=== PATIENT | female | born 1955 | race Caucasian/White ===

== ENCOUNTER 2019-11-14 13:07 | Outpatient (CLI) | payer MEDICARE, MEDICAID, SELFPAY ==
--- NOTE | ~2019-11-14 | CT_ITS ---
EXAMINATION: CT hip LT wo con, CT hip RT wo con, CT pelvis wo con DATE: 11/14/2019 14:24 INDICATION: Low back and bilateral hip pain TECHNIQUE: High resolution computed tomography (CT) of the pelvis and of the left and right hips was performed without intravenous contrast. Additional sagittal and coronal reconstructions were performe d. Automated exposure control and iterative reconstruction technique were employed. The dose-length p roduct for the combined studies was 1125.14 mGy-cm. COMPARISON: MR dated 08/29/[address] dated 05/01/2014 FINDINGS: Bone alignment is normal. No fracture. Osteoarthritis at the bilateral hips which has progressed sinc e the prior study. At the left hip there is extensive subarticular cystic change along the medial, cervantes perior and posterior aspects of the femoral head with additional subarticular cystic changes along th e posterior left acetabulum. There is moderate joint space are at the left hip which could be underes timated on nonweightbearing imaging. There is mild joint space narrowing at the right hip with mild s ubarticular cystic change along the posterior right acetabulum. No joint effusion at either hip. Ther e is spondylosis of the visualized mid to lower lumbar spine with moderate to severe bilateral facet osteoarthritis. Moderate disc height loss at L3-L4 and mild disc height loss at L5-S1. Rectus diastases with significant laxity of the lower anterior abdominal wall. Small fat-containing u mbilical hernia along a midline surgical scar. No significant interval change in a 5.5 x 3.8 cm parti ally calcified mass in the right lower quadrant visualized portions of the bowels are unremarkable wi th no wall thickening or obstruction. Cyst at the lower pole of the right kidney. The uterus and deco mpressed bladder are unremarkable. No pathologically enlarged pelvic or inguinal lymphadenopathy. IMPRESSION: 1. Moderate to severe left and mild to moderate right hip osteoarthritis. 2. Lumbar spondylosis with moderate to severe facet osteoarthritis in the mid to lower lumbar spine. 3. No significant interval change since 04/21/2014 in a chronic 5.5 x 3.6 cm partially calcified mixed solid and cystic mass in the right lower quadrant. Differential would include sclerosing mesenteriti s, carcinoid tumor and fat necrosis with heterotopic ossification. Reviewed, dictated and finalized at location A. IMPRESSION: 1. Moderate to severe left and mild to moderate right hip osteoarthritis. 2. Lumbar spondylosis with moderate to severe facet osteoarthritis in the mid t o lower lumbar spine. 3. No significant interval change since 04/21/2014 in a chronic 5.5 x 3.6 cm par tially calcified mixed solid and cystic mass in the right lower quadrant. Diffe rential would include sclerosing mesenteritis, carcinoid tumor and fat necrosis with heterotopic ossification. IMPRESSION: 1. Moderate to severe left and mild to moderate right hip osteoarthritis. 2. Lumbar spondylosis with moderate to severe facet osteoarthritis in the mid t o lower lumbar spine. 3. No significant interval change since 04/21/2014 in a chronic 5.5 x 3.6 cm par tially calcified mixed solid and cystic mass in the right lower quadrant. Diffe rential would include sclerosing mesenteritis, carcinoid tumor and fat necrosis with heterotopic ossification.
== END 2019-11-14 13:08 | disposition home or self-care (01) ==
LOC: ANHIMG 13:12
PROVIDERS: PCP Family Medicine; Visit Provider Nurse Practitioner Family
DX: M16.11 Unilateral primary osteoarthritis, right hip (principal); M25.552 Pain in left hip; M47.896 Other spondylosis, lumbar region
CPT/HCPCS: 72192; 73700

== ENCOUNTER 2020-01-30 12:29 | Outpatient (CLI) | payer MEDICARE, MEDICAID, SELFPAY ==
--- NOTE | ~2020-01-30 | MMUS_ITS ---
EXAMINATION: MM diagnostic amanda RT w anival, US breast RT limited HISTORY: Abnormal outside mammogram from imaging Center TECHNIQUE: Additional 3-D tomosynthesis images of the right breast were performed and synthetic 2-D i mages were generated. CAD analysis was submitted and interpreted. High resolution targeted right axil brett ultrasound breast ultrasound was performed. COMPARISON: 12/17/2019 outside right mammogram 09/26/2018 bilateral digital screening mammogram BREAST PARENCHYMAL COMPOSITION: The breast is almost entirely fatty. FINDINGS: MAMMOGRAPHIC FINDINGS: Postoperative change is again noted with surgical clips and prominent area of calcified fat necrosis as well as some retraction. There is an irregular approximately 1.4 cm mass in the right axillary tail area. ULTRASOUND: There is an irregular hypoechoic shadowing mass with internal vascularity at 10:00 11 cm from the nip ple, measuring up to approximately 1.5 cm. This has tentacle-like projections. This is highly suggest alex of malignancy. Appropriate action should be taken. IMPRESSION: 1. 1.5 cm irregular solid shadowing mass at 10:00 11 cm from nipple, highly suggestive of malignancy 2. Ultrasound-guided biopsy is recommended BI-RADS category 5, highly suggestive of malignancy. Dr. Montoya telephoned the report on 01/30/2020 at 1419 hours to [facility]'s office voicemail. Reviewed, dictated and finalized at location A. IMPRESSION: 1. 1.5 cm irregular solid shadowing mass at 10:00 11 cm from nipple, highly sug gestive of malignancy 2. Ultrasound-guided biopsy is recommended BI-RADS category 5, highly suggestive of malignancy. Dr. Montoya telephoned the report on 01/30/2020 at 1419 hours to [facility]'s off ice voicemail. IMPRESSION: 1. 1.5 cm irregular solid shadowing mass at 10:00 11 cm from nipple, highly sug gestive of malignancy 2. Ultrasound-guided biopsy is recommended BI-RADS category 5, highly suggestive of malignancy. Dr. Montoya telephoned the report on 01/30/2020 at 1419 hours to [facility] off ice voicemail.
== END 2020-01-30 12:30 | disposition home or self-care (01) ==
PROVIDERS: PCP Family Medicine; Visit Provider Nurse Practitioner Family
DX: R92.8 Other abnormal and inconclusive findings on diagnostic imaging of breast (principal)
CPT/HCPCS: 76642; 77061; 77065; G0279

== ENCOUNTER 2020-02-18 10:15 | Outpatient (CLI) | payer MEDICARE, MEDICAID, SELFPAY ==
--- NOTE | ~2020-02-18 | MMUS_ITS ---
EXAMINATION: US breast biopsy RT w image, MM post biopsy invasive RT DATE: 02/18/2020 12:20 (accession [id number]), 02/18/2020 12:33 (accession [id number]) INDICATION: Suspicious right breast mass. Ultrasound-guided core biopsy is requested to evaluate for malignancy. TECHNIQUE AND FINDINGS: The risks and potential benefits of the procedure were discussed with the patient including bleeding and infection. A time out was performed. The skin of the right breast was prepared and draped in usua l sterile fashion. 1% lidocaine was used for superficial anesthesia. 1% lidocaine with epinephrine wa s used for deep anesthesia. A vacuum-assisted biopsy gun needle was advanced through to the outer edge of the region of interest from an inferolateral approach utilizing sonographic guidance. A total of four tissue core samples we re obtained through the lesion. A tissue marker clip was then placed at the biopsy site. Hemostasis w as achieved. A sterile bandage was applied. The patient tolerated procedure well and there was no evidence of immediate complication. The patient was given verbal instructions to return to the Emergency Department in the event of severe breast pa in or rapid breast enlargement. A two view right breast mammogram was obtained to document tissue mar ker clip placement. IMPRESSION: 1. Successful ultrasound-guided vacuum-assisted biopsy of right breast mass with tissue marker placem ent. Reviewed, dictated and finalized at location A. X UNIX SYSTEM ADMINISTRATOR IMPRESSION: 1. Successful ultrasound-guided vacuum-assisted biopsy of right breast mass wit h tissue marker placement.
== END 2020-02-18 10:16 | disposition home or self-care (01) ==
PROVIDERS: PCP Family Medicine; Visit Provider Internal Medicine Medical Oncology
DX: C50.411 Malignant neoplasm of upper-outer quadrant of right female breast (principal); Z17.0 Estrogen receptor positive status [ER+]; N63.10 Unspecified lump in the right breast, unspecified quadrant
CPT/HCPCS: 19083; 88305; 88342; A4648

== ENCOUNTER 2020-06-10 14:40 | Outpatient (CLI) | payer MEDICARE, MEDICAID, SELFPAY ==
--- NOTE | ~2020-06-10 | US_ITS ---
US breast RT limited 06/10/2020 15:11 Indication: History of right breast cancer. Invasive ductal carcinoma. Biopsy performed on 02/18/2020 . 3 months of oral treatment. Procedure: High-resolution Limited ultrasound of the right breast Comparison: Ultrasound dated 02/18/2020 and 01/30/2020 Findings: At 10:00, 11 cm from the nipple, there is a hypoechoic mass with posterior shadowing measur ing 1.0 x 1.0 x 0.9 cm compared with 1.7 x 1.2 x 1.0 cm on prior ultrasound. No additional masses are identified. No internal vascularity. Impression: 1: Decreased size of hypoechoic solid mass right breast at 10:00, 11 cm from the nipple. BI-RADS category 6- Known biopsy proven malignancy: Appropriate action should be taken. Reviewed, dictated and finalized at location A. TER Impression: 1: Decreased size of hypoechoic solid mass right breast at 10:00, 11 cm from th e nipple. BI-RADS category 6- Known biopsy proven malignancy: Appropriate action should b e taken.
== END 2020-06-10 14:41 | disposition home or self-care (01) ==
LOC: ANHIMG 14:51
PROVIDERS: PCP Nurse Practitioner Family; Visit Provider Internal Medicine Medical Oncology
DX: C50.411 Malignant neoplasm of upper-outer quadrant of right female breast (principal); Z17.0 Estrogen receptor positive status [ER+]
CPT/HCPCS: 76642

== ENCOUNTER 2020-09-11 13:50 | Outpatient (CLI) | payer MEDICARE, MEDICAID, SELFPAY ==
--- NOTE | ~2020-09-11 | US_ITS ---
US breast RT limited 09/11/2020 14:37 Indication: History of right breast cancer. Evaluate change in size. Procedure: High-resolution Limited ultrasound of the right breast Comparison: Comparison to multiple prior studies sequentially, with oldest reviewed study dated 01/09. Findings: At 10:00, 11 cm from the nipple, there is an oval hypoechoic mass with posterior shadowing measuring 9.1 x 8.6 x 8.2 cm compared with 9.8 x 9.2 x 9.6 cm on prior examination. This mass measure d 14.6 x 15.3 x 9.7 cm on 01/30/2020. Impression: 1: Decreased size of solid hypoechoic right breast mass located at 10:00, 11 cm from the nipple. BI-RADS category 6- Known biopsy proven malignancy: Appropriate action should be taken. Reviewed, dictated and finalized at location A. Impression: 1: Decreased size of solid hypoechoic right breast mass located at 10:00, 11 cm from the nipple. BI-RADS category 6- Known biopsy proven malignancy: Appropriate action should b e taken.
== END 2020-09-11 13:51 | disposition home or self-care (01) ==
PROVIDERS: PCP Nurse Practitioner Family; Visit Provider Internal Medicine Medical Oncology
DX: N63.10 Unspecified lump in the right breast, unspecified quadrant (principal); R92.8 Other abnormal and inconclusive findings on diagnostic imaging of breast
CPT/HCPCS: 76642

== ENCOUNTER 2021-01-13 14:27 | Outpatient (CLI) | payer MEDICARE, MEDICAID, SELFPAY ==
--- NOTE | ~2021-01-13 | US_ITS ---
US breast RT limited DATE: 01/13/2021 14:58 INDICATION: Malignant neoplasm of upper outer quadrant of right breast TECHNIQUE: Real-time imaging targeted to right upper outer quadrant breast mass at 10:00 11 cm from t he nipple COMPARISON: 09/11/2020 right Limited breast ultrasound FINDINGS: There is mildly diminished size of the upper outer quadrant right breast mass at 10:00 11 c m from the nipple, currently measuring approximately 8.5 mm maximal dimension compared to 9.8 mm maxi mal dimension on 06/27/2020. Mild associated posterior shadowing is noted. IMPRESSION: BI-RADS Category 6: Known right breast malignancy Mildly diminished size of 10:00 right breast mass since 06/27/2020 Reviewed, dictated and finalized at Location A. Reviewed, dictated and finalized at location A.
== END 2021-01-13 14:28 | disposition home or self-care (01) ==
LOC: ANHIMG 14:32
PROVIDERS: PCP Nurse Practitioner Family; Visit Provider Internal Medicine Medical Oncology
DX: C50.411 Malignant neoplasm of upper-outer quadrant of right female breast (principal); Z17.0 Estrogen receptor positive status [ER+]
CPT/HCPCS: 76642

== ENCOUNTER 2021-01-28 15:00 | Outpatient (CLI) | payer MEDICARE, MEDICAID, SELFPAY ==
--- NOTE | ~2021-01-28 | MM_ITS ---
EXAMINATION: MM screening amanda BI w anival HISTORY: Screening; status post right partial mastectomy and radiotherapy for breast cancer. TECHNIQUE: Craniocaudal and mediolateral oblique 3-D tomosynthesis images were obtained and synthetic 2-D images were generated. CAD analysis was submitted and interpreted. COMPARISON: No prior mammogram is available for comparison at this institution. BREAST PARENCHYMAL COMPOSITION: The breasts are almost entirely fatty. FINDINGS: Right breast: There is prominent calcified fat necrosis and adjacent surgical clips and some overlyin g retraction in the anterior central right breast consistent with prior partial mastectomy There is a biopsy marker associated with an approximately 8 x 9 mm mildly irregular mass in the right axillary tail on MLO view. This corresponds to the hypoechoic mass with posterior shadowing in the r ight breast at 10:00 11 cm from the nipple noted on 01/13/2021 Limited right breast ultrasound examina tion Left breast: There is no evidence of suspicious mass, calcification, or architectural distortion to s uggest malignancy in the left breast. There has been no suspicious interval change. IMPRESSION: 1. Known right breast malignancy 2. Approximately 8 x 9 mm mildly irregular likely malignant lesion in the right axillary tail 3. Status post right partial mastectomy for breast cancer BI-RADS Category 6: Known right breast malignancy Reviewed, dictated and finalized at location A.
== END 2021-01-28 15:01 | disposition home or self-care (01) ==
LOC: ANHIMG 15:03
PROVIDERS: PCP Nurse Practitioner Family; Visit Provider Internal Medicine Medical Oncology
DX: Z12.31 Encounter for screening mammogram for malignant neoplasm of breast (principal)
CPT/HCPCS: 77063; 77067

== ENCOUNTER → 2021-02-17 15:13 | Outpatient (CLI) | payer OTHER, SELFPAY ==
--- NOTE | ~2021-02-17 | XR_ITS ---
XR knee LT 2V 02/17/2021 15:38 Indication: Left knee pain Procedure: 2 views left knee Comparison: No prior studies for comparison. Findings: There is severe osteoarthritis of the left knee. No acute fracture or traumatic malalignmen t. Large amount of suprapatellar soft tissue swelling. Osteopenia. Impression: 1: Severe osteoarthritis of the left knee. Reviewed, dictated and finalized at location A. PLATE GRAINER Impression: 1: Severe osteoarthritis of the left knee.
--- NOTE | ~2021-02-17 | XR_ITS ---
EXAMINATION: XR knee RT 2V DATE: 02/17/2021 15:38 INDICATION: Right knee pain. TECHNIQUE: 2 views of right knee standing were obtained. COMPARISON: None. FINDINGS: There is varus angulation at the knee. No fracture. There is severe osteoarthritis of media l and patellofemoral compartments and mild osteoarthritis of lateral compartment. No knee joint effus ion. IMPRESSION: 1. Severe right knee osteoarthritis. Reviewed, dictated and finalized at location A. K MASON
== END ==
PROVIDERS: Visit Provider Nurse Practitioner Family
DX: M25.561 Pain in right knee (principal); M25.562 Pain in left knee; M17.0 Bilateral primary osteoarthritis of knee
CPT/HCPCS: 73560

== ENCOUNTER 2021-05-19 15:06 | Outpatient (CLI) | payer MEDICARE, MEDICAID, SELFPAY ==
--- NOTE | ~2021-05-19 | CT_ITS ---
EXAMINATION:CT diagnostic chest w con DATE: 05/19/2021 16:39 INDICATION: Other nonspecific abnormal finding in lung field. Left lung mass. TECHNIQUE: Computed tomography (CT) of the chest was performed with 75 mL Omnipaque 350 intravenous c ontrast. Automated exposure control and iterative reconstruction technique were employed. The dose-le ngth product (DLP) was 786.05 mGy-cm. COMPARISON: CT abdomen and pelvis 04/21/2014 FINDINGS: There is a 5.0 x 5.0 cm mass in left lung upper lobe. There is a 12 mm nodule in left upper lobe. There is a 15 mm nodule left lower lobe. There is a 4.3 x 1.7 cm mass in left lower lobe. Ther e is mild peripheral scarring in anterior right lung. There is mild atelectasis bilaterally. No pleur al effusion. There is a multinodular goiter. Cardiomegaly is noted. There are coronary artery calcifi cations. No pericardial effusion. The central pulmonary arteries are enlarged, consistent with pulmon stephani arterial hypertension. There is moderate thoracic spondylosis. IMPRESSION: 1. Masses and nodules in left lung, consistent with metastatic disease. Reviewed, dictated and finalized at location A. NTED HOGSHEAD ASSEMBLER
--- NOTE | ~2021-05-19 | US_ITS ---
EXAMINATION: US breast RT limited HISTORY: Malignant neoplasm of the upper outer quadrant of the right breast TECHNIQUE: Limited right breast ultrasound is performed. COMPARISON: 01/13/2021, 09/11/2020, 06/10/2020 FINDINGS: There is a stable 8 mm x 5 mm oval, circumscribed, parallel, hypoechoic mass with posterior acoustic shadowing and no internal vascularity at the 10:00 location 11 cm from the nipple correspon ding to the known malignancy. There has been no suspicious interval change. IMPRESSION: Stable right breast mass, consistent with known malignancy. BI-RADS category 6, known, biopsy-proven malignancy. Reviewed, dictated and finalized at location A. T SPECIALIST
[2021-05-19 16:37] LABS: Estimated Glomerular Filt Rate > 60
== END 2021-05-19 15:07 | disposition home or self-care (01) ==
LOC: ANHIMG 15:17
PROVIDERS: PCP Nurse Practitioner Family; Visit Provider Internal Medicine Medical Oncology
DX: C50.411 Malignant neoplasm of upper-outer quadrant of right female breast (principal); Z17.0 Estrogen receptor positive status [ER+]; R91.8 Other nonspecific abnormal finding of lung field
CPT/HCPCS: 71260; 76642; Q9967

== ENCOUNTER 2021-06-01 08:41 | Outpatient (CLI) | payer MEDICARE, MEDICAID, SELFPAY ==
[2021-05-25 11:37] VITALS: BMI 59.9
--- NOTE | 2021-05-25 12:05 | PC.NURSE ---
Report to the Outpatient Waiting Room, entrance under the green pavilion located off [facility], at time 0900 on date 06/01/21. OR Time: 1100. - You will be asked a series of questions to screen for COVID 19 for your protection. - A mask is required within the hospital. - One visitor is allowed at this time. Preoperative COVID Testing Requirements: TO BRING COPY OF COVID CARD No COVID Test needed if: (proof is required; if not received patient will have Rapid Test prior to entry) - Patient has received COVID Vaccine at least 14 days prior to procedure date or - Patient has positive COVID test result within last 90 days of surgery date. COVID Test needed if above criteria is not met - No food/DRINK FOR 6 HOURS PRIOR TO PROCEDURE from midnight until time of surgery Take the following medications with a SIP of water the morning of surgery: Medications to discontinue per physician WARFARIN Date to take last dose: 7 DAYS PRIOR TO PROCEDURE Please no make-up, nail uzbek, hairspray, perfume, deodorant, or body powder the day of surgery. No jewelry (including any body piercings) or valuables the day of surgery, leave them at home. Please take a shower or bath the night before, or the morning of, surgery with an antibacterial soap. Wear comfortable, loose fitting clothing. - Jewelry must be removed prior to entering the operating room. Rings and piercings that are not removed may be cut off. - The hospital will not accept responsibility for valuables. - Please leave all valuables, including medications, at home the day of surgery. If you are going home after surgery, a licensed otr owner operator truck driver must drive you home. - NO public transportation without another adult. - We recommend that an adult stay with you for 24 hours following discharge. - We also recommend that you do not drive, make important decision, drink alcoholic beverages, or take any drugs that were not prescribed by your health care provider for at least 24 hours after your discharge time. Follow any additional instructions given to you from your surgeon. Telephone instructions given to RIGO HERNANDEZ and asked if any additional questions and then verbalized understanding. Patient advised to call surgeon office or pre surgery nurse liaison [phone] if any additional questions.
[2021-06-01] VITALS (11 sets, daily range): BP systolic 102–137; BP diastolic 59–79; PULSE 83–107; RESP 18–24; TEMP 35.8; O2SAT 92–99
--- NOTE | ~2021-06-01 | XR_ITS ---
EXAMINATION: XR chest 1V portable DATE: 06/01/2021 14:21 INDICATION: Status post percutaneous left lung biopsy TECHNIQUE: frontal view of the chest was obtained. COMPARISON: Chest radiograph dated 06/01/2021 at 12:11 PM FINDINGS: Left upper lobe and left infrahilar masses concerning for malignancy either primary or metastatic. Un changed opacity at the right lower lung zone and based on prior CT favor atelectasis/scarring over pn eumonia. No pleural effusion or pneumothorax. Cardiomegaly. IMPRESSION: 1. No pneumothorax, pleural effusion or other acute cardiopulmonary disease post biopsy of a left api frank mass which along with a left infrahilar mass are concerning for malignancy either primary or meta static. 2. Unchanged opacity right lower lung zone and favor atelectasis over pneumonia. 3. Cardiomegaly. Reviewed, dictated and finalized at location A. EDITED FARM MANAGER IMPRESSION: 1. No pneumothorax, pleural effusion or other acute cardiopulmonary disease pos t biopsy of a left apical mass which along with a left infrahilar mass are conc erning for malignancy either primary or metastatic. 2. Unchanged opacity right lower lung zone and favor atelectasis over pneumonia . 3. Cardiomegaly.
--- NOTE | ~2021-06-01 | XR_ITS ---
EXAMINATION: XR chest 1V DATE: 06/01/2021 11:19 INDICATION: Status post percutaneous left lung biopsy. TECHNIQUE: frontal view of the chest was obtained. COMPARISON: Chest CT dated 05/20/2021 FINDINGS: Masslike opacity at the left apex suspicious for primary bronchogenic carcinoma. Subtle opacity in th e left lower lobe corresponding to a second mass similarly suspicious for malignancy. Airspace opacit y in the right lower lung zone in the region of discoid atelectasis/scarring on the prior CT. No pleu ral effusion or pneumothorax. Cardiomegaly. IMPRESSION: 1. No pneumothorax post biopsy of a left upper lobe mass which along with a more subtle mass in the l eft lower lobe are concerning for malignancy/metastatic disease. 2. Opacities in the right lower lung zone most likely atelectasis. Reviewed, dictated and finalized at location A. OWAVE TECHNICIAN IMPRESSION: 1. No pneumothorax post biopsy of a left upper lobe mass which along with a mor e subtle mass in the left lower lobe are concerning for malignancy/metastatic d isease. 2. Opacities in the right lower lung zone most likely atelectasis.
--- NOTE | ~2021-06-01 | CT_ITS ---
EXAMINATION: CT biopsy lung w/imaging DATE: 06/01/2021 11:35 INDICATION: Lung biopsy TECHNIQUE: The procedure including the risks and benefits was discussed with the patient. Risks discu ssed included infection, approximately 1/20 risk of symptomatic hemorrhage beyond mild hemoptysis, ap proximately 1/3 risk of pneumothorax, and approximately 1/10 risk of pneumothorax severe enough to wa rrant chest tube placement. The patient understood the risks and agreed to proceed. The patient was p laced supine. The skin overlying the left infraclavicular anterior chest was prepped and draped in s terile fashion. Anesthetic was administered with 1% lidocaine subcutaneously. A 19 gauge outer need le was advanced under CT guidance to the lesion of interest. A 20 gauge core biopsy needle was then u sed to obtain 3 core biopsy specimens. The needle was removed and the entry site was cleaned and dres sed. There were no immediate complications. The dose-length product was 190.57 mGy-cm. FINDINGS: CT images demonstrate the outer needle tip just within a 5.2 x 4.5 cm left apical mass with lobular and spiculated margins. IMPRESSION: 1. Successful CT-guided biopsy of a 5.2 cm left apical mass concerning for malignancy which could be either primary or metastatic. Reviewed, dictated and finalized at location A. EY RESEARCH CENTER DIRECTOR IMPRESSION: 1. Successful CT-guided biopsy of a 5.2 cm left apical mass concerning for mal ignancy which could be either primary or metastatic.
--- NOTE | ~2021-06-01 | XR_ITS ---
EXAMINATION: XR chest 1V portable DATE: 06/01/2021 12:16 INDICATION: One hour post percutaneous lung biopsy TECHNIQUE: frontal view of the chest was obtained. COMPARISON: Chest radiograph dated 06/01/2021 at 11:18 AM FINDINGS: Mass at the left upper lung zone. Additional unchanged mild airspace opacities in the bilateral lower lung zones. No pleural effusion or pneumothorax. Cardiomegaly. IMPRESSION: 1. No pneumothorax or pleural effusion post exchange biopsy of a left apical mass concerning for paula gnancy. 2. Opacities in the bilateral lower lung zones likely related to additional malignancy on the left an d atelectasis/scarring on the right. 3. Cardiomegaly. Reviewed, dictated and finalized at location A. ATE DUTY AIDE IMPRESSION: 1. No pneumothorax or pleural effusion post exchange biopsy of a left apical ma ss concerning for malignancy. 2. Opacities in the bilateral lower lung zones likely related to additional mal ignancy on the left and atelectasis/scarring on the right. 3. Cardiomegaly.
[2021-06-01 09:52] LABS: Mean Platelet Volume 9.1 fl (7.4-10.4); Platelet Count Result 219 k/mm3 (150-375)
[2021-06-01 10:02] LABS: Prothrombin Time 13.1 Seconds (11.1-14.7)
== END 2021-06-01 15:08 | disposition home or self-care (01) ==
PROVIDERS: PCP Nurse Practitioner Family; Visit Provider Radiology Diagnostic Radiology
PROC: BB24ZZZ Computerized Tomography (CT Scan) of Bilateral Lungs (ICD-10-PCS; CPT 32408; principal; 2021-06-01 11:00)
DX: R91.8 Other nonspecific abnormal finding of lung field (principal); I51.7 Cardiomegaly
CPT/HCPCS: 32408; 36415; 71045; 85049; 85610; 88305

== ENCOUNTER 2021-09-15 15:01 | Outpatient (CLI) | payer MEDICARE, MEDICAID, SELFPAY ==
--- NOTE | ~2021-09-15 | US_ITS ---
EXAMINATION: US breast RT limited HISTORY: Patient presents for surveillance of a medically managed known right breast cancer TECHNIQUE: Limited right breast ultrasound is performed in the upper outer quadrant. FINDINGS: There is a stable 8 mm x 6 mm oval, circumscribed, parallel, hypoechoic mass with posterior acoustic shadowing and peripheral vascularity at the 10:00 location 11 cm from the nipple. There has been no suspicious interval change. IMPRESSION: Stable right breast mass, consistent with known malignancy. BI-RADS category 6, known, biopsy-proven malignancy. Reviewed, dictated and finalized at location A.
== END 2021-09-15 15:02 | disposition home or self-care (01) ==
PROVIDERS: PCP Nurse Practitioner Family; Visit Provider Internal Medicine Medical Oncology
DX: C50.411 Malignant neoplasm of upper-outer quadrant of right female breast (principal); Z17.0 Estrogen receptor positive status [ER+]
CPT/HCPCS: 76642

== ENCOUNTER 2023-02-03 21:59 | Inpatient (IN) | payer MEDICARE, MEDICAID, SELFPAY ==
--- NOTE | ~2023-02-03 | XR_ITS ---
EXAMINATION: XR chest 1V portable INDICATION: Altered mental status TECHNIQUE: Portable AP chest at 2322 hours COMPARISON: 06/01/2021 FINDINGS: Cardiomegaly is noted. There is a chronic left upper lobe mass with decrease in size. There are minimal airspace opacities of the left lung base. No pleural effusion or pneumothorax. IMPRESSION: 1. Minimal left basilar airspace opacity, consistent with atelectasis versus pneumonia. 2. Cardiomegaly. 3. Left upper lobe mass with slight decrease in size. Reviewed, dictated and finalized at location F. IMPRESSION: 1. Minimal left basilar airspace opacity, consistent with atelectasis versus pn eumonia. 2. Cardiomegaly. 3. Left upper lobe mass with slight decrease in size.
--- NOTE | ~2023-02-03 | CT_ITS ---
EXAMINATION: CTA chest PE abdomen pel DATE: 02/04/2023 00:59 INDICATION: Suprapubic and periumbilical abdominal tenderness. Rule out pulmonary embolus. TECHNIQUE: Computed tomography (CT) of the chest, abdomen and pelvis was performed with 100 CC Omnipa que 350 intravenous contrast. Automated exposure control and iterative reconstruction technique were employed. Exam dose: 2348.27 mGy-cm total exam DLP. COMPARISON: 02/04/2020 portable AP chest 05/29/2021 CT chest FINDINGS: There is chronic soft tissue mass density extending from the left hilum into the left apica l area, measuring up to approximately 4.5-5 cm dimension. A similar chronic soft tissue density is no hannah in the posteromedial left mid lung. There is an irregular up to 2.2 cm irregular soft tissue mass density in the posterior left lung base, left lower lobe, increased in size since . New approximately 10 x 12 mm opacity is noted peripherally in the anterolateral right upper lobe. Differential diagnosis for the bilateral pulmonary opacities includes primary lung cancer and metasta tic disease; invasive ductal carcinoma was diagnosed in upper outer quadrant of right breast on 2019 ultrasound-guided biopsy procedure. Recommend correlation with results of June 01 CT lung biopsy. Chronic discoid scarring of the middle lobe. There is discoid atelectasis or scarring and posteromedi al right lower lobe basilar atelectasis or consolidation or mass lesion. Small right pleural effusion. Cardiomegaly. No pericardial effusion. There is diagnostic contrast enhancement of the pulmonary arteries and no central pulmonary emboli. E valuation of peripheral pulmonary arteries is limited due to motion. No hilar or mediastinal mass lesion or lymphadenopathy. No thoracic aortic aneurysm or dissection is evident. Coronary artery calcifications. The abdominal CT examination is limited due to exclusion of a portion the anterior left abdomen due t o morbid obesity. There is cholelithiasis. There is suggestion of increased gallbladder wall thickness. Image detail is limited due to body habitus. Consider gallbladder ultrasound for further evaluation. No hepatic, splenic, pancreatic space-occupying mass lesion is evident. No bile duct or pancreatic du ct dilatation. Normal morphology of the adrenal glands. Approximately 5.8 cm upper pole right renal cyst. Probable 9 mm right renal cyst. No ureteral calculus or hydroureteronephrosis is evident. The urinary bladder is unremarkable. Approximately 4 x 5 cm partially calcified right adnexal mass is noted. No bowel obstruction or intraperitoneal free air is evident. No suspicious osteolytic or osteoblastic lesions are noted. IMPRESSION: Limited examination due to body habitus; portions of the abdomen are excluded as result. Cholelithiasis, cannot exclude acute cholecystitis Bilateral medullary mass densities suggesting primary and/or metastatic disease Cardiomegaly No central pulmonary embolism is evident Right renal cysts 4 x 5 cm extensively calcified right adnexal mass Reviewed, dictated and finalized at [facility]. Reviewed, dictated and finalized at location A. IMPRESSION: Limited examination due to body habitus; portions of the abdomen a re excluded as result. Cholelithiasis, cannot exclude acute cholecystitis Bilateral medullary mass densities suggesting primary and/or metastatic disease Cardiomegaly No central pulmonary embolism is evident Right renal cysts 4 x 5 cm extensively calcified right adnexal mass
--- NOTE | ~2023-02-03 | CT_ITS ---
EXAMINATION: CT brain wo con DATE: 02/04/2023 20:58 INDICATION: microhemorrhages mentioned on previous exam . TECHNIQUE: Computed tomography (CT) of the head was performed without intravenous contrast. The mA wa s adjusted according to patient size. Iterative reconstruction technique was employed. The dose-lengt h product was 605.33 mGy-cm. COMPARISON: 02/04/2023 12:32 AM. FINDINGS: No definite acute intracranial hemorrhage or extra-axial fluid collection. No hydrocephalus, mass, or herniation. No acute ischemic infarct. Unremarkable dural venous sinus attenuation. No acute osseous abnormality. The aerated spaces are clear. Unchanged focal hyperdensities in the left basal ganglia. IMPRESSION: Unchanged focal hypodensities in the left basal ganglia, likely representing basal ganglia calcificat ion. Reviewed, dictated and finalized at location K. IMPRESSION: Unchanged focal hypodensities in the left basal ganglia, likely representing ba shaneka ganglia calcification.
--- NOTE | ~2023-02-03 | CT_ITS ---
EXAMINATION: CT brain wo con DATE: 02/04/2023 00:58 INDICATION: Altered mental state TECHNIQUE: Computed tomography (CT) of the head was performed without intravenous contrast. The mA wa s adjusted according to patient size. Iterative reconstruction technique was employed. Exam dose: 60 5.33 mGy-cm total exam DLP. COMPARISON: None FINDINGS: Small focal hyperdensities in the left basal ganglia may be left basal ganglia calcificatio n, less likely small hematomas. No prior CT had examinations available for comparison. Consider short -term follow-up CT brain examination. No intracranial hemorrhage is noted otherwise. Prominent bilateral carotid siphon internal carotid artery calcifications and mild vertebrobasilar ar concha calcification. No intracranial mass lesion or cerebrovascular accident is detected. No midline shift or mass effect. Normal ventricular size. No subdural or epidural hematoma is detected. The paranasal sinuses and mastoid air cells are normally developed and aerated. No fracture or bone destruction of the cranial vault. IMPRESSION: Probable mild left basal ganglia calcification versus less likely small hemorrhages. Con securities settlement processor short-term CT brain follow-up Otherwise no significant intracranial abnormality Cerebral atherosclerosis Reviewed, dictated and finalized at [facility]. Reviewed, dictated and finalized at location A. IMPRESSION: Probable mild left basal ganglia calcification versus less likely small hemorrhages. Consider short-term CT brain follow-up Otherwise no significant intracranial abnormality Cerebral atherosclerosis
[2023-02-03 22:06] VITALS: BP 115/47; PULSE 100; RESP 17; TEMP 36.3
--- NOTE | 2023-02-03 22:16 | ECG_ITS ---
Measurements Intervals [place] Rate: 141 P: [place]: 0 QRS: 89 QRSD: 89 T: -5 QT: 290 QTc: 444 Interpretive Statements ATRIAL FIBRILLATION WITH RAPID VENTRICULAR RESPONSE WITH ABERRANT CONDUCTION OR VENTRICULAR PREMATURE COMPLEXES BASELINE ARTIFACT POSSIBLE RIGHT VENTRICULAR CONDUCTION DELAY [RSR (QR) IN V1/V2] NONSPECIFIC ST & T-WAVE ABNORMALITY ABNORMAL ECG NO PREVIOUS ECG AVAILABLE FOR COMPARISON Electronically Signed On 02-04-2023 14:37:07 CDT by Jarret Verduzco M.D.
[2023-02-03 22:30] VITALS: BP 125/82; PULSE 144; RESP 23; O2SAT 97
[2023-02-03 22:45] VITALS: BP 117/82; PULSE 132; RESP 16; O2SAT 91
--- NOTE | 2023-02-03 22:46 | ED.GENADULT ---
HPI - General Adult General Chief complaint: Altered Mental Status <Lance Guillen PA-C - Last Filed: 02/04/23 17:00> Stated complaint: confusion, new chemo, uti? <Lance Guillen PA-C - Last Filed: 02/04/23 17:00> Time Seen by Provider: 02/03/23 22:26 <Lance Guillen PA-C - Last Filed: 02/04/23 17:00> Source: patient <Lance Guillen PA-C - Last Filed: 02/04/23 17:00> Mode of arrival: ambulatory <Lance Guillen PA-C - Last Filed: 02/04/23 17:00> Limitations: no limitations <Lance Guillen PA-C - Last Filed: 02/04/23 17:00> History of Present Illness HPI narrative: This is a 67-year-old female with PMH of stage III lung cancer, T2DM, breast cancer, CHF, HTN, HLD, who presents to the ED with daughter and friend and chief complaint of altered mental status beginning earlier today. Patient's daughter reports that she tried calling her several times today and the patient was not making sense over the phone. She reports patient is normally alert and oriented x4 but is A&O x2 today. Daughter reports that she feels patient has not been taking her normal medications today and potentially yesterday as well. She reports 2 days ago she had a chemo for the lung cancer and is unsure if this is related. She also has concern for possible UTI. Patient states that she feels confused at times. Denies shortness of breath. She is on 2 L of oxygen which is new for her. Denies chest pain, headache, abdominal pain, urinary problems or vomiting. <Lance Guileln PA-C - Last Filed: 02/04/23 17:00> This is a 67-year-old female with PMH of stage III lung cancer, T2DM, breast cancer, CHF, HTN, HLD, who presents to the ED with daughter and friend and chief complaint of altered mental status beginning earlier today. Patient's daughter reports that she tried calling her several times today and the patient was not making sense over the phone. She reports patient is normally alert and oriented x4 but is A&O x2 today. Daughter reports that she feels patient has not been taking her normal medications today and potentially yesterday as well. She reports 2 days ago she had a chemo for the lung cancer and is unsure if this is related. She also has concern for possible UTI. Patient states that she feels confused at times. Denies shortness of breath. She is on 2 L of oxygen which is new for her. Denies chest pain, headache, abdominal pain, urinary problems or vomiting. States that she talked to the patient night and she appeared well and then the next time she spoke to her was Monday around 5 PM when she noticed that she sounded confused and was not answering the phone after multiple phone calls and then finally answered. Patient denies any current complaints. Daughter notes that the patient has been getting treated with immunotherapy for adenocarcinoma of the lung and was recently switched to a new chemotherapy. Daughter does note that the patient can sometimes be slightly altered but typically knows who the president is and what year it is but sometimes is little bit slow to provide an answer. Patient admits to a history of needing CPAP but has not worn it in years. Daughter notes that the patient has a tray of medicines that she supposed to be taking however she noticed that the Monday and medications did not appear to be taken as prescribed and she was not taking the medications as she supposed to. Patient denies fever, vaginal bleeding, vaginal discharge, dysuria, hematuria, urinary frequency, urinary urgency. <Marc Ramos, - Last Filed: 02/04/23 04:53> Related Data Home medications: Home Medications Medication Instructions Recorded Confirmed pregabalin 100 mg capsule (Lyrica) 100 mg PO BID 11/12/19 02/04/23 anastrozole 1 mg tablet 1 mg PO DAILY 07/02/20 02/04/23 diphenhydramine 25 2 tablet PO QHS PRN Insomnia 12/24/20 02/04/23 mg-acetaminophen 500 mg tablet (Tylenol PM Extra Strength)
[2023-02-03 23:00] VITALS: BP 114/70; PULSE 137; RESP 16; O2SAT 98
[2023-02-03 23:00] LABS: Appearance Urine Cloudy (Clear); Bacteria Urine None Seen /hpf; Bilirubin Urine Negative (Negative); Blood Urine Negative (Negative); Color Urine Yellow (Yellow); Glucose Urine UA Negative (Negative); Ketones Urine Negative (Negative); Leukocyte Esterase Ur Negative LEU/UL (Negative); Need Manual Microscopic Reviewed; Nitrate Urine Negative (Negative); Protein Urine 1+ mg/dL (Negative); RBC Urine 0-2 /hpf (0-2); Specific Grav Ur 1.019 (1.001-1.035); Squamous Epithelial Cell Urine Occasional /hpf (Few); WBC Urine 0-5 /hpf
[2023-02-03 23:07] LABS: Add Urine Microscopic? YES
[2023-02-03] MEDS: dilTIAZem HCl INJ 25 MG/5 ML VIAL 10 MG IV PUSH (23:07)
[2023-02-03 23:26] VITALS: O2SAT 99
[2023-02-03 23:30] VITALS: BP 124/75; PULSE 123; RESP 18; O2SAT 95
[2023-02-03 23:50] LABS: Basophils Percent Auto 0.1 % (0.2-1.2); Hematocrit 41.8 % (37.0-47.0); Hemoglobin 13.1 g/dL (12.0-15.0); Immature Granulocyte Absolute 0.03 K/mm3 (0.00-0.031); Immature Granulocyte Percent A 0.4 % (0-0.5); Lymphocytes Percent Auto 5.7 % (18.3-44.2); Mean Corpuscular HGB Conc 31.3 g/dl (32-36); Mean Corpuscular Hemoglobin 34.2 pg (26-34); Mean Corpuscular Volume 109.1 fl (80-100); Mean Platelet Volume 9.7 fl (7.4-10.4); Monocytes Absolute Auto 0.8 K/mm3 (0.1-0.6); Monocytes Percent Auto 11.3 % (2.6-8.5); Neutrophils Absolute Auto 5.8 K/mm3 (1.3-6.7); Neutrophils Percent Auto 82.5 % (45.5-73.1); Platelet Count Result 342 k/mm3 (150-375); Red Blood Count 3.83 M/mm3 (4.2-5.4); Red Cell Distribution Width 16.3 % (11.5-14.5)
[2023-02-04] VITALS (53 sets, daily range): BP systolic 100–150; BP diastolic 60–88; PULSE 87–150; RESP 10–27; TEMP 36.2–36.7; O2SAT 82–99; BMI 56.6
[2023-02-04 00:21] LABS: Alanine Aminotransferase 36 U/L (6-35); Albumin Level 3.8 g/dL (3.5-5.1); Alkaline Phosphatase 51 U/L (38-126); Anion Gap 3 mmol/L (8-16); Aspartate Amino Transferase 30 U/L (14-36); Bilirubin,Total 1.2 mg/dL (0.2-1.3); Blood Urea Nitrogen 28 mg/dL (7-17); Calcium 9.4 mg/dL (8.4-10.2); Carbon Dioxide 36 mmol/L (22-30); Chloride 98 mmol/L (98-107); Estimated CRCL calculation 120 ml/min; Estimated Glomerular Filt Rate > 60; Glucose 138 mg/dL (65-110); Potassium 4.5 mmol/L (3.4-5.0); Sodium 137 mmol/L (137-145)
[2023-02-04] MEDS: dilTIAZem HCl INJ 25 MG/5 ML VIAL 10 MG IV PUSH (00:23)
[2023-02-04 00:35] LABS: INR 1.1; Prothrombin Time 14.9 Seconds (11.1-14.7)
[2023-02-04 00:38] LABS: NT Pro B Type Natriuretic Pept 3820 pg/mL (19.9-100); Partial Thromboplastin Time 28.1 SECONDS (22.3-36.8)
[2023-02-04] MEDS: dilTIAZem 100 MG/100 ML 100 MG/100 ML BAG IV CONT (02:09)
[2023-02-04] MEDS: KETOROLAC 30 MG/ML VIAL (*BKC) IV PUSH (02:09)
[2023-02-04] MEDS: MAGNESIUM SULF 1 GM/D5W 100 ML 1 GM/100 ML BAG IVPB (03:21)
[2023-02-04 03:33] LABS: Lipase 95 U/L (23-300)
[2023-02-04] MEDS: SODIUM CHLORIDE 0.9% IV 500 ML 999 ML IV CONT (03:34)
[2023-02-04 03:44] LABS: Amphetamine Screen Urine Negative (Negative); Barbiturate Screen Urine Negative (Negative); Benzodiazepines Screen Urine Negative (Negative); Cannabinoid Screen Urine Negative (Negative); Cocaine Screen Urine Negative (Negative); Methadone Screen Urine Negative (Negative); Opiate Screen Urine Positive (Negative); Phencyclidine Screen Urine Negative (Negative)
[2023-02-04 03:45] LABS: Fractional Inspired Oxygen 28 %; HCO3 VBG 34.4 mEq/l (24.0-30.0); PCO2 VBG 55.9 mmHg (42.0-48.0)
[2023-02-04 03:47] LABS: Device NASAL CANNULA; PO2 VBG < 27.0 mmHg (35.0-45.0); pH VBG 7.407 (7.300-7.400)
[2023-02-04 04:00] LABS: Acetaminophen < 10 ug/mL (10-30); Ammonia < 9 umol/L (9-30); Ethanol < 10 mg/dL (<10); Lactic Acid Reflex 1.2 mmol/L (0.7-2.0); Salicylate < 1.0 mg/dL (2-20)
[2023-02-04 04:10] LABS: Influenza A QL RT-PCR Negative (Negative); Influenza B QL RT-PCR Negative (Negative); SARS-CoV-2 RNA PCR Negative (Negative)
[2023-02-04 04:10] LABS: Troponin I 0.021 ng/mL (0.000-0.034)
[2023-02-04 04:12] LABS: Troponin I 0.025 ng/mL (0.000-0.034)
[2023-02-04] MEDS: SODIUM CHLORIDE 0.9% IV 1,000 ML 500 ML IV CONT (05:14)
[2023-02-04] MEDS: METOPROLOL TARTRATE 50 MG TAB 100 MG PO ×3 (05:15→19:52)
--- NOTE | 2023-02-04 06:50 | PC.NURSE ---
This patient, Amanda Schultz, was admitted to IMU Room 200-01. Patient/family oriented to hospital policies and general routines including ID bracelet, bed and alarms, visiting hours, pain management, procedures, bathroom and other care routines, personal items, smoking policy, room service/diet, and visiting hours. Information on how to activate the Rapid Response Team has been discussed. Patient/Family are encouraged to report perceived risks to care and to ask questions if they do not understand what they are told or what they should do.
--- NOTE | 2023-02-04 09:51 | PM.IMHP ---
H&P: HPI History of Present Illness Date/Time: 02/04/23 09:51 Chief Complaint: altered mental status Narrative: 67F w/ PMH a fib on xarelto, CHF unspecified, HTN, HLD, NIDDM, CKD?, diabetic neuropathy, hypothyroidism, sleep apnea noncompliant, chronic pain/back pain, morbid obesity, hx of breast ca, L lung adenocarcinoma on chemo presents with AMS. This happened over 1-2 days, she lives alone. Daughter finally concerned and had her brought into the ER. The patient was found to be hypoxic on admission and admitted on 02/04. The patient shortly after admission is back to baseline mentation. She reports no symptoms, she did have vomiting for a day or two on 02/01, and has had wheezing since she had her cancer. She reports some time ago she was placed on oxygen for a short amount of time. She is noncompliant with CPAP, apparently saw a academic hospitalist and wasn't dx with any other lung conditions. The pt has a multitude of issues going on, mainly now she needs her pulmonary function optimized. 1) acute hypoxic hypercapnic respiratory failure - borderline, she did need o2 in the past, she may or may not need it going home. need pulmonology consult outpatient. she is asymptomatic - hypoxia: CAP vs OHS/VENKATA/COPD overlap vs lung cancer vs CHF - hypercapnia: OHS/VENKATA/COPD overlap vs AMS vs compensation secondary to metabolic alkalosis - counseled on compliance, start CPAP tonight, give duoneb x1, wean o2 as tolerated 2) CAP - non toxic, treat with ceftriaxone and azithromycin - f/u blood cultures 3) CHF unspecified - euvolemic. stop fluids, restart home dose lasix - daily weights, fluid restriction, I/O's. low salt diet 4) acute hypoxic encephalopathy - o2 plan as above. resolved. - CT head without acute issues, except for the questionable microhemorrhage. repeat CT today 5) NIDDM - accuchecks and ISS 6) HTN - monitor 7) CKD - reported in charting. no evidence of that currently. CTM 8) chronic pain - cont home dose of opioids. cont tele and pulse ox 9) primary metabolic alkalosis w/ secondary respiratory acidosis - diuretics, vomiting, VENKATA/OHS COPD. ctm FEN: saline lock IV, cardiac diabetic diet GI prophylaxis: not indicated DVT prophylaxis: hold until Ct brin done Lines: pIV Code Status: Full Code Dispo: stable. over 100+ minutes spent on charting, review, pt education and discussion. pt is strong willed, she has mentioned many times she will leave. I spent over 50 minutes alone counseling, educating and listening to patient. ultimately, if she wants to sign out AMA she can, she is now competent. [facility] Past Medical History Medical History (Updated 02/04/23 @ 04:53 by Marc Ramos DO) Atrial fibrillation CHF (congestive heart failure) follows with cardiology CKD (chronic kidney disease) stage 3, GFR 30-59 ml/min Follows with nephrology Diabetic peripheral neuropathy Enlarged thyroid left lobe Essential (primary) hypertension Hx of breast cancer Right breast, [place] [facility] Hyperlipidemia Hypothyroid Insomnia Lung cancer, upper lobe VENKATA (obstructive sleep apnea) Type 2 diabetes mellitus with diabetic neuropathy Vitamin D deficiency Surgical History Surgical History History of section History of tonsillectomy Family History Family History Father Family history of lung cancer, Onset Age: 72 Grandparent Family history of malignant neoplasm of breast Other Diabetes mellitus Family history of cardiovascular disease Family history of coronary artery disease Family history of malignant neoplasm of male breast Hypertension Social History Social History (Updated 08/09/22 @ 15:10 by Lolis Lazaro MA) Smoking packs per day: 1 Smoking cigarettes per day: 20.0 Years smoked: 35 Smoking pack-years: 35.00 Smoking status: Former smoker Smoking end date: 04/10/06 Alcohol int
[2023-02-04 10:28] LABS: Glucose Point of Care 132 mg/dl (65-105)
[2023-02-04] MEDS: oxyCODONE HCL (*CRX) 5 MG TAB IR PO ×3 (10:45→21:22)
[2023-02-04] MEDS: ANASTROZOLE (*CHEMO) 1 MG TABLET PO (10:59)
[2023-02-04] MEDS: PANTOPRAZOLE 40 MG TABLET PO (11:00)
[2023-02-04] MEDS: PREGABALIN (*CRX) 50 MG CAPSULE 100 MG PO ×2 (11:00→17:22)
[2023-02-04] MEDS: CHOLECALCIFEROL 1,000 UNITS TABLET 2000 UNITS PO (11:00)
[2023-02-04] MEDS: PRAVASTATIN SODIUM 10 MG TABLET PO (11:01)
[2023-02-04] MEDS: FUROSEMIDE 20 MG TABLET BY MOUTH (11:01)
[2023-02-04] MEDS: IPRATROPIUM BR 0.02% INH SOLN 0.5 MG/2.5 ML VIAL INHALATION (11:11)
[2023-02-04] MEDS: AZITHROMYCIN 500 MG/NS 250 ML 500 MG/250 ML BAG 250 MG IVPB (11:19)
[2023-02-04 12:23] LABS: Glucose Point of Care 119 mg/dl (65-105)
[2023-02-04 18:38] LABS: Glucose Point of Care 145 mg/dl (65-105)
[2023-02-04] MEDS: LOPERAMIDE HCL 2 MG CAPSULE PO (19:52)
[2023-02-04 23:59] LABS: Glucose Point of Care 124 mg/dl (65-105)
[2023-02-05] VITALS (20 sets, daily range): BP systolic 101–122; BP diastolic 53–82; PULSE 102–136; RESP 12–20; TEMP 36.3–36.8; O2SAT 90–100
[2023-02-05] MEDS: oxyCODONE HCL (*CRX) 5 MG TAB IR PO ×6 (01:32→22:28)
[2023-02-05 05:34] LABS: Basophils Absolute Auto 0.1 K/mm3 (0.0-0.1); Basophils Percent Auto 1.1 % (0.2-1.2); Eosinophils Percent Auto 0.9 % (0-4.4); Hematocrit 42.6 % (37.0-47.0); Hemoglobin 13.2 g/dL (12.0-15.0); Immature Granulocyte Absolute 0.03 K/mm3 (0.00-0.031); Immature Granulocyte Percent A 0.7 % (0-0.5); Lymphocytes Absolute Auto 0.98 K/mm3 (0.9-3.2); Lymphocytes Percent Auto 21.9 % (18.3-44.2); Mean Corpuscular Hemoglobin 34.5 pg (26-34); Mean Corpuscular Volume 111.2 fl (80-100); Mean Platelet Volume 9.9 fl (7.4-10.4); Monocytes Absolute Auto 0.2 K/mm3 (0.1-0.6); Monocytes Percent Auto 4.3 % (2.6-8.5); Neutrophils Absolute Auto 3.2 K/mm3 (1.3-6.7); Neutrophils Percent Auto 71.1 % (45.5-73.1); Platelet Count Result 348 k/mm3 (150-375); Red Blood Count 3.83 M/mm3 (4.2-5.4); Red Cell Distribution Width 16.3 % (11.5-14.5); White Blood Count 4.5 K/mm3 (4.5-10.0)
[2023-02-05] MEDS: LEVOTHYROXINE SODIUM 88 MCG TABLET PO (05:39)
[2023-02-05 05:50] LABS: Anion Gap 4 mmol/L (8-16); Blood Urea Nitrogen 26 mg/dL (7-17); Carbon Dioxide 35 mmol/L (22-30); Chloride 100 mmol/L (98-107); Estimated CRCL calculation 92 ml/min; Estimated Glomerular Filt Rate > 60; Glucose 116 mg/dL (65-110); Magnesium 2.2 mg/dL (1.6-2.3); Potassium 4.2 mmol/L (3.4-5.0); Sodium 139 mmol/L (137-145)
[2023-02-05 06:08] LABS: Procalcitonin 0.1 ng/mL
[2023-02-05 06:37] LABS: Basophilic Stippling 1+ (NORMAL); Platelet Estimate Adequate (Adequate)
[2023-02-05 06:38] LABS: Anisocytosis 1+ (NORMAL); Atypical Lymphocytes Present; Schistocytes None Seen (NORMAL)
[2023-02-05 08:03] LABS: Glucose Point of Care 111 mg/dl (65-105)
[2023-02-05] MEDS: CHOLECALCIFEROL 1,000 UNITS TABLET 2000 UNITS PO (08:38)
[2023-02-05] MEDS: PRAVASTATIN SODIUM 10 MG TABLET PO (08:38)
[2023-02-05] MEDS: PANTOPRAZOLE 40 MG TABLET PO (08:39)
[2023-02-05] MEDS: PREGABALIN (*CRX) 50 MG CAPSULE 100 MG PO ×2 (08:39→16:01)
[2023-02-05] MEDS: METOPROLOL TARTRATE 50 MG TAB 100 MG PO ×2 (08:39→20:54)
[2023-02-05] MEDS: ANASTROZOLE (*CHEMO) 1 MG TABLET PO (08:40)
[2023-02-05] MEDS: AZITHROMYCIN 500 MG/NS 250 ML 500 MG/250 ML BAG 250 MG IVPB (08:42)
[2023-02-05 12:37] LABS: Glucose Point of Care 113 mg/dl (65-105)
[2023-02-05] MEDS: SODIUM CHLORIDE 0.9% IV 500 ML IV CONT (13:26)
--- NOTE | 2023-02-05 15:06 | PM.IMPN ---
Progress Note: A&P Assessment and Plan (1) Essential (primary) hypertension: Code(s): I10 - Essential (primary) hypertension Status: Acute (2) Atrial fibrillation: Qualifiers: Atrial fibrillation type: unspecified Qualified Code(s): I48.91 - Unspecified atrial fibrillation Code(s): I48.91 - Unspecified atrial fibrillation Status: Acute (3) VENKATA (obstructive sleep apnea): Code(s): G47.33 - Obstructive sleep apnea (adult) (pediatric) Status: Acute (4) Atrial fibrillation with RVR: Code(s): I48.91 - Unspecified atrial fibrillation Status: Acute (5) Hypoxia: Code(s): R09.02 - Hypoxemia Status: Acute (6) Encephalopathy: Code(s): G93.40 - Encephalopathy, unspecified Status: Acute Plan 67F w/ PMH a fib on xarelto, CHF unspecified, HTN, HLD, NIDDM, CKD?, diabetic neuropathy, hypothyroidism, sleep apnea noncompliant, chronic pain/back pain, morbid obesity, hx of breast ca, L lung adenocarcinoma on chemo presents with AMS. This happened over 1-2 days, she lives alone. Daughter finally concerned and had her brought into the ER. The patient was found to be hypoxic on admission and admitted on 02/04. The patient shortly after admission is back to baseline mentation. She reports no symptoms, she did have vomiting for a day or two on 02/01, and has had wheezing since she had her cancer. She reports some time ago she was placed on oxygen for a short amount of time. She is noncompliant with CPAP, apparently saw a buttonhole maker hand and wasn't dx with any other lung conditions. 1) acute hypoxic hypercapnic respiratory failure - resolved. she did need o2 in the past, this seems to be an intermittent issue. need pulmonology consult outpatient. she is asymptomatic - hypoxia: CAP vs OHS/VENKATA/COPD overlap vs lung cancer vs CHF - hypercapnia: OHS/VENKATA/COPD overlap vs AMS vs compensation secondary to metabolic alkalosis - counseled on compliance of CPAP, she agrees to use it. 2) CAP - non toxic appearing otherwise, treat with ceftriaxone and azithromycin - f/u blood cultures 3) CHF unspecified - euvolemic. cont lasix home dosing - daily weights, fluid restriction, I/O's. low salt diet 4) acute hypoxic encephalopathy - o2 plan as above. resolved. - CT head without acute issues, except for the questionable microhemorrhage. repeat CT neg for hemorrhage 5) NIDDM - accuchecks and ISS 6) HTN - monitor 7) CKD - reported in charting. no evidence of that currently. CTM 8) chronic pain - cont home dose of opioids. cont tele and pulse ox 9) primary metabolic alkalosis w/ secondary respiratory acidosis - diuretics, vomiting, VENKATA/OHS COPD. ctm afib - slightly high HR. cont tele monitor . give extra dose 5mg iv metoprolol. increase BID dosing to 125mg BID FEN: saline lock IV, cardiac diabetic diet GI prophylaxis: not indicated DVT prophylaxis: cont home dose xarelto Lines: pIV Code Status: Full Code Dispo: stable. More than 35 minutes spent on chart review, patient interaction and assessment and plan. Subjective Date/time seen: 02/05/23 15:06 Interval history: NAOE. pt denies symptoms in spite of her heart rate being high. she still wants to go home, but understands it would be best for her to stay. denies chest pain or SOB. Review of Systems Review of Systems: All systems reviewed & are unremarkable except as noted in HPI and below Exam Const: General: comfortable Eyes: Pupils: Equal, round and reactive pupils present Resp: Effort & Inspection: normal respiratory effort Auscultation: clear to auscultation bilaterally Cardio: Rhythm: abnormal rhythm GI: Inspection: non-distended GI Palp: Yes Soft to palpation and No Tenderness to palpation present (GI) Auscultation: normal bowel sounds Extrem: General: no edema Objective Data Vital Signs Vital Signs: Vital Signs - 24 hr 02/04/23 16:00 02/04/23 16:00 02/04/23 19:45 Temperature
[2023-02-05] MEDS: METOPROLOL TARTRATE INJ 5 MG/5 ML VIAL IV PUSH (15:59)
[2023-02-05] MEDS: RIVAROXABAN 20 MG TABLET PO (16:01)
[2023-02-05 16:57] LABS: Glucose Point of Care 120 mg/dl (65-105)
[2023-02-05] MEDS: METOPROLOL TARTRATE 25 MG TABLET PO (20:54)
[2023-02-05 21:19] LABS: Glucose Point of Care 137 mg/dl (65-105)
[2023-02-06] VITALS (12 sets, daily range): BP systolic 107–115; BP diastolic 62–73; PULSE 102–127; RESP 16–22; TEMP 36.1–36.7; O2SAT 92–93
--- NOTE | 2023-02-06 | ECHO_ITS ---
Patient Info Name: Amanda Schultz Age: 67 years : 1955 Gender: Female Ht: 65 in Wt: 340 lbs BSA: 2.76 m2 HR: 105 bpm BP: 107 / 69 mmHg Heart Rhythm: Atrial Fibrillation Technical Quality: Fair Exam Date: 02/06/2023 9:07 AM Exam Location: [facility] Patient Status: Inpatient Admit Date: 02/05/2023 Staff Ordering Physician: Shahrzad Gil MD Insurance Agency Sales Manager: Oma Christopher RDCS Attending Provider: Linda Jonas DO Exam Type: CA echo dop color flow w con Study Info Indications - afib, rvr Complete two-dimensional, color flow and Doppler transthoracic echocardiogram is performed with contrast to opacify the left ventricle and to improve the deliniation of the left ventricle endocardial borders. Contrast/Agitated Saline Contrast/Ag. Saline: Definity Amount: 2.00 ml Administered By: Oma Christopher RDCS Existing IV Access: Yes IV Access Condition: patent with no signs of infiltration Summary 1. Left ventricular chamber dimension is normal. 2. Left ventricular systolic function is normal, estimated at 65-70%. 3. There is mildly increased left ventricular wall thickness. 4. The left ventricular diastolic function is indeterminate. 5. Right ventricular chamber dimension is mildly enlarged. 6. Left atrial chamber dimension is severely enlarged. 7. Right atrial chamber dimension is severely enlarged. 8. There is mild to moderate aortic valve regurgitation. 9. There is mild aortic valve calcification. 10. There is mild to moderate mitral valve regurgitation. 11. There is moderate to severe tricuspid valve regurgitation. 12. Severe pulmonary hypertension, estimated pulmonary arterial systolic pressure is 79 mmHg. 13. There is mild to moderate pulmonic regurgitation. Left Ventricle Left ventricular chamber dimension is normal. Left ventricular systolic function is normal, estimated at 65-70%. There is mildly increased left ventricular wall thickness. The left ventricular diastolic function is indeterminate. Right Ventricle Right ventricular chamber dimension is mildly enlarged. Right ventricular systolic function is normal. Left Atria Left atrial chamber dimension is severely enlarged. Right Atria Right atrial chamber dimension is severely enlarged. Atrial Septum Intact interatrial septum visualized by color flow imaging. Aortic Valve The aortic valve is trileaflet. There is no aortic valve stenosis. There is mild to moderate aortic valve regurgitation. There is mild aortic valve calcification. Pulmonic Valve The pulmonic valve is normal. There is no pulmonic valve stenosis. There is mild to moderate pulmonic regurgitation. Mitral Valve The mitral valve has thickened leaflets. There is no mitral valve stenosis. There is mild to moderate mitral valve regurgitation. Tricuspid Valve The tricuspid valve leaflets are normal. There is no significant tricuspid valve stenosis. There is moderate to severe tricuspid valve regurgitation. Severe pulmonary hypertension, estimated pulmonary arterial systolic pressure is 79 mmHg. Pericardium/Pleural The pericardium appears normal. There is no pericardial effusion. Inferior Vena Cava Dilated inferior vena cava with <50% collapse upon inspiration consistent with elevated right atrial pressure, 15 mmHg. Aorta The aortic root size at the sinus of Valsalva is normal. Left Ventricular Outflow Tract Name Value Normal
[2023-02-06] MEDS: oxyCODONE HCL (*CRX) 5 MG TAB IR PO ×4 (02:50→15:25)
[2023-02-06 04:18] LABS: Basophils Absolute Auto 0.1 K/mm3 (0.0-0.1); Basophils Percent Auto 2.3 % (0.2-1.2); Eosinophils Absolute Auto 0.1 K/mm3 (0-0.3); Eosinophils Percent Auto 1.8 % (0-4.4); Hematocrit 37.5 % (37.0-47.0); Hemoglobin 11.9 g/dL (12.0-15.0); Immature Granulocyte Absolute 0.03 K/mm3 (0.00-0.031); Immature Granulocyte Percent A 0.8 % (0-0.5); Lymphocytes Absolute Auto 0.95 K/mm3 (0.9-3.2); Lymphocytes Percent Auto 24.2 % (18.3-44.2); Mean Corpuscular HGB Conc 31.7 g/dl (32-36); Mean Corpuscular Hemoglobin 34.7 pg (26-34); Mean Corpuscular Volume 109.3 fl (80-100); Mean Platelet Volume 9.4 fl (7.4-10.4); Monocytes Absolute Auto 0.2 K/mm3 (0.1-0.6); Monocytes Percent Auto 4.8 % (2.6-8.5); Neutrophils Absolute Auto 2.6 K/mm3 (1.3-6.7); Neutrophils Percent Auto 66.1 % (45.5-73.1); Platelet Count Result 262 k/mm3 (150-375); Red Blood Count 3.43 M/mm3 (4.2-5.4); Red Cell Distribution Width 15.8 % (11.5-14.5); White Blood Count 3.9 K/mm3 (4.5-10.0)
[2023-02-06 04:33] LABS: Anion Gap -2 mmol/L (8-16); Blood Urea Nitrogen 19 mg/dL (7-17); Calcium 8.6 mg/dL (8.4-10.2); Carbon Dioxide 39 mmol/L (22-30); Chloride 100 mmol/L (98-107); Estimated CRCL calculation 105 ml/min; Estimated Glomerular Filt Rate > 60; Glucose 113 mg/dL (65-110); Magnesium 1.9 mg/dL (1.6-2.3); Potassium 4.2 mmol/L (3.4-5.0); Sodium 137 mmol/L (137-145)
[2023-02-06 05:02] LABS: Anisocytosis 1+ (NORMAL); Macrocytosis 1+ (NORMAL); Platelet Estimate Adequate (Adequate); Schistocytes None Seen (NORMAL)
[2023-02-06] MEDS: LEVOTHYROXINE SODIUM 88 MCG TABLET PO (07:02)
[2023-02-06] MEDS: PERFLUTREN LIPID MICROSPHERES 1.5 ML VIAL DILUTED TO 10 ML TOTAL VOLUME IV PUSH (09:20)
[2023-02-06] MEDS: ANASTROZOLE (*CHEMO) 1 MG TABLET PO (09:40)
[2023-02-06] MEDS: METOPROLOL TARTRATE 50 MG TAB 100 MG PO (09:40)
[2023-02-06] MEDS: PRAVASTATIN SODIUM 10 MG TABLET PO (09:40)
[2023-02-06] MEDS: METOPROLOL TARTRATE 25 MG TABLET PO ×2 (09:41→12:33)
[2023-02-06] MEDS: PREGABALIN (*CRX) 50 MG CAPSULE 100 MG PO (09:41)
[2023-02-06] MEDS: PANTOPRAZOLE 40 MG TABLET PO (09:41)
[2023-02-06] MEDS: CHOLECALCIFEROL 1,000 UNITS TABLET 2000 UNITS PO (09:41)
[2023-02-06] MEDS: AZITHROMYCIN 500 MG/NS 250 ML 500 MG/250 ML BAG 250 MG IVPB (09:42)
[2023-02-06 10:26] LABS: Glucose Point of Care 114 mg/dl (65-105)
--- NOTE | 2023-02-06 10:32 | IVDEFINITY ---
Prior to administration of IV Definity the patient was educated on the risks and benefits of the imaging enhancing agent including potential adverse side effects. The patient verbalized understanding. Allergies were verified. No exclusion criteria were identified and at least one of the following inclusion criteria were met: 1) physician request, 2) patient technically difficult to image (per the [place] [employer] guidelines of two or more segments not discernable within the apical view), or 3) questionable left ventricular function. ?
--- NOTE | 2023-02-06 13:24 | PM.DS ---
DS: Admitting Diagnosis Discharge Date 02/06/23 Admitting Diagnosis confusion DS: Discharge Diagnosis Discharge Diagnosis (1) Hyperlipidemia: Qualifiers: Hyperlipidemia type: unspecified Qualified Code(s): E78.5 - Hyperlipidemia, unspecified Code(s): E78.5 - Hyperlipidemia, unspecified Status: Acute (2) Type 2 diabetes mellitus with diabetic neuropathy: Qualifiers: Diabetes mellitus termite technician insulin use: without half-way use Qualified Code(s): E11.40 - Type 2 diabetes mellitus with diabetic neuropathy, unspecified Code(s): E11.40 - Type 2 diabetes mellitus with diabetic neuropathy, unspecified Status: Acute (3) CHF (congestive heart failure): Code(s): I50.9 - Heart failure, unspecified Status: Acute (4) Essential (primary) hypertension: Code(s): I10 - Essential (primary) hypertension Status: Acute (5) Atrial fibrillation: Qualifiers: Atrial fibrillation type: unspecified Qualified Code(s): I48.91 - Unspecified atrial fibrillation Code(s): I48.91 - Unspecified atrial fibrillation Status: Acute (6) CKD (chronic kidney disease) stage 3, GFR 30-59 ml/min: Code(s): N18.3 - Chronic kidney disease, stage 3 (moderate) Status: Resolved (7) VENKATA (obstructive sleep apnea): Code(s): G47.33 - Obstructive sleep apnea (adult) (pediatric) Status: Acute (8) Hypoxia: Code(s): R09.02 - Hypoxemia Status: Acute (9) Encephalopathy: Code(s): G93.40 - Encephalopathy, unspecified Status: Acute DS: Summary Hospital Course Hospital Course: 67F w/ PMH a fib on xarelto, HFpEF, HTN, HLD, NIDDM, diabetic neuropathy, hypothyroidism, sleep apnea noncompliant, chronic pain/back pain, morbid obesity, hx of breast ca, L lung adenocarcinoma on chemo presents with AMS. This happened over 1-2 days, she lives alone. Daughter finally concerned and had her brought into the ER. The patient was found to be hypoxic on admission and admitted on 02/04. The patient shortly after admission is back to baseline mentation. She reports no symptoms, she did have vomiting for a day or two on 02/01, and has had wheezing since she had her cancer. She reports some time ago she was placed on oxygen for a short amount of time. She is noncompliant with CPAP, apparently saw a staff occupational therapist and wasn't dx with any other lung conditions. Shortly after admission, a transient course of o2 via NC, and duoneb, the patient was back to breathing on RA and normal mental status. It is unclear, but likely multimodal contribution to her symptoms, including lung cancer, undiagnosed COPD/OHS/VENKATA syndromes vs CAP. she was treat with abx and a few duonebs. she was counseled on the benefits of using her CPAP as she has been non compliant. She also has HFpEf and was given one time dose of lasix. For her a fib, her metoprolol was increased from 100mg po bid to 125mg po bid for better rate control. she tolerated that. she is discharged home in stable condition, and with her multiple comorbidities she knows it is [id number] to follow up with her PCP, oncologist, pulmonology, and dynamic balancer and to be compliant with meds and treatment. she remained full code during her stay. More than 30 minutes spent on discharge planning and documentation. Time Spent with Patient Time attestation: Total time spent providing and/or coordinating discharge services: Exam Const: General: comfortable and no acute distress Other: morbidly obese, pleasant Eyes: Pupils: Equal, round and reactive pupils present Resp: Effort & Inspection: normal respiratory effort Auscultation: clear to auscultation bilaterally and diminished lung sounds Cardio: Rate: regular rate Rhythm: regular rhythm GI: GI Palp: Yes Soft to palpation and No Tenderness to palpation present (GI) Auscultation: normal bowel sounds Extrem: General: no edema DS: Data Data Co
[2023-02-06 18:49] LABS: Glucose Point of Care 158 mg/dl (65-105)
== END 2023-02-06 15:41 | disposition home or self-care (01) | DRG 193 ==
LOC: ANHED 02-04 04:53 → ANHIMU 02-04 05:46
PROVIDERS: Emergency Medicine; Student in an Organized Health Care Education/Training Program; Admitting Provider Internal Medicine; Emergency Provider Physician Assistant; PCP Family Medicine; Visit Provider General Practice
DX: J18.9 Pneumonia, unspecified organism (principal); J96.01 Acute respiratory failure with hypoxia; J96.02 Acute respiratory failure with hypercapnia; I13.0 Hypertensive heart and chronic kidney disease with heart failure and stage 1 through stage 4 chronic kidney disease, or unspecified chronic kidney disease; Z68.43 Body mass index [BMI] 50.0-59.9, adult; C78.02 Secondary malignant neoplasm of left lung; G93.49 Other encephalopathy; E87.4 Mixed disorder of acid-base balance; I50.32 Chronic diastolic (congestive) heart failure; Z20.822 Contact with and (suspected) exposure to COVID-19; I48.91 Unspecified atrial fibrillation; E11.42 Type 2 diabetes mellitus with diabetic polyneuropathy; G47.33 Obstructive sleep apnea (adult) (pediatric); E66.01 Morbid (severe) obesity due to excess calories; E78.5 Hyperlipidemia, unspecified; N18.30 Chronic kidney disease, stage 3 unspecified; E03.9 Hypothyroidism, unspecified; Z85.3 Personal history of malignant neoplasm of breast; Z79.01 Long term (current) use of anticoagulants; Z91.199 Patient's noncompliance with other medical treatment and regimen due to unspecified reason; Z87.891 Personal history of nicotine dependence
CPT/HCPCS: 36415; 70450; 71045; 71275; 74177; 80048; 80053; 80307; 81001; 82140; 82803; 82948; 83605; 83690; 83735; 83880; 84145; 84443; 84484; 85025; 85610; 85730; 87040; 87636; 93005; 94640; 96365; 96366; 96367; 96375; 97161; 99285; A9270; C8929; G0378; J0456; J0696; J1885; J3475; J7030; J7040; Q9957; Q9967

== ENCOUNTER 2023-04-02 13:23 | Inpatient (IN) | payer MEDICARE, MEDICAID, SELFPAY ==
[2023-04-02] VITALS (13 sets, daily range): BP systolic 101–131; BP diastolic 44–83; PULSE 128–152; RESP 18–20; TEMP 35.9–36.8; O2SAT 94–97; BMI 57.8
--- NOTE | ~2023-04-02 | XR_ITS ---
XR hip BI 2V w AP pelvis 04/02/2023 14:17 Indication: Hip pain Procedure: AP pelvis and 2 views each hip Comparison: CT dated 02/04/2023 Findings: No acute fracture. Mild osteoarthritis of the hips. There is a calcified mass inferior to t he right pubis, likely corresponding to calcified right adnexal mass which descends inferiorly in smith nus. Visualized bowel gas pattern nonobstructive. Pelvic rings are intact. Sacral foramen are symmetr ic. Impression: 1: No acute fracture. Reviewed, dictated and finalized at location A. TECHNICIAN Impression: 1: No acute fracture.
--- NOTE | ~2023-04-02 | XR_ITS ---
XR chest 1V 04/02/2023 14:17 Indication: Weakness. Procedure: AP view of the chest Comparison: CT dated 02/04/2023 Findings: There is a left apical mass, suspicious for bronchogenic carcinoma. Cardiomegaly. Mild pulm onary edema. No significant effusion. Impression: 1: Left apical mass, suspicious for bronchogenic carcinoma. 2: Cardiomegaly with mild pulmonary edema. Reviewed, dictated and finalized at location A. ER RAILCAR MECHANIC Impression: 1: Left apical mass, suspicious for bronchogenic carcinoma. 2: Cardiomegaly with mild pulmonary edema.
--- NOTE | 2023-04-02 13:51 | ECG_ITS ---
Measurements Intervals [place] Rate: 140 P: KS: 0 QRS: 80 QRSD: 89 T: 25 QT: 298 QTc: 456 Interpretive Statements ATRIAL FIBRILLATION WITH RAPID VENTRICULAR RESPONSE POSSIBLE RIGHT VENTRICULAR CONDUCTION DELAY [RSR (QR) IN V1/V2] MINIMAL ST DEPRESSION [0.025+ mV ST DEPRESSION] ABNORMAL RHYTHM ECG COMPARED TO ECG 02/03/2023 22:21:40 No significant change Electronically Signed On 04-03-2023 13:36:55 [employer]ECUTIVE [employer] by Elisa Dunlap M.D.
[2023-04-02 14:27] LABS: Basophils Percent Auto 0.3 % (0.2-1.2); Hematocrit 41.7 % (37.0-47.0); Hemoglobin 13.3 g/dL (12.0-15.0); Immature Granulocyte Absolute 0.08 K/mm3 (0.00-0.031); Immature Granulocyte Percent A 0.7 % (0-0.5); Lymphocytes Absolute Auto 0.29 K/mm3 (0.9-3.2); Lymphocytes Percent Auto 2.6 % (18.3-44.2); Mean Corpuscular HGB Conc 31.9 g/dl (32-36); Mean Corpuscular Hemoglobin 35.4 pg (26-34); Mean Corpuscular Volume 110.9 fl (80-100); Monocytes Absolute Auto 0.1 K/mm3 (0.1-0.6); Monocytes Percent Auto 1.3 % (2.6-8.5); Neutrophils Absolute Auto 10.6 K/mm3 (1.3-6.7); Neutrophils Percent Auto 95.1 % (45.5-73.1); Platelet Count Result 204 k/mm3 (150-375); Red Blood Count 3.76 M/mm3 (4.2-5.4); Red Cell Distribution Width 16.8 % (11.5-14.5); White Blood Count 11.2 K/mm3 (4.5-10.0)
--- NOTE | 2023-04-02 14:32 | ED.FALL ---
HPI - Fall General Chief Complaint: Fall Stated Complaint: FALL Time Seen by Provider: 04/02/23 13:30 History of Present Illness HPI Narrative: Patient is a 67-year-old female who presents ER after having a fall at home. Patient reports she was too weak to stand up off of her toilet and slid off. She reports pain to both hips. Unable stand up due to weakness. She did not strike her head or lose consciousness. Patient reports she has missed at least 3 doses of home medication including Lasix and metoprolol. She is not having chest pain nor does she feel as if her heart is racing. She is however in AFib with RVR. Patient's daughter is present and reports patient has difficult to control AFib and feels usually responds better to metoprolol. Patient additionally is also being treated for 2 separate cancers, breast cancer and lung cancer. Related Data Home Medications Medication Instructions Recorded Confirmed pregabalin 100 mg capsule (Lyrica) 100 mg PO BID 11/12/19 02/15/23 anastrozole 1 mg tablet 1 mg PO DAILY 07/02/20 02/15/23 diphenhydramine 25 2 tablet PO QHS PRN Insomnia 12/24/20 02/15/23 mg-acetaminophen 500 mg tablet (Tylenol PM Extra Strength) oxycodone 5 mg capsule 5 mg PO BID PRN Pain 12/24/20 02/15/23 cholecalciferol (vitamin D3) 25 50 mcg PO DAILY 08/09/22 02/15/23 mcg (1,000 unit) capsule albuterol sulfate 90 mcg/actuation 1 inh inhalation DAILY 02/04/23 02/15/23 aerosol inhaler (Ventolin HFA) oxycodone myristate 18 mg capsule 18 mg PO Q12H 02/04/23 02/15/23 sprinkle extended release 12hr(DON'T CRUSH) (Xtampza ER) pantoprazole 40 mg tablet,delayed 40 mg PO DAILY 02/04/23 02/15/23 release prednisone 10 mg tablet 10 mg PO DAILY 02/04/23 02/15/23 rivaroxaban 20 mg tablet (Xarelto) 20 mg PO DAILY 02/04/23 02/15/23 furosemide 20 mg tablet 20 mg PO DAILY 02/15/23 02/15/23 Allergies Allergy/AdvReac Type Severity Reaction Status Date / Time tetracycline Allergy Unknown Vomiting Verified 02/15/23 14:11 Review of Systems Review of Systems: All systems reviewed & are unremarkable except as noted in HPI and below Constitutional: Constitutional: Denies chills, Reports fatigue, Denies fever(s) and Reports weakness ENT: Reports system reviewed and no additional complaints, except as documented Cardiovascular: Cardiovascular: Reports no additional cardiovascular complaints Respiratory: Respiratory: Reports no additional respiratory complaints Gastrointestinal: Gastrointestinal: Reports no additional gastrointestinal complaints Integumentary/Breasts: Skin/Breast: Reports system reviewed and no additional complaints, except as docu [facility] Past Medical History Medical History (Updated 04/02/23 @ 20:17 by Silvestre Rolon MD) Atrial fibrillation CHF (congestive heart failure) follows with cardiology CKD (chronic kidney disease) stage 3, GFR 30-59 ml/min Follows with nephrology Diabetic peripheral neuropathy Enlarged thyroid left lobe Essential (primary) hypertension Hx of breast cancer Right breast, [facility] Infante Hyperlipidemia Hypothyroid Insomnia Lung cancer, upper lobe VENKATA (obstructive sleep apnea) Stress incontinence Type 2 diabetes mellitus with diabetic neuropathy Vitamin D deficiency Surgical History Surgical History History of section History of tonsillectomy Family History Family History Father Family history of lung cancer, Onset Age: 72 Grandparent Family history of malignant neoplasm of breast Other Diabetes mellitus Family history of cardiovascular disease Family history of coronary artery disease Family history of malignant neoplasm of male breast Hypertension Social History Social History Smoking packs per day: 1 Smoking cigarettes per day: 20.0 Years smoked: 35 Smoking
[2023-04-02 14:36] LABS: Lipase 56 U/L (23-300)
[2023-04-02 14:38] LABS: INR 1.9; Partial Thromboplastin Time 37.1 SECONDS (22.3-36.8); Prothrombin Time 23.1 Seconds (11.1-14.7)
[2023-04-02] MEDS: METOPROLOL TARTRATE INJ 5 MG/5 ML VIAL IV PUSH (14:52)
[2023-04-02 15:59] LABS: Glucose Point of Care 176 mg/dl (65-105)
[2023-04-02 16:02] LABS: Alanine Aminotransferase 34 U/L (6-35); Alkaline Phosphatase 53 U/L (38-126); Anion Gap 10 mmol/L (8-16); Aspartate Amino Transferase 86 U/L (14-36); Bilirubin,Total 1.9 mg/dL (0.2-1.3); Blood Urea Nitrogen 47 mg/dL (7-17); Calcium 9.5 mg/dL (8.4-10.2); Carbon Dioxide 29 mmol/L (22-30); Chloride 98 mmol/L (98-107); Estimated CRCL calculation 85 ml/min; Estimated Glomerular Filt Rate > 60; Glucose 165 mg/dL (65-110); Potassium 4.9 mmol/L (3.4-5.0); Sodium 137 mmol/L (137-145)
[2023-04-02] MEDS: FUROSEMIDE INJ 40 MG/4 ML VIAL IV PUSH (16:23)
[2023-04-02] MEDS: dilTIAZem HCl INJ 25 MG/5 ML VIAL 15 MG IV PUSH (16:23)
[2023-04-02 16:38] LABS: Creatine Kinase 1443 U/L (30-135)
[2023-04-02 16:48] LABS: NT Pro B Type Natriuretic Pept 3690 pg/mL (19.9-100)
[2023-04-02] MEDS: dilTIAZem 100 MG/100 ML 100 MG/100 ML BAG IV CONT (17:04)
[2023-04-02 17:12] LABS: Appearance Urine Clear (Clear); Bacteria Urine None Seen /hpf; Bilirubin Urine Negative (Negative); Blood Urine 2+ (Negative); Color Urine Dark Yellow (Yellow); Glucose Urine UA Negative (Negative); Ketones Urine Trace mg/dL (Negative); Leukocyte Esterase Ur Negative LEU/UL (Negative); Need Manual Microscopic Reviewed; Nitrate Urine Negative (Negative); Protein Urine 1+ mg/dL (Negative); RBC Urine 0-2 /hpf (0-2); Specific Grav Ur 1.018 (1.001-1.035); Squamous Epithelial Cell Urine None seen /hpf (Few); WBC Urine 0-5 /hpf
[2023-04-02] MEDS: MORPHINE SULFATE (*CRX) 4 MG/ML INJ IV PUSH (17:16)
[2023-04-02 17:17] LABS: Add Urine Microscopic? YES
--- NOTE | 2023-04-02 19:04 | PM.IMHP ---
H&P: HPI History of Present Illness Date/Time: 04/02/23 19:00 Chief Complaint: Weakness. Narrative: This is a pleasant 67-year-old female with multiple medical problems including paroxysmal atrial fibrillation, diastolic congestive heart failure, chronic kidney disease, hypertension, sleep apnea, type 2 diabetes mellitus, breast cancer, and lung cancer presented to the emergency department via EMS from home for evaluation of weakness. The patient provides the following history. She is currently undergoing chemotherapy per Dr. Infante for lung cancer in what sounds like recurrent breast cancer. Her most recent treatment was last Monday and she seems to be tolerating that pretty well aside from generalized weakness. Yesterday evening she went to the bathroom but was so weak that she cannot get herself up from the toilet and is my understanding that she sat there overnight through this morning until her daughter called 911 after the patient did not answer her phone. Eventually the patient was able to roll herself off of the toilet but she was not able to get herself up. Aside from pain in her buttocks from being on the toilet and mild skin tears, she sustained no significant injuries. On arrival to the emergency department she was found to be in atrial fibrillation with rapid ventricular response though she is not necessarily symptomatic with that. She received an IV bolus of diltiazem and has since been started on a diltiazem drip with minor improvement in her rate. She does not have any significant complaints at this time aside from the fact that she is hungry and thirsty if she has not had anything to eat or drink since yesterday afternoon. She denies fever, chills, sweats, headache, neck ache, sinus congestion, sore throat, cough, chest pain, pleuritic pain, shortness a breath, sensations of racing heart, orthopnea, nausea, vomiting, diarrhea, dysuria, and significant lower extremity edema. Review of Systems Review of Systems: Twelve systems were reviewed and are negative except for as per HPI. [facility] Past Medical History Medical History (Updated 04/02/23 @ 20:25 by Lily Epps PA-C) Atrial fibrillation Cancer of left lung Cancer of right breast Chronic kidney disease Diabetic peripheral neuropathy Enlarged thyroid left lobe Essential (primary) hypertension Heart failure with preserved ejection fraction Hyperlipidemia Hypothyroidism Insomnia Lung cancer, upper lobe Obstructive sleep apnea Pulmonary hypertension Stress incontinence Type 2 diabetes mellitus with diabetic neuropathy Vitamin D deficiency Surgical History Surgical History History of section History of tonsillectomy Family History Family History Father Family history of lung cancer, Onset Age: 72 Grandparent Family history of malignant neoplasm of breast Other Diabetes mellitus Family history of cardiovascular disease Family history of coronary artery disease Family history of malignant neoplasm of male breast Hypertension Social History Social History (Updated 04/02/23 @ 20:20 by Lily Epps PA-C) Social History: Surrogate medical decision maker: Erika Phillips, daughter. Code status: Full code. Smoking packs per day: 1 Smoking cigarettes per day: 20.0 Years smoked: 35 Smoking pack-years: 35.00 Smoking status: Former smoker Alcohol intake: never Substance use: never Substance use type: crack/cocaine Other substance usage details: None since the . Do You Feel Safe in your Home?: Yes Lack of Transportation: YES Lack of Food: Never True Current Housing: I Have Housing Concerned About Future Housing: No Difficulty Paying Gas/Electric Bills: No Difficulty Paying for Meds: No Currently Unemployed: No Education: Decline to Answer Difficulty w/ Childcare or Family
--- NOTE | 2023-04-02 19:37 | PC.NURSE ---
This patient, Amanda Schultz, was admitted to IMU Room 205-01 04/02/23 at 1937. Patient/family oriented to hospital policies and general routines including ID bracelet, bed and alarms, visiting hours, pain management, procedures, bathroom and other care routines, personal items, smoking policy, room service/diet, and visiting hours. Information on how to activate the Rapid Response Team has been discussed. Patient/Family are encouraged to report perceived risks to care and to ask questions if they do not understand what they are told or what they should do.
[2023-04-02] MEDS: SODIUM CHLORIDE 0.9% IV 1,000 ML 100 ML IV CONT (20:34)
[2023-04-02] MEDS: METOPROLOL TARTRATE 50 MG TAB PO (23:00)
[2023-04-03] VITALS (23 sets, daily range): BP systolic 114–133; BP diastolic 51–77; PULSE 107–161; RESP 12–20; TEMP 36–36.6; O2SAT 92–99
[2023-04-03] MEDS: METOPROLOL TARTRATE TAB 25 MG, METOPROLOL TARTRATE TAB 50 MG 75 MG PO (00:12)
[2023-04-03] MEDS: oxyCODONE HCL (*CRX) 5 MG TAB IR PO ×6 (00:13→23:18)
[2023-04-03] MEDS: RIVAROXABAN 20 MG TABLET PO ×2 (00:28→17:04)
--- NOTE | 2023-04-03 02:23 | PC.NURSE ---
Pt wishes for her daughter Erika to be her surrogate decision maker if she is unable to make her own decisions.
[2023-04-03] MEDS: LEVOTHYROXINE SODIUM 88 MCG TABLET PO (04:45)
[2023-04-03 04:56] LABS: Hematocrit 34.9 % (37.0-47.0); Hemoglobin 11.2 g/dL (12.0-15.0); Mean Corpuscular HGB Conc 32.1 g/dl (32-36); Mean Corpuscular Hemoglobin 35.8 pg (26-34); Mean Corpuscular Volume 111.5 fl (80-100); Mean Platelet Volume 9.7 fl (7.4-10.4); Platelet Count Result 182 k/mm3 (150-375); Red Blood Count 3.13 M/mm3 (4.2-5.4); Red Cell Distribution Width 17.1 % (11.5-14.5); White Blood Count 7.1 K/mm3 (4.5-10.0)
[2023-04-03 05:17] LABS: Alanine Aminotransferase 28 U/L (6-35); Albumin Level 3.1 g/dL (3.5-5.1); Alkaline Phosphatase 51 U/L (38-126); Anion Gap 2 mmol/L (8-16); Aspartate Amino Transferase 59 U/L (14-36); Bilirubin,Total 1.3 mg/dL (0.2-1.3); Blood Urea Nitrogen 38 mg/dL (7-17); Calcium 8.9 mg/dL (8.4-10.2); Carbon Dioxide 36 mmol/L (22-30); Chloride 99 mmol/L (98-107); Creatine Kinase 497 U/L (30-135); Estimated CRCL calculation 106 ml/min; Estimated Glomerular Filt Rate > 60; Glucose 144 mg/dL (65-110); Magnesium 1.9 mg/dL (1.6-2.3); Potassium 4.7 mmol/L (3.4-5.0); Sodium 137 mmol/L (137-145)
[2023-04-03] MEDS: SODIUM CHLORIDE 0.9% IV 1,000 ML 100 ML IV CONT ×3 (06:10→23:23)
[2023-04-03] MEDS: PREGABALIN (*CRX) 50 MG CAPSULE 100 MG PO ×2 (08:54→17:04)
[2023-04-03] MEDS: PANTOPRAZOLE 40 MG TABLET PO (08:55)
[2023-04-03] MEDS: PRAVASTATIN SODIUM 10 MG TABLET PO (08:55)
[2023-04-03] MEDS: CHOLECALCIFEROL 1,000 UNITS TABLET 2000 UNITS PO (08:55)
[2023-04-03] MEDS: ANASTROZOLE (*CHEMO) 1 MG TABLET PO (08:57)
[2023-04-03 09:10] LABS: Glucose Point of Care 134 mg/dl (65-105)
[2023-04-03] MEDS: ALBUTEROL SULFATE (*SP) AEROSOL 1 PUFF INHALATION (09:24)
[2023-04-03] MEDS: dilTIAZem 100 MG/100 ML 100 MG/100 ML BAG 10 MG IV CONT ×2 (09:52→19:52)
--- NOTE | 2023-04-03 11:59 | PM.CNCAR ---
Assessment and Plan Assessment and plan (1) Atrial fibrillation with RVR: Code(s): I48.91 - Unspecified atrial fibrillation Status: Acute Assessment and Plan: Patient has persistent atrial fibrillation with a heart rate that has been somewhat difficult to control even with metoprolol tartrate 125 mg b.i.d. at home. Missed a few doses of medications, and admitted with AFib RVR, started on Cardizem drip at 10 milligrams/hour. Her metoprolol has been on hold. Heart rate is still not well controlled. Blood pressure somewhat soft with a systolic BP of around 115 mmHg, but hopefully will improve after hydration. --resume p.o. metoprolol starting at 50 mg q.6 hours so we can follow BP response better. --continue IV Cardizem for now --continue Xarelto 20 mg q.day --may need multidrug therapy (diltiazem? Digoxin? Amiodarone? ) to achieve good HR control. (2) Weakness: Code(s): R53.1 - Weakness Status: Acute Assessment and Plan: Patient with bone pain and weakness a few days after her infusion of her chemo agent, gemcitabine. Has mild rhabdomyolysis. She also appears mildly dehydrated despite her elevated proBNP and I agree with hydration. May need some physical therapy. --continue IV fluids (3) Cancer of left lung: Code(s): C34.92 - Malignant neoplasm of unspecified part of left bronchus or lung Status: Acute Assessment and Plan: On treatment with Gemcitabine for lung cancer. I can not find there is much direct cardiac toxicity with this medication. History of Present Illness History of Present Illness Consult date/time: 04/03/23 11:59 Reason For Visit: Afib RVR,Rhabdomyolysis,CHF Exacerbation Narrative: Amanda Schultz is a 67-year-old female whom I was asked to see at the request of Dr. Orlando for my advice and opinion regarding her AFib RVR, in consultation. She has persistent atrial fibrillation, and was diagnosed with lung cancer earlier this year. She was hospitalized 02/05/2023 at [facility] with altered mental status and hypoxia, AFib RVR, at which time her metoprolol was increased to 125 mg b.i.d.. Echo showed EF 65-70%, [id number] aortic insufficiency and mitral regurgitation, moderate to severe tricuspid regurgitation with a estimated RV systolic pressure of 79 mmHg. The patient follows with Dr. Alvarez for her persistent atrial fibrillation. When last seen on February 27, 2023, her heart rate tended to be mildly elevated and she was continued on metoprolol tartrate 125 mg b.i.d.. Her blood pressure was 110/72 with a pulse of 109 that day. She is getting treatments with gemcitabine for lung cancer, last infusion was 03/29/23. She started feeling bone pain and on Monday night she was unable to get off the toilet. She was admitted Monday04/02/2023 after being too weak to stand. She was found to be in AFib RVR. She had missed a day or 2 of medications. Her BUN was up to 47 (baseline in the 20s). She has been treated for mild rhabdomyolysis with IV fluids at 100 cc an hour and has been started on Cardizem drip 10 milligrams/hour. Heart rate is still running in the 120s. ProBNP 3700, CPK 1400 04/02/2023 EKG at 2:30 p.m.: AFib RVR rate 140, minimal ST-segment changes, personally reviewed Chest x-ray yesterday: 1: Left apical mass, suspicious for bronchogenic carcinoma. 2: Cardiomegaly with mild pulmonary edema. Personally reviewed Review of Systems Constitutional: Constitutional: Denies fever(s) Eyes: Eyes: Reports no additional eye complaints ENT: Denies epistaxis Cardiovascular: Cardiovascular: Denies chest pain, Denies pedal edema, Denies lightheadedness and Denies dyspnea Respiratory: Respiratory: Denies chest congestion, Denies cough and Denies dyspnea Comments: States she was diagnosed with sleep apnea, tried CPAP for a while but could not tolerate it. Gastrointestinal: Gastrointestinal: Denies abdominal pain and
[2023-04-03 12:04] LABS: Glucose Point of Care 126 mg/dl (65-105)
[2023-04-03 12:23] LABS: Glucose Point of Care 146 mg/dl (65-105)
[2023-04-03] MEDS: METOPROLOL TARTRATE 50 MG TAB PO ×2 (13:22→18:26)
[2023-04-03 16:19] LABS: Glucose Point of Care 159 mg/dl (65-105)
--- NOTE | 2023-04-03 18:12 | PM.IMPN ---
Progress Note: A&P Assessment and Plan (1) Weakness: Code(s): R53.1 - Weakness Status: Acute (2) Cancer of left lung: Code(s): C34.92 - Malignant neoplasm of unspecified part of left bronchus or lung Status: Acute (3) Cancer of right breast: Code(s): C50.911 - Malignant neoplasm of unspecified site of right female breast Status: Acute (4) Chronic kidney disease: Code(s): N18.9 - Chronic kidney disease, unspecified Status: Acute (5) Hypothyroidism: Code(s): E03.9 - Hypothyroidism, unspecified Status: Acute (6) Obstructive sleep apnea: Code(s): G47.33 - Obstructive sleep apnea (adult) (pediatric) Status: Acute (7) Pulmonary hypertension: Code(s): I27.20 - Pulmonary hypertension, unspecified Status: Acute (8) Heart failure with preserved ejection fraction: Code(s): I50.30 - Unspecified diastolic (congestive) heart failure Status: Acute (9) Atrial fibrillation with rapid ventricular response: Code(s): I48.91 - Unspecified atrial fibrillation Status: Acute (10) CHF exacerbation: Code(s): I50.9 - Heart failure, unspecified Status: Acute (11) Rhabdomyolysis: Code(s): M62.82 - Rhabdomyolysis Status: Acute (12) Stress incontinence: Code(s): N39.3 - Stress incontinence (female) (male) Status: Acute (13) Hypothyroid: Qualifiers: Hypothyroidism type: acquired Qualified Code(s): E03.9 - Hypothyroidism, unspecified Code(s): E03.9 - Hypothyroidism, unspecified Status: Acute (14) Hyperlipidemia: Qualifiers: Hyperlipidemia type: unspecified Qualified Code(s): E78.5 - Hyperlipidemia, unspecified Code(s): E78.5 - Hyperlipidemia, unspecified Status: Acute (15) Type 2 diabetes mellitus with diabetic neuropathy: Qualifiers: Diabetes mellitus snf insulin use: without supervisor intermediates use Qualified Code(s): E11.40 - Type 2 diabetes mellitus with diabetic neuropathy, unspecified Code(s): E11.40 - Type 2 diabetes mellitus with diabetic neuropathy, unspecified Status: Acute (16) Diabetic peripheral neuropathy: Code(s): E11.42 - Type 2 diabetes mellitus with diabetic polyneuropathy Status: Acute (17) Essential (primary) hypertension: Code(s): I10 - Essential (primary) hypertension Status: Acute (18) CKD (chronic kidney disease) stage 3, GFR 30-59 ml/min: Code(s): N18.3 - Chronic kidney disease, stage 3 (moderate) Status: Resolved (19) Vitamin D deficiency: Code(s): E55.9 - Vitamin D deficiency, unspecified Status: Acute (20) Insomnia: Code(s): G47.00 - Insomnia, unspecified Status: Acute (21) Urge incontinence of urine: Code(s): N39.41 - Urge incontinence Status: Acute Assessment and Plan: Continue with current medications Continue with cardiopulmonary monitoring Oxygen via nasal cannula to keep O2 sats around 94% Wean off oxygen as tolerated Continue with IV Cardizem for AFib with RVR to keep heart rate of 100 Continue with oral metoprolol, dose adjusted by Cardiology Follow-up closely as per Cardiology Continue with the gentle hydration Monitor CPK level closely as patient developed rhabdomyolysis by sitting on the toilet overnight Continue with the pain meds p.r.n. as needed PT/OT evaluation ordered ? Patient seen and examined at bedside during my morning rounds ? Collaborated with patient's nurse at the bedside in detail and addressed all concerns ? Labs, electrolytes, radiology, investigations and test results reviewed ? Consult/Nursing/Ancilliary notes on the chart reviewed and appreciated ? Spoke with patient/family at the bedside and answered all the questions that they had Repeat labs in a.m. Electrolyte replacement as per protocol. Patient will be monitored very closely on the floor. Further recommendation
[2023-04-03 20:04] LABS: Glucose Point of Care 175 mg/dl (65-105)
[2023-04-03] MEDS: traZODone HCL 25 MG TABLET PO (23:19)
[2023-04-04] VITALS (22 sets, daily range): BP systolic 102–117; BP diastolic 57–66; PULSE 89–110; RESP 12–20; TEMP 36.6–36.9; O2SAT 90–99
[2023-04-04] MEDS: METOPROLOL TARTRATE 50 MG TAB PO ×4 (01:20→19:03)
[2023-04-04] MEDS: oxyCODONE HCL (*CRX) 5 MG TAB IR PO ×4 (03:20→22:05)
[2023-04-04] MEDS: LEVOTHYROXINE SODIUM 88 MCG TABLET PO (05:37)
[2023-04-04] MEDS: dilTIAZem 100 MG/100 ML 100 MG/100 ML BAG 10 MG IV CONT (05:41)
[2023-04-04 06:20] LABS: Basophils Absolute Auto 0.1 K/mm3 (0.0-0.1); Eosinophils Percent Auto 0.7 % (0-4.4); Hematocrit 33.5 % (37.0-47.0); Hemoglobin 10.3 g/dL (12.0-15.0); Immature Granulocyte Absolute 0.03 K/mm3 (0.00-0.031); Lymphocytes Absolute Auto 0.67 K/mm3 (0.9-3.2); Lymphocytes Percent Auto 22.3 % (18.3-44.2); Mean Corpuscular HGB Conc 30.7 g/dl (32-36); Mean Corpuscular Hemoglobin 35.5 pg (26-34); Mean Corpuscular Volume 115.5 fl (80-100); Mean Platelet Volume 9.7 fl (7.4-10.4); Monocytes Absolute Auto 0.2 K/mm3 (0.1-0.6); Monocytes Percent Auto 7.6 % (2.6-8.5); Neutrophils Percent Auto 66.4 % (45.5-73.1); Nucleated Red Blood Cells Perc 1.3 % (0.0-0.2); Platelet Count Result 148 k/mm3 (150-375)
[2023-04-04 06:30] LABS: Anion Gap 4 mmol/L (8-16); Blood Urea Nitrogen 28 mg/dL (7-17); Calcium 8.9 mg/dL (8.4-10.2); Carbon Dioxide 34 mmol/L (22-30); Chloride 100 mmol/L (98-107); Creatine Kinase 260 U/L (30-135); Estimated CRCL calculation 106 ml/min; Estimated Glomerular Filt Rate > 60; Glucose 139 mg/dL (65-110); Phosphorus 2.6 mg/dL (2.5-4.5); Potassium 4.2 mmol/L (3.4-5.0); Sodium 138 mmol/L (137-145)
[2023-04-04] MEDS: SODIUM CHLORIDE 0.9% IV 1,000 ML 100 ML IV CONT ×2 (06:43→09:18)
[2023-04-04 07:03] LABS: Anisocytosis 2+ (NORMAL); Hypochromasia 2+ (NORMAL); Ovalocytes 2+ (NORMAL); Platelet Estimate Adequate (Adequate); Schistocytes None Seen (NORMAL)
[2023-04-04 07:55] LABS: Glucose Point of Care 125 mg/dl (65-105)
[2023-04-04] MEDS: ALBUTEROL SULFATE (*SP) AEROSOL 1 PUFF INHALATION (08:29)
[2023-04-04] MEDS: PRAVASTATIN SODIUM 10 MG TABLET PO (09:12)
[2023-04-04] MEDS: PREGABALIN (*CRX) 50 MG CAPSULE 100 MG PO ×2 (09:12→16:48)
[2023-04-04] MEDS: ANASTROZOLE (*CHEMO) 1 MG TABLET PO (09:13)
[2023-04-04] MEDS: CHOLECALCIFEROL 1,000 UNITS TABLET 2000 UNITS PO (09:13)
[2023-04-04] MEDS: PANTOPRAZOLE 40 MG TABLET PO (09:13)
[2023-04-04] MEDS: FUROSEMIDE 20 MG TABLET BY MOUTH (10:30)
[2023-04-04] MEDS: LORazepam INJ (*CRX) 2 MG/ML VIAL 1 MG IV PUSH (11:26)
[2023-04-04 11:44] LABS: Glucose Point of Care 152 mg/dl (65-105)
--- NOTE | 2023-04-04 13:49 | PM.PNCARD ---
Progress Note: A&P Assessment and Plan (1) Atrial fibrillation with rapid ventricular response: Code(s): I48.91 - Unspecified atrial fibrillation Status: Acute Assessment and Plan: Patient has persistent atrial fibrillation with a heart rate that has been somewhat difficult to control even with metoprolol tartrate 125 mg BID at home.? Missed a few doses of medications, and admitted with AFib RVR, started on Cardizem drip at 10 milligrams/hour.? Her metoprolol has been on hold. Started on Metoprolol 50mg Q6H this admission. Currently rate controlled on Diltiazem drip + PO Metoprolol. --Continue Metoprolol 50 mg q.6 hours --Wean down Cardizem drip to 5mg. Will start PO Cardizem 180mg QD. --continue Xarelto 20 mg q.day (2) Weakness: Code(s): R53.1 - Weakness Status: Acute Assessment and Plan: Patient with bone pain and weakness a few days after her infusion of her chemo agent, gemcitabine.? Has mild rhabdomyolysis.? She also appears mildly dehydrated despite her elevated proBNP and I agree with hydration.? May need some physical therapy. (3) Cancer of left lung: Code(s): C34.92 - Malignant neoplasm of unspecified part of left bronchus or lung Status: Acute Assessment and Plan: On treatment with Gemcitabine for lung cancer.? I can not find there is much direct cardiac toxicity with this medication. Subjective Date/time seen: 04/04/23 13:49 Interval history: Reason for visit: Atrial fibrillation with RVR HPI: Amanda Schultz is a 67-year-old female whom I was asked to see at the request of Dr. Orlando for my advice and opinion regarding her AFib RVR, in consultation.? She has persistent atrial fibrillation, and was diagnosed with lung cancer earlier this year.? ? She was hospitalized 02/05/2023 at [facility] with altered mental status and hypoxia, AFib RVR, at which time her metoprolol was increased to 125 mg b.i.d..? Echo showed EF 65-70%, [id number] aortic insufficiency and mitral regurgitation, moderate to severe tricuspid regurgitation with a estimated RV systolic pressure of 79 mmHg. The patient follows with Dr. Alvarez for her persistent atrial fibrillation.? When last seen on February 27, 2023, her heart rate tended to be mildly elevated and she was continued on metoprolol tartrate 125 mg b.i.d..? Her blood pressure was 110/72 with a pulse of 109 that day.?She is getting treatments with gemcitabine for lung cancer,?last infusion was 03/29/23.? She started feeling bone pain and on Monday night she was unable to get off the toilet.? She was admitted Monday04/02/2023 after being too weak to stand.? She was found to be in AFib RVR.? She had missed a day or 2 of medications.? Her BUN was up to 47 (baseline in the 20s).? She has been treated for mild rhabdomyolysis with IV fluids at 100 cc an hour and has been started on Cardizem drip 10 milligrams/hour.? Heart rate is still running in the 120s. Date of service 04/04: Rate controlled on Diltiazem drip at 10mg. Patient sleepy this afternoon upon my examination, but she had just gotten Ativan right before. Review of Systems Review of Systems: No chest pain, palpitations. Limited ROS due to mental status. Exam Const: General: no acute distress Other: Morbidly obese female Eyes: General: appearance normal, both eyes and all related structures Sclera: sclerae normal Resp: Effort & Inspection: normal respiratory effort Cardio: Rhythm: abnormal rhythm irregularly irregular Skin: General skin exam: normal color Psych: Mental Status: mental status grossly normal Affect: normal affect Objective Data Vital Signs Vital Signs: Vital Signs - 24 hr 04/03/23 14:00 04/03/23 16:00 04/03/23 16:00 Temperature 36.6 C Pulse Rate 120 H 107 H Respiratory Rate 18 Blood Pressure 115/68 Pulse Oximetry 99 99 Oxygen Delivery Nasal Cannula Oxygen Flow Rate 2 04/03/23 18:26 04/03/23 16:00 04/03/23 18
[2023-04-04] MEDS: dilTIAZem 100 MG/100 ML 100 MG/100 ML BAG IV CONT (13:50)
--- NOTE | 2023-04-04 13:51 | PCPTNOTE ---
attempted PT eval, pt eating lunch at the time and said to come back later
[2023-04-04] MEDS: dilTIAZem HCL CD 180 MG CAP.24HR PO (15:20)
[2023-04-04 17:01] LABS: Glucose Point of Care 146 mg/dl (65-105)
[2023-04-04] MEDS: RIVAROXABAN 20 MG TABLET PO (17:04)
--- NOTE | 2023-04-04 18:37 | PM.IMPN ---
Progress Note: A&P Assessment and Plan (1) Weakness: Code(s): R53.1 - Weakness Status: Acute (2) Cancer of left lung: Code(s): C34.92 - Malignant neoplasm of unspecified part of left bronchus or lung Status: Acute (3) Cancer of right breast: Code(s): C50.911 - Malignant neoplasm of unspecified site of right female breast Status: Acute (4) Chronic kidney disease: Code(s): N18.9 - Chronic kidney disease, unspecified Status: Acute (5) Hypothyroidism: Code(s): E03.9 - Hypothyroidism, unspecified Status: Acute (6) Obstructive sleep apnea: Code(s): G47.33 - Obstructive sleep apnea (adult) (pediatric) Status: Acute (7) Pulmonary hypertension: Code(s): I27.20 - Pulmonary hypertension, unspecified Status: Acute (8) Heart failure with preserved ejection fraction: Code(s): I50.30 - Unspecified diastolic (congestive) heart failure Status: Acute (9) Atrial fibrillation with rapid ventricular response: Code(s): I48.91 - Unspecified atrial fibrillation Status: Acute (10) CHF exacerbation: Code(s): I50.9 - Heart failure, unspecified Status: Acute (11) Rhabdomyolysis: Code(s): M62.82 - Rhabdomyolysis Status: Acute (12) Stress incontinence: Code(s): N39.3 - Stress incontinence (female) (male) Status: Acute (13) Hyperlipidemia: Qualifiers: Hyperlipidemia type: unspecified Qualified Code(s): E78.5 - Hyperlipidemia, unspecified Code(s): E78.5 - Hyperlipidemia, unspecified Status: Acute (14) Type 2 diabetes mellitus with diabetic neuropathy: Qualifiers: Diabetes mellitus ocean transportation intermediary insulin use: without correction use Qualified Code(s): E11.40 - Type 2 diabetes mellitus with diabetic neuropathy, unspecified Code(s): E11.40 - Type 2 diabetes mellitus with diabetic neuropathy, unspecified Status: Acute (15) Diabetic peripheral neuropathy: Code(s): E11.42 - Type 2 diabetes mellitus with diabetic polyneuropathy Status: Acute (16) Essential (primary) hypertension: Code(s): I10 - Essential (primary) hypertension Status: Acute (17) CKD (chronic kidney disease) stage 3, GFR 30-59 ml/min: Code(s): N18.3 - Chronic kidney disease, stage 3 (moderate) Status: Resolved (18) Vitamin D deficiency: Code(s): E55.9 - Vitamin D deficiency, unspecified Status: Acute (19) Insomnia: Code(s): G47.00 - Insomnia, unspecified Status: Acute (20) Urge incontinence of urine: Code(s): N39.41 - Urge incontinence Status: Acute Assessment and Plan: Continue with current medications Continue with cardiopulmonary monitoring Oxygen via nasal cannula to keep O2 sats around 94% Wean off oxygen as tolerated Continue with IV Cardizem for AFib with RVR to keep heart rate of 100; DC when heart rate is stable Continue with oral metoprolol, dose adjusted by Cardiology Follow-up closely as per Cardiology DC IV hydration, patient is now eating and drinking Monitor CPK level closely as patient developed rhabdomyolysis by sitting on the toilet overnight, trending down from [id number] today Continue with the pain meds p.r.n. as needed PT/OT evaluation ordered She would need shelter facility placement to get stronger before she can go back home Care coordination consult for DCplanning ? Patient seen and examined at bedside during my morning rounds ? Collaborated with patient's nurse at the bedside in detail and addressed all concerns ? Labs, electrolytes, radiology, investigations and test results reviewed ? Consult/Nursing/Ancilliary notes on the chart reviewed and appreciated ? Spoke with patient/family at the bedside and answered all the questions that they had Repeat labs in a.m. Electrolyte replacement as per protocol. Patient will be monitored very closely on the floor. Further recom
[2023-04-04 20:53] LABS: Glucose Point of Care 139 mg/dl (65-105)
[2023-04-04] MEDS: traZODone HCL 25 MG TABLET PO (22:15)
[2023-04-05] VITALS (14 sets, daily range): BP systolic 99–120; BP diastolic 53–61; PULSE 86–109; RESP 16–24; TEMP 36.6–36.8; O2SAT 91–95; BMI 10.0
[2023-04-05] MEDS: METOPROLOL TARTRATE 50 MG TAB PO ×3 (01:59→12:33)
[2023-04-05] MEDS: oxyCODONE HCL (*CRX) 5 MG TAB IR PO ×4 (02:04→14:59)
[2023-04-05 05:09] LABS: Basophils Absolute Auto 0.1 K/mm3 (0.0-0.1); Basophils Percent Auto 2.2 % (0.2-1.2); Eosinophils Percent Auto 0.6 % (0-4.4); Hematocrit 34.8 % (37.0-47.0); Hemoglobin 10.7 g/dL (12.0-15.0); Immature Granulocyte Absolute 0.06 K/mm3 (0.00-0.031); Immature Granulocyte Percent A 1.9 % (0-0.5); Lymphocytes Absolute Auto 0.71 K/mm3 (0.9-3.2); Lymphocytes Percent Auto 22.8 % (18.3-44.2); Mean Corpuscular HGB Conc 30.7 g/dl (32-36); Mean Corpuscular Hemoglobin 35.4 pg (26-34); Mean Corpuscular Volume 115.2 fl (80-100); Mean Platelet Volume 9.6 fl (7.4-10.4); Monocytes Absolute Auto 0.5 K/mm3 (0.1-0.6); Monocytes Percent Auto 17.3 % (2.6-8.5); Neutrophils Absolute Auto 1.7 K/mm3 (1.3-6.7); Neutrophils Percent Auto 55.2 % (45.5-73.1); Nucleated Red Blood Cells Absolute Auto 0.1 K/mm3 (0.0-0.012); Nucleated Red Blood Cells Perc 2.6 % (0.0-0.2); Platelet Count Result 136 k/mm3 (150-375); Red Blood Count 3.02 M/mm3 (4.2-5.4); Red Cell Distribution Width 16.7 % (11.5-14.5); White Blood Count 3.1 K/mm3 (4.5-10.0)
[2023-04-05 05:20] LABS: Anion Gap 4 mmol/L (8-16); Blood Urea Nitrogen 21 mg/dL (7-17); Calcium 8.9 mg/dL (8.4-10.2); Carbon Dioxide 34 mmol/L (22-30); Chloride 101 mmol/L (98-107); Creatine Kinase 179 U/L (30-135); Estimated CRCL calculation 106 ml/min; Estimated Glomerular Filt Rate > 60; Glucose 139 mg/dL (65-110); Potassium 3.8 mmol/L (3.4-5.0); Sodium 139 mmol/L (137-145)
[2023-04-05] MEDS: LEVOTHYROXINE SODIUM 88 MCG TABLET PO (06:08)
[2023-04-05 07:30] LABS: Glucose Point of Care 141 mg/dl (65-105)
[2023-04-05] MEDS: ALBUTEROL SULFATE (*SP) AEROSOL 1 PUFF INHALATION (08:33)
[2023-04-05] MEDS: ANASTROZOLE (*CHEMO) 1 MG TABLET PO (09:06)
[2023-04-05] MEDS: PRAVASTATIN SODIUM 10 MG TABLET PO (09:06)
[2023-04-05] MEDS: PREGABALIN (*CRX) 50 MG CAPSULE 100 MG PO (09:06)
[2023-04-05] MEDS: CHOLECALCIFEROL 1,000 UNITS TABLET 2000 UNITS PO (09:06)
[2023-04-05] MEDS: dilTIAZem HCL CD 180 MG CAP.24HR PO (09:06)
[2023-04-05] MEDS: PANTOPRAZOLE 40 MG TABLET PO (09:06)
--- NOTE | 2023-04-05 11:10 | PM.PNCARD ---
Progress Note: A&P Assessment and Plan (1) Atrial fibrillation with rapid ventricular response: Code(s): I48.91 - Unspecified atrial fibrillation Status: Acute Assessment and Plan: Patient has persistent atrial fibrillation with a heart rate that has been somewhat difficult to control even with metoprolol tartrate 125 mg BID at home.? Missed a few doses of medications, and admitted with AFib RVR, started on Cardizem drip at 10 milligrams/hour.? Her metoprolol has been on hold. Started on Metoprolol 50mg Q6H this admission. Currently rate controlled on Diltiazem drip + PO Metoprolol. --Continue Metoprolol 50 mg q.6 hours --Wean down Cardizem drip to 5mg. Will start PO Cardizem 180mg QD. --continue Xarelto 20 mg q.day (2) Weakness: Code(s): R53.1 - Weakness Status: Acute Assessment and Plan: Patient with bone pain and weakness a few days after her infusion of her chemo agent, gemcitabine.? Has mild rhabdomyolysis.? Rec'd IV fluid hydration. May need some physical therapy. (3) Cancer of left lung: Code(s): C34.92 - Malignant neoplasm of unspecified part of left bronchus or lung Status: Acute Assessment and Plan: On treatment with Gemcitabine for lung cancer.? I can not find there is much direct cardiac toxicity with this medication. Subjective Date/time seen: 04/05/23 11:10 Interval history: Reason for visit: Atrial fibrillation with RVR HPI: Amanda Schultz is a 67-year-old female whom I was asked to see at the request of Dr. Orlando for my advice and opinion regarding her AFib RVR, in consultation.? She has persistent atrial fibrillation, and was diagnosed with lung cancer earlier this year.? ? She was hospitalized 02/05/2023 at [facility] with altered mental status and hypoxia, AFib RVR, at which time her metoprolol was increased to 125 mg b.i.d..? Echo showed EF 65-70%, [id number] aortic insufficiency and mitral regurgitation, moderate to severe tricuspid regurgitation with a estimated RV systolic pressure of 79 mmHg. The patient follows with Dr. Alvarez for her persistent atrial fibrillation.? When last seen on February 27, 2023, her heart rate tended to be mildly elevated and she was continued on metoprolol tartrate 125 mg b.i.d..? Her blood pressure was 110/72 with a pulse of 109 that day.?She is getting treatments with gemcitabine for lung cancer,?last infusion was 03/29/23.? She started feeling bone pain and on Monday night she was unable to get off the toilet.? She was admitted Monday04/02/2023 after being too weak to stand.? She was found to be in AFib RVR.? She had missed a day or 2 of medications.? Her BUN was up to 47 (baseline in the 20s).? She has been treated for mild rhabdomyolysis with IV fluids at 100 cc an hour and has been started on Cardizem drip 10 milligrams/hour.? Heart rate is still running in the 120s. Date of service 04/04: Rate controlled on Diltiazem drip at 10mg. Patient sleepy this afternoon upon my examination, but she had just gotten Ativan right before. Date of service 04/05/23: She has been transitioned to p.o. diltiazem and remains rate controlled. She doesn't have any complaints. Review of Systems Review of Systems: No chest pain, palpitations. Limited ROS due to mental status. Constitutional: Constitutional: Denies fever(s) Eyes: Eyes: Reports no additional eye complaints ENT: Denies epistaxis Cardiovascular: Cardiovascular: Denies chest pain, Denies pedal edema, Denies lightheadedness and Denies dyspnea Respiratory: Respiratory: Denies chest congestion, Denies cough and Denies dyspnea Gastrointestinal: Gastrointestinal: Denies abdominal pain and Denies hematochezia Genitourinary: Genitourinary: Denies hematuria Integumentary/Breasts: Skin/Breast: Reports system reviewed and no additional complaints, except as docu Neurologic: Reports system reviewed and no additional complaints, except as documented, Denies behavioral
[2023-04-05 11:19] LABS: Glucose Point of Care 184 mg/dl (65-105)
--- NOTE | 2023-04-05 14:20 | PM.DS ---
DS: Admitting Diagnosis Discharge Date 04/05/2023: Admitting Diagnosis Atrial fibrillation with RVR Rhabdomyolysis DS: Discharge Diagnosis Discharge Diagnosis (1) Weakness: Code(s): R53.1 - Weakness Status: Acute (2) Cancer of left lung: Code(s): C34.92 - Malignant neoplasm of unspecified part of left bronchus or lung Status: Acute (3) Cancer of right breast: Code(s): C50.911 - Malignant neoplasm of unspecified site of right female breast Status: Acute (4) Chronic kidney disease: Code(s): N18.9 - Chronic kidney disease, unspecified Status: Acute (5) Hypothyroidism: Code(s): E03.9 - Hypothyroidism, unspecified Status: Acute (6) Obstructive sleep apnea: Code(s): G47.33 - Obstructive sleep apnea (adult) (pediatric) Status: Acute (7) Pulmonary hypertension: Code(s): I27.20 - Pulmonary hypertension, unspecified Status: Acute (8) Heart failure with preserved ejection fraction: Code(s): I50.30 - Unspecified diastolic (congestive) heart failure Status: Acute (9) Atrial fibrillation with rapid ventricular response: Code(s): I48.91 - Unspecified atrial fibrillation Status: Acute (10) Rhabdomyolysis: Code(s): M62.82 - Rhabdomyolysis Status: Acute (11) Stress incontinence: Code(s): N39.3 - Stress incontinence (female) (male) Status: Acute (12) Hypothyroid: Qualifiers: Hypothyroidism type: acquired Qualified Code(s): E03.9 - Hypothyroidism, unspecified Code(s): E03.9 - Hypothyroidism, unspecified Status: Acute (13) Hyperlipidemia: Qualifiers: Hyperlipidemia type: unspecified Qualified Code(s): E78.5 - Hyperlipidemia, unspecified Code(s): E78.5 - Hyperlipidemia, unspecified Status: Acute (14) Diabetic peripheral neuropathy: Code(s): E11.42 - Type 2 diabetes mellitus with diabetic polyneuropathy Status: Acute (15) Essential (primary) hypertension: Code(s): I10 - Essential (primary) hypertension Status: Acute (16) Atrial fibrillation: Qualifiers: Atrial fibrillation type: unspecified Qualified Code(s): I48.91 - Unspecified atrial fibrillation Code(s): I48.91 - Unspecified atrial fibrillation Status: Acute (17) CKD (chronic kidney disease) stage 3, GFR 30-59 ml/min: Code(s): N18.3 - Chronic kidney disease, stage 3 (moderate) Status: Resolved (18) VENKATA (obstructive sleep apnea): Code(s): G47.33 - Obstructive sleep apnea (adult) (pediatric) Status: Acute (19) Vitamin D deficiency: Code(s): E55.9 - Vitamin D deficiency, unspecified Status: Acute (20) Urge incontinence of urine: Code(s): N39.41 - Urge incontinence Status: Acute DS: Summary Hospital Course Reason for hospitalization: Patient admitted with generalized weakness and difficulty ambulating. Workup was done which showed AFib RVR and rhabdomyolysis Hospital Course: H&P: HPI History of Present Illness Date/Time: 04/02/23? 19:00 Chief Complaint: Weakness. Narrative: This is a pleasant 67-year-old female with multiple medical problems including paroxysmal atrial fibrillation, diastolic congestive heart failure, chronic kidney disease, hypertension, sleep apnea, type 2 diabetes mellitus, breast cancer, and lung cancer presented to the emergency department via EMS from home for evaluation of weakness. The patient provides the following history. She is currently undergoing chemotherapy per Dr. Infante for lung cancer in what sounds like recurrent breast cancer. Her most recent treatment was last Monday and she seems to be tolerating that pretty well aside from generalized weakness. Yesterday evening she went to the bathroom but was so weak that she cannot get herself up from the toilet and is my understanding that she sat there overnight through this morning until her
== END 2023-04-05 14:34 | DRG 309 ==
LOC: ANHED 14:38 → ANHIMU 20:17 → ANH2MED 04-06 09:27
PROVIDERS: Physician Assistant; Admitting Provider Family Medicine; Emergency Provider Emergency Medicine; PCP Family Medicine; Visit Provider Family Medicine
DX: I48.19 Other persistent atrial fibrillation (principal); C34.92 Malignant neoplasm of unspecified part of left bronchus or lung; I13.0 Hypertensive heart and chronic kidney disease with heart failure and stage 1 through stage 4 chronic kidney disease, or unspecified chronic kidney disease; I50.32 Chronic diastolic (congestive) heart failure; M62.82 Rhabdomyolysis; Z68.43 Body mass index [BMI] 50.0-59.9, adult; C50.911 Malignant neoplasm of unspecified site of right female breast; E86.0 Dehydration; Z23 Encounter for immunization; W18.11XA Fall from or off toilet without subsequent striking against object, initial encounter; Z91.148 Patient's other noncompliance with medication regimen for other reason; E11.22 Type 2 diabetes mellitus with diabetic chronic kidney disease; E11.42 Type 2 diabetes mellitus with diabetic polyneuropathy; N18.30 Chronic kidney disease, stage 3 unspecified; E78.5 Hyperlipidemia, unspecified; E03.9 Hypothyroidism, unspecified; G47.33 Obstructive sleep apnea (adult) (pediatric); N39.3 Stress incontinence (female) (male); S30.0XXA Contusion of lower back and pelvis, initial encounter; E66.01 Morbid (severe) obesity due to excess calories; E55.9 Vitamin D deficiency, unspecified; G47.00 Insomnia, unspecified; Z87.891 Personal history of nicotine dependence
CPT/HCPCS: 36415; 71045; 73521; 80048; 80053; 81001; 82550; 82607; 82746; 82948; 83690; 83735; 83880; 84100; 84443; 85025; 85027; 85610; 85730; 90471; 90694; 93005; 94640; 96365; 96366; 96375; 97161; 97166; 97535; 99285; A9270; G0008; G0378; J1940; J2060; J2270; J7030

== ENCOUNTER 2023-04-09 11:38 | Inpatient (IN) | payer MEDICARE, MEDICAID, SELFPAY ==
[2023-04-09] VITALS (28 sets, daily range): BP systolic 115–144; BP diastolic 66–91; PULSE 93–109; RESP 14–25; TEMP 36.9–37.9; O2SAT 93–100; BMI 62.4
--- NOTE | ~2023-04-09 | XR_ITS ---
EXAMINATION: XR chest 1V portable DATE: 04/10/2023 05:29 INDICATION: Intubated. TECHNIQUE: A single frontal view of the chest was obtained. COMPARISON: Chest single view 04/09/2023, chest CT 04/09/2023 FINDINGS: The patient is rotated to her left. There is a mass in left upper lobe. There is a nodule i n right upper lobe. There are airspace opacities in right perihilar region and at the lung bases. The re are moderate-sized pleural effusions. No pneumothorax. Cardiomegaly is noted. The endotracheal tub e tip is 3.0 cm above the andreea. The nasogastric tube tip is beyond the inferior margin of the radio graph, but at least to the stomach. A left upper extremity peripherally inserted central venous kris ter (PICC) is seen with tip in the superior vena cava. IMPRESSION: 1. Mass in left upper lobe and nodule in right upper lobe, consistent with metastatic disease. 2. Airspace opacities in right perihilar region and at the lung bases with worsening on the right, co nsistent with atelectasis versus pneumonia. 3. Stable moderate-sized pleural effusions. 4. Cardiomegaly. Reviewed, dictated and finalized at location A. CAL SAFETY DIRECTOR IMPRESSION: 1. Mass in left upper lobe and nodule in right upper lobe, consistent with meta static disease. 2. Airspace opacities in right perihilar region and at the lung bases with wors ening on the right, consistent with atelectasis versus pneumonia. 3. Stable moderate-sized pleural effusions. 4. Cardiomegaly.
--- NOTE | ~2023-04-09 | XR_ITS ---
Portable chest x-ray Comparison: 04/10/2023 Clinical History: Respiratory failure Findings: Endotracheal tube, NG tube, and left-sided PICC line are in satisfactory positions. There are minimal bilateral pleural effusions with probable minimal bibasilar pulmonary edema/atelectasis. Hazy airspace opacity left upper lobe again present. Cardiomediastinal silhouette is stable. Bones a nd soft tissues are unremarkable. Impression: Support tubes, as above. Small pleural effusions with bibasilar pulmonary edema/atelectasis. Hazy left upper lobe airspace opacity, consistent with known underlying pulmonary mass. Reviewed, dictated and finalized at location . MOBILE TESTER Impression: Support tubes, as above. Small pleural effusions with bibasilar pulmonary edema/atelectasis. Hazy left upper lobe airspace opacity, consistent with known underlying pulmona ry mass.
--- NOTE | ~2023-04-09 | XR_ITS ---
EXAM: XR abdomen gastric tube insert DATE: 04/09/2023 14:00 HISTORY: OG tube placed . COMPARISON: None available. FINDINGS: Bilateral airspace disease and interstitial opacities. Small bilateral effusions. Suture l ine over the left upper quadrant. Normal bowel gas pattern. NG tube, tip over the stomach, side port at the GE junction. IMPRESSION: NG tube side port at the GE junction, consider advancing 5 cm. Reviewed, dictated and finalized at location K. O RECORDER MECHANIC
--- NOTE | ~2023-04-09 | CT_ITS ---
EXAMINATION: CT chest abdomen pelvis w con DATE: 04/09/2023 14:28 INDICATION: Respiratory distress, ICU PATIENT, AMS . TECHNIQUE: Computed tomography (CT) of the chest, abdomen, and pelvis was performed with 100 mL Omnip aque-350 intravenous contrast. Automated exposure control and iterative reconstruction technique were employed. The dose-length product was 2118.19 mGy-cm. COMPARISON: 01/27/2023 FINDINGS: CHEST: Examination limited by body habitus and arm down positioning. Thoracic aorta: No significant dilation or calcification. Lung parenchyma and airways: Low lung volumes. Diffuse bilateral groundglass opacities with septal th ickening. Enlarging left apical mass. Enlarging right upper lung nodule. Bilateral dependent consolid ation. Tracheomalacia with patent airways. Thoracic inlet, axillae and chest wall: No thyroid or soft tissue mass. No axillary lymphadenopathy. Mediastinum: No mass or lymphadenopathy. Heart and pericardium: Cardiomegaly. Mitral calcification. Coronary artery calcifications: Moderate. Pleura: Moderate bilateral simple and nonloculated pleural effusions. Thoracic bones: No acute osseous finding in the chest. ABDOMEN/PELVIS: Liver: Normal. Biliary/Gallbladder: Cholelithiasis. No bile duct dilation. Pancreas: No mass or duct dilation. Spleen: Normal. Adrenals:No mass. Kidneys: No suspicious mass, obstructing stone, or hydronephrosis. Bilateral cortical thinning. Multi ple renal cysts measuring up to 6.3 cm on the right. GI tract: No small or large bowel dilation. Appendix not visualized Mesentery/Peritoneum: No ascites, mass, or free air. Retroperitoneum: No mass Pelvis: Pelvic organs are within normal limits. 4 x 5 cm calcified right adnexal mass, stable. Soft Tissues: Mild body wall edema. Abdominopelvic bones: No acute osseous finding in the abdomen/pelvis. IMPRESSION: Enlarging left apical pulmonary mass and right upper lobe nodule, concerning for malignancy. Moderate bilateral pleural effusions, the loculation suspected in the prior radiograph were secondary to artifact from the left apical mass and adjacent pleural effusion and lung consolidation. Bilateral dependent consolidation may represent infection. Aspiration could be considered based on it s distribution. Reviewed, dictated and finalized at location K. CLASSIFIER IMPRESSION: Enlarging left apical pulmonary mass and right upper lobe nodule, concerning fo r malignancy. Moderate bilateral pleural effusions, the loculation suspected in the prior rad iograph were secondary to artifact from the left apical mass and adjacent pleur al effusion and lung consolidation. Bilateral dependent consolidation may represent infection. Aspiration could be considered based on its distribution.
--- NOTE | ~2023-04-09 | XR_ITS ---
EXAMINATION: XR chest PICC line Exam Date/Time: 04/09/2023 17:55 DIRECTOR OF OPERATIONS SUPPORT HISTORY: picc line placement Comparison: Same date at 1:52 PM. RESULT: Lines, tubes, and devices: New left upper extremity PICC terminating at the cavoatrial junction. Sta ble endotracheal and nasogastric tubes. Lungs and pleura: Unchanged pulmonary opacities. Cardiomediastinal silhouette: Stable. Other: No acute osseous or upper abdominal finding. IMPRESSION: Left upper extremity PICC, in good position. Reviewed, dictated and finalized at location K. CTOR OF OPERATIONS SUPPORT
--- NOTE | ~2023-04-09 | XR_ITS ---
EXAMINATION: XR chest ET placement Exam Date/Time: 04/09/2023 13:49 CLIENT SERVER DEVELOPER HISTORY: intubated Comparison: 04/09/2023 at 12:00 PM. RESULT: Lines, tubes, and devices: Endotracheal tube, terminating 3.2 cm above the andreea. Subdiaphragmatic NG tube, tip not visualized. Lungs and pleura: Fluid density in the left apex. Patchy airspace opacities in the right upper and l ower lung and left upper lung. Moderate diffuse reticular opacities. Bilateral costophrenic angle charissa nting. Cardiomediastinal silhouette: Stable. Other: No acute osseous or upper abdominal finding. IMPRESSION: Endotracheal 3.2 cm above the andreea. Patchy bilateral airspace disease may represent edema or pneumo tato. Interstitial edema. Bilateral pleural effusions, larger on the left, with apparent apical locula tion on the left. Reviewed, dictated and finalized at location K. NT SERVER DEVELOPER IMPRESSION: Endotracheal 3.2 cm above the andreea. Patchy bilateral airspace disease may rep resent edema or pneumonia. Interstitial edema. Bilateral pleural effusions, lar fannie on the left, with apparent apical loculation on the left.
--- NOTE | ~2023-04-09 | XR_ITS ---
EXAMINATION: XR chest 1V portable DATE: 04/09/2023 12:01 INDICATION: Shortness of breath. TECHNIQUE: A single frontal view of the chest was obtained. COMPARISON: Chest single view 04/02/2023, chest CT 02/04/2023 FINDINGS: There is a diffuse interstitial pattern in the lungs. There are airspace opacities in all l cassidy zones bilaterally. There is a small left pleural effusion. No pneumothorax. Cardiomegaly is noted . IMPRESSION: 1. Worsened diffuse lung disease, likely metastatic disease and superimposed pulmonary edema versus p neumonia. 2. Small left pleural effusion. 3. Cardiomegaly. Reviewed, dictated and finalized at location A. HASING ANALYST IMPRESSION: 1. Worsened diffuse lung disease, likely metastatic disease and superimposed pu lmonary edema versus pneumonia. 2. Small left pleural effusion. 3. Cardiomegaly.
--- NOTE | ~2023-04-09 | XR_ITS ---
Portable chest x-ray Comparison: 04/12/2023 Clinical History: Respiratory failure Findings: Endotracheal tube, NG tube, and left-sided PICC line are in place. Stable left upper lobe mass. Small bilateral pleural effusions are present with bibasilar pulmonary edema/atelectasis. Card iomediastinal silhouette is stable. Bones and soft tissues are unremarkable. Impression: Stable left upper lobe mass. Small bilateral pleural effusions with bibasilar pulmonary edema/atelectasis. Stable support tubes. Reviewed, dictated and finalized at location . WATER MECHANIC Impression: Stable left upper lobe mass. Small bilateral pleural effusions with bibasilar pulmonary edema/atelectasis. Stable support tubes.
--- NOTE | ~2023-04-09 | XR_ITS ---
XR chest 1V portable DATE: 04/15/2023 05:51 INDICATION: Acute respiratory failure TECHNIQUE: Portable upright AP chest on 04/15/2023 at 0512 hours COMPARISON: 04/14/2023 portable AP chest at 0517 hours 04/09/2023 CT chest FINDINGS: This is a limited single portable AP view of the chest, with mild motion, and partial exclu allan of the lower thoracic cavities. Again noted is left upper lobe atelectasis, consolidation and/or mass density. Approximately 2 cm lateral right mid to upper lung mass is suggested. There is cardiomegaly. Pulmonary vasculature appears prominent. Mild prominence of the minor fissure. There are infiltrates and/atelectasis in both mid and lower lung zones and bilateral pleural effusions. Left upper extremity PIC catheter is noted in the superior vena cava. Diffuse osteopenia. IMPRESSION: Left upper lung atelectasis, consolidation and/or mass lesion Possible right upper lobe lung mass Cardiomegaly, congestive changes including probable pulmonary edema mild to moderate pleural effusion s. Superimposed pneumonia is not excluded. Reviewed, dictated and finalized at location A. STANT RESTAURANT GENERAL MANAGER IMPRESSION: Left upper lung atelectasis, consolidation and/or mass lesion Possible right upper lobe lung mass Cardiomegaly, congestive changes including probable pulmonary edema mild to mod erate pleural effusions. Superimposed pneumonia is not excluded.
--- NOTE | ~2023-04-09 | XR_ITS ---
Portable chest x-ray Comparison: 04/13/2023 Clinical History: Respiratory failure Findings: Small right pleural effusion is present. Probable mild bibasilar pulmonary edema/atelectas is. Stable known left upper lobe mass. Left-sided PICC line in place. Cardiomediastinal silhouette i s stable. Bones and soft tissues are unremarkable. Impression: Stable known left upper lobe mass. Small right pleural effusion with mild bibasilar pulmonary edema/atelectasis. Stable cardiomegaly. Left-sided PICC line. Reviewed, dictated and finalized at location . ER BAILER OPERATOR Impression: Stable known left upper lobe mass. Small right pleural effusion with mild bibasilar pulmonary edema/atelectasis. Stable cardiomegaly. Left-sided PICC line.
--- NOTE | ~2023-04-09 | XR_ITS ---
Portable chest x-ray Comparison: 04/11/2023 Clinical History: Respiratory failure Findings: Endotracheal tube, NG tube, and left-sided PICC line are in place. [id number] bilat eral pleural effusions are present, with moderate bibasilar pulmonary edema and bibasilar atelectasis . Stable probable left upper lobe mass. Cardiomediastinal silhouette is stable. Bones and soft tissue s are unremarkable. Impression: Support tubes, as above. [id number]-li-[id number] pleural effusions with bibasilar pulmonary edema/atelectasis. Stable left upper lobe mass. Reviewed, dictated and finalized at location . K FARMER Impression: Support tubes, as above. [id number]-ie-[id number] pleural effusions with bibasilar pulmonary edema/atelectasis. Stable left upper lobe mass.
--- NOTE | 2023-04-09 11:43 | ECG_ITS ---
Measurements Intervals [place] Rate: 112 P: NH: 0 QRS: 72 QRSD: 101 T: 35 QT: 323 QTc: 443 Interpretive Statements ATRIAL FIBRILLATION WITH RAPID VENTRICULAR RESPONSE WITH ABERRANT CONDUCTION OR VENTRICULAR PREMATURE COMPLEXES INCOMPLETE RIGHT BUNDLE BRANCH BLOCK [90+ ms QRS DURATION, TERMINAL R IN V1/V2, 40+ ms S IN I/aVL/V4/V5/V6] MINIMAL ST DEPRESSION [0.025+ mV ST DEPRESSION] ABNORMAL RHYTHM ECG COMPARED TO ECG 04/02/2023 14:30:21 VENTRICULAR RATE IS SLOWER Electronically Signed On 04-09-2023 15:14:33 [employer] by Scotty Palmer M.D.
--- NOTE | 2023-04-09 11:44 | ED.GENADULT ---
HPI - General Adult General Chief complaint: Shortness of Breath/Dyspnea Stated complaint: dyspnea, afib RVR, lethargic History of Present Illness HPI narrative: 67-year-old female with history of atrial fibrillation, lung cancer, breast cancer, chronic kidney disease, diabetic peripheral neuropathy, hypertension, CHF, hyperlipidemia, hypothyroidism, insomnia present to the emergency department from [facility] for evaluation of increased shortness of breath. Patient had a fall on [place] [address], patient was unable to stand due to weakness. At that time patient was found to be in our fib with RVR. Upon arrival to the emergency department patient is fluctuate between AFib with RVR and rate control AFib. Related Data Home Medications Medication Instructions Recorded Confirmed pregabalin 100 mg capsule (Lyrica) 100 mg PO BID 11/12/19 04/09/23 anastrozole 1 mg tablet 1 mg PO DAILY 07/02/20 04/09/23 diphenhydramine 25 2 tablet PO QHS PRN Insomnia 12/24/20 04/09/23 mg-acetaminophen 500 mg tablet (Tylenol PM Extra Strength) cholecalciferol (vitamin D3) 25 50 mcg PO DAILY 08/09/22 04/09/23 mcg (1,000 unit) capsule albuterol sulfate 90 mcg/actuation 1 inh inhalation DAILY 02/04/23 04/09/23 aerosol inhaler (Ventolin HFA) oxycodone myristate 18 mg capsule 18 mg PO Q12H 02/04/23 04/09/23 sprinkle extended release 12hr(DON'T CRUSH) (Xtampza ER) pantoprazole 40 mg tablet,delayed 40 mg PO DAILY 02/04/23 04/09/23 release rivaroxaban 20 mg tablet (Xarelto) 20 mg PO QPM 02/04/23 04/09/23 furosemide 20 mg tablet See Rx Instructions .Route .COMPLEX 02/15/23 04/09/23 oxycodone 5 mg tablet 5 mg PO BID PRN Breakthrough Pain 04/02/23 04/09/23 Allergies Allergy/AdvReac Type Severity Reaction Status Date / Time tetracycline AdvReac Unknown Vomiting Verified 04/09/23 14:34 Review of Systems Review of Systems: All systems reviewed & are unremarkable except as noted in HPI and below PMFSH Past Medical History Medical History (Updated 04/09/23 @ 16:19 by Lily Epps PA-C) Atrial fibrillation Cancer of left lung Cancer of right breast Chronic kidney disease Diabetic peripheral neuropathy Enlarged thyroid Enlarged left lobe. Essential (primary) hypertension Heart failure with preserved ejection fraction Hyperlipidemia Hypothyroidism Insomnia Lung cancer, upper lobe Obstructive sleep apnea Pulmonary hypertension Stress incontinence Type 2 diabetes mellitus with diabetic neuropathy Vitamin D deficiency Surgical History Surgical History History of section History of tonsillectomy Family History Family History Father Family history of lung cancer, Onset Age: 72 Grandparent Family history of malignant neoplasm of breast Other Diabetes mellitus Family history of cardiovascular disease Family history of coronary artery disease Family history of malignant neoplasm of male breast Hypertension Social History Social History Social History: Surrogate medical decision maker: Erika HollinsMagdalenapaula, daughter. Code status: Full code. Smoking packs per day: 1 Smoking cigarettes per day: 20.0 Years smoked: 35 Smoking pack-years: 35.00 Smoking status: Never smoker Alcohol intake: never Substance use: never Substance use type: does not use Other substance usage details: None since the . Do You Feel Safe in your Home?: Yes Lack of Transportation: YES Lack of Food: Never True Current Housing: I Have Housing Concerned About Future Housing: No Difficulty Paying Gas/Electric Bills: No Difficulty Paying for Meds: No Currently Unemployed: No Education: Decline to Answer Difficulty w/ Childcare or Family Care: No Living arrangements: alone Additional living arrangements comments: Patient live
[2023-04-09 11:45] LABS: Alveolar/Arterial O2 Gradient 160.2 mmHg; Base Excess ABG 10.9 mEq/l (+/-2.0); Carboxyhemoglobin 1.9 % THb (0-2.0); Fractional Inspired Oxygen 44 %; HCO3 ABG 39.3 mEq/l (22.0-26.0); Methemoglobin ABG 0.1 %THb (0-1.5); Oxygen Content ABG 15.4 %vol (16.0-22.0); Oxygen Saturation ABG 92.2 % (95.0-100.0); Oxyhemoglobin 91.2 % THb (90.0-100.0); PO2 ABG 69.3 mmHg (80.0-100.0); PO2 FiO2 Ratio Arterial Blood 1.58 %; Reduced Hemoglobin 6.8 %THb (0-5.0); pH ABG 7.344 (7.350-7.450)
[2023-04-09 11:46] LABS: Device NASAL CANNULA; Modified Allen's Test Pass; PCO2 ABG 73.9 mmHg (35.0-45.0); Site Drawn LEFT RADIAL
[2023-04-09 12:40] LABS: Basophils Absolute Auto 0.1 K/mm3 (0.0-0.1); Basophils Percent Auto 0.5 % (0.2-1.2); Hematocrit 34.9 % (37.0-47.0); Hemoglobin 10.8 g/dL (12.0-15.0); Immature Granulocyte Absolute 0.14 K/mm3 (0.00-0.031); Immature Granulocyte Percent A 1.5 % (0-0.5); Immature Platelet Fraction Pct 4.6 % (0.9-11.2); Lymphocytes Percent Auto 3.2 % (18.3-44.2); Mean Corpuscular HGB Conc 30.9 g/dl (32-36); Mean Corpuscular Hemoglobin 35.8 pg (26-34); Mean Corpuscular Volume 115.6 fl (80-100); Mean Platelet Volume 10.4 fl (7.4-10.4); Monocytes Absolute Auto 1.2 K/mm3 (0.1-0.6); Monocytes Percent Auto 12.6 % (2.6-8.5); Neutrophils Absolute Auto 7.7 K/mm3 (1.3-6.7); Neutrophils Percent Auto 82.2 % (45.5-73.1); Nucleated Red Blood Cells Absolute Auto 0.1 K/mm3 (0.0-0.012); Nucleated Red Blood Cells Perc 1.1 % (0.0-0.2); Platelet Count Result 98 k/mm3 (150-375); Red Blood Count 3.02 M/mm3 (4.2-5.4); Red Cell Distribution Width 16.6 % (11.5-14.5); White Blood Count 9.4 K/mm3 (4.5-10.0)
[2023-04-09 12:46] LABS: Appearance Urine Cloudy (Clear); Bacteria Urine None Seen /hpf; Bilirubin Urine 2+ (Negative); Color Urine Dark Yellow (Yellow); Glucose Urine UA Negative (Negative); Ketones Urine Negative (Negative); Leukocyte Esterase Ur Trace LEU/UL (Negative); Nitrate Urine Negative (Negative); Non Pathogenic Casts 0-2; Protein Urine 2+ mg/dL (Negative); Squamous Epithelial Cell Urine Occasional /hpf (Few); Urobilinogen Urine >=8.0 mg/dL (<2.0); WBC Urine 0-5 /hpf
[2023-04-09 12:48] LABS: Alanine Aminotransferase 25 U/L (6-35); Albumin Level 3.1 g/dL (3.5-5.1); Alkaline Phosphatase 94 U/L (38-126); Anion Gap 0 mmol/L (8-16); Aspartate Amino Transferase 24 U/L (14-36); Bilirubin,Total 1.6 mg/dL (0.2-1.3); Blood Urea Nitrogen 20 mg/dL (7-17); Calcium 9.2 mg/dL (8.4-10.2); Carbon Dioxide 38 mmol/L (22-30); Chloride 96 mmol/L (98-107); Estimated CRCL calculation 117 ml/min; Estimated Glomerular Filt Rate > 60; Glucose 182 mg/dL (65-110); Potassium 4.3 mmol/L (3.4-5.0); Sodium 134 mmol/L (137-145)
[2023-04-09 12:58] LABS: Add Urine Microscopic? YES
[2023-04-09 13:01] LABS: Platelet Estimate Decreased (Adequate); Schistocytes None Seen (NORMAL)
[2023-04-09 13:14] LABS: Influenza A QL RT-PCR Negative (Negative); Influenza B QL RT-PCR Negative (Negative); RSV RNA, RT-PCR Negative (Negative); SARS-CoV-2 RNA PCR Negative (Negative)
[2023-04-09 13:19] LABS: Alveolar/Arterial O2 Gradient 81.5 mmHg; Base Excess ABG 12.3 mEq/l (+/-2.0); Carboxyhemoglobin 2.2 % THb (0-2.0); Device NON-INVASIVE VENT; Fractional Inspired Oxygen 35 %; HCO3 ABG 41.3 mEq/l (22.0-26.0); Methemoglobin ABG 0.2 %THb (0-1.5); Modified Allen's Test Pass; Oxygen Content ABG 16.7 %vol (16.0-22.0); Oxygen Saturation ABG 94.2 % (95.0-100.0); PCO2 ABG 77.7 mmHg (35.0-45.0); PO2 ABG 77.7 mmHg (80.0-100.0); PO2 FiO2 Ratio Arterial Blood 2.22 %; Reduced Hemoglobin 5.6 %THb (0-5.0); Site Drawn LEFT RADIAL; Total Hemoglobin 12.9 g/dL (12.0-18.0); pH ABG 7.343 (7.350-7.450)
[2023-04-09 13:20] LABS: Non-Invasive Expiratory Pressure 7 CMH2O; Non-Invasive Inspiratory Pressure 14 CMH2O; Non-Invasive Vent Rate 20 /MIN
--- NOTE | 2023-04-09 13:33 | PC.NURSE ---
EDP Dr Salcedo at bedside for intubation, resp in assist. [address] IVP by [address] Salcedo at 1334
[2023-04-09 13:34] LABS: INR 1.8; Prothrombin Time 22.2 Seconds (11.1-14.7)
--- NOTE | 2023-04-09 13:34 | PC.NURSE ---
[address] Salcedo at bedside, IVP
[2023-04-09 13:35] LABS: Partial Thromboplastin Time 43.2 SECONDS (22.3-36.8)
--- NOTE | 2023-04-09 13:35 | PC.NURSE ---
Pt has 7.5 tube, 21 at the lip, positive color change, equal chest rise and fall
[2023-04-09] MEDS: RAPID SEQUENCE INTUBATION KIT 1 EACH (13:36)
[2023-04-09] MEDS: PROPOFOL IV EMULSION 100 ML 4.65 MG IV CONT (13:42)
[2023-04-09 14:07] LABS: Triglycerides 80 mg/dL (<150)
[2023-04-09 14:49] LABS: Base Excess ABG 13.7 mEq/l (+/-2.0); Carboxyhemoglobin 1.5 % THb (0-2.0); Fractional Inspired Oxygen 80 %; HCO3 ABG 37.1 mEq/l (22.0-26.0); Methemoglobin ABG 0.1 %THb (0-1.5); Oxygen Content ABG 15.2 %vol (16.0-22.0); Oxygen Saturation ABG 99.1 % (95.0-100.0); Oxyhemoglobin 96.7 % THb (90.0-100.0); PCO2 ABG 41.9 mmHg (35.0-45.0); PO2 ABG 142.4 mmHg (80.0-100.0); PO2 FiO2 Ratio Arterial Blood 1.78 %; Reduced Hemoglobin 1.7 %THb (0-5.0)
[2023-04-09] MEDS: CEFEPIME 2 GM/NS 50 ML 2 GM/50 ML BAG IVPB ×2 (14:52→21:11)
[2023-04-09 15:15] LABS: Arterial Blood Gas Ventilator rate 20 /MIN; Device VENTILATOR; Modified Allen's Test Pass; Site Drawn LEFT RADIAL; pH ABG 7.565 (7.350-7.450)
[2023-04-09 15:16] LABS: Arterial Blood Gas PEEP 8 cmH2O; Arterial Blood Gas Tidal Volume 400 ml; Arterial Blood Gas Vent Mode CMV
[2023-04-09] MEDS: VANCOMYCIN 1,250 MG/NS 250 ML 1,250 MG/250 ML BAG 166.67 MG IVPB ×2 (15:43→18:11)
--- NOTE | 2023-04-09 15:44 | PM.IMHP ---
H&P: HPI History of Present Illness Date/Time: 04/09/23 16:00 Chief Complaint: Shortness of breath. Narrative: This is a 67-year-old female with multiple medical problems including paroxysmal atrial fibrillation, diastolic congestive heart failure, chronic kidney disease, hypertension, sleep apnea, type 2 diabetes mellitus, breast cancer, and lung cancer presented to the emergency department via EMS from [facility] for evaluation of shortness of breath. She is currently sedated and intubated on mechanical ventilation and all of the following is obtained via a review of her electronic medical records as well as information provided by her family members. The patient is known to myself and the hospitalist service from a recent admission on 04/02/2023 for atrial fibrillation with rapid ventricular response and rhabdomyolysis after presenting with weakness, having been on the toilet overnight within abilities to get herself up. She was initially started on a Cardizem drip and transitioned to p.o. metoprolol. Total CK improved with IV fluid rehydration. She worked with PT/OT and was discharged to [facility] 3 days later. She seemed to be doing okay on day of admission however yesterday staff noted that she seemed to be short of breath when talking after having been transition from the commode to the bed. No wheezing or crackles were noted on pulmonary auscultation though a chest x-ray was ordered and albuterol was available as needed. Today she was increasingly short of breath and she was placed on 2 L nasal cannula. EMS was summoned as her SpO2 dropped into the upper 80s while on oxygen and she arrived to the ED lethargic with an SpO2 of 93% on 6 L. In the ED: Her blood pressures have been stable thus far and she has been afebrile. Initial ABG showed a pH of 7.344 and a pCO2 of 73.9. She was placed on BiPAP and at the time of repeat ABG she was more lethargic and there were concerns that she was not able to protect her airway and she was intubated. Labs were significant for WBC count of 9.4, hemoglobin 10.8, MCV 115.6, platelet 98, INR 1.8, sodium 134, chloride 96, carbon dioxide 38, BUN 20, creatinine 0.60, glucose 182. She tested negative for influenza, RSV, and COVID. CT of the chest, abdomen, and pelvis demonstrated an enlarging left apical pulmonary mass and right upper lobe nodule concerning for malignancy, moderate bilateral pleural effusions, and by a lateral dependent consolidation which may represent infection or even possibly aspiration. She was given 2 g cefepime and 1250 mg vancomycin and she has been admitted to the ICU for further treatment. Review of Systems Review of Systems: Unable to obtain given clinical condition. [facility] Past Medical History Medical History (Updated 04/09/23 @ 16:19 by Lily Epps PA-C) Atrial fibrillation Cancer of left lung Cancer of right breast Chronic kidney disease Diabetic peripheral neuropathy Enlarged thyroid Enlarged left lobe. Essential (primary) hypertension Heart failure with preserved ejection fraction Hyperlipidemia Hypothyroidism Insomnia Lung cancer, upper lobe Obstructive sleep apnea Pulmonary hypertension Stress incontinence Type 2 diabetes mellitus with diabetic neuropathy Vitamin D deficiency Surgical History Surgical History History of section History of tonsillectomy Family History Family History Father Family history of lung cancer, Onset Age: 72 Grandparent Family history of malignant neoplasm of breast Other Diabetes mellitus Family history of cardiovascular disease Family history of coronary artery disease Family history of malignant neoplasm of male breast Hypertension Social History Social History Social History: Surrogate medical decision maker: Erika Rose
[2023-04-09] MEDS: SODIUM CHLORIDE 0.9% IV 1,000 ML 125 ML IV CONT (15:46)
[2023-04-09 15:53] LABS: MRSA (PCR) NOT DETECTED (NOT DETECTE)
--- NOTE | 2023-04-09 16:00 | PC.NURSE ---
This patient, Amanda Schultz, was admitted to Intensive Care Unit-3. Patient/family oriented to hospital policies and general routines including ID bracelet, bed and alarms, visiting hours, pain management, procedures, bathroom and other care routines, personal items, smoking policy, room service/diet, and visiting hours. Information on how to activate the Rapid Response Team has been discussed. Patient/Family are encouraged to report perceived risks to care and to ask questions if they do not understand what they are told or what they should do.
[2023-04-09 17:08] LABS: Magnesium 1.9 mg/dL (1.6-2.3)
[2023-04-09 17:14] LABS: NT Pro B Type Natriuretic Pept 3210 pg/mL (19.9-100)
[2023-04-09 17:22] LABS: Fibrinogen 774 mg/dl (215-510)
[2023-04-09 17:23] LABS: CRP 15.6 mg/dL (<1.0)
[2023-04-09 18:19] LABS: Glucose Point of Care 164 mg/dl (65-105)
[2023-04-09] MEDS: PROPOFOL IV EMULSION 100 ML 19.2 MG IV CONT (18:31)
[2023-04-09 18:45] LABS: Immature Reticulocyte Fraction 46.1 % (3.0-15.9); Reticulocyte Hemoglobin Conten 30.4 pg (28.2-35.7); Reticulocyte Percent 4.08 % (0.7-4.3); Reticulocytes Absolute 0.12 M/mm3 (0.02-0.1)
[2023-04-09 18:59] LABS: Triglycerides 88 mg/dL (<150)
[2023-04-09 19:21] LABS: Procalcitonin 0.1 ng/mL
[2023-04-09] MEDS: CENTRAL LINE FLUSH 10 ML IV PUSH (21:11)
[2023-04-09] MEDS: MINERAL OIL/WHITE PETROLATUM OINTMENT 1 APPLIC EACH EYE (21:11)
[2023-04-09] MEDS: PROPOFOL IV EMULSION 100 ML 28.8 MG IV CONT (22:20)
[2023-04-09 23:49] LABS: Glucose Point of Care 163 mg/dl (65-105)
[2023-04-10] VITALS (51 sets, daily range): BP systolic 100–132; BP diastolic 59–84; PULSE 89–142; RESP 16–24; TEMP 37.3–37.8; O2SAT 93–98
[2023-04-10] MEDS: PROPOFOL IV EMULSION 100 ML 28.8 MG IV CONT ×3 (00:47→20:22)
[2023-04-10] MEDS: VANCOMYCIN 1,500 MG/NS 500 ML 1,500 MG/500 ML BAG 250 MG IVPB ×2 (04:17→17:21)
[2023-04-10 04:37] LABS: Basophils Percent Auto 0.1 % (0.2-1.2); Hematocrit 30.1 % (37.0-47.0); Hemoglobin 9.6 g/dL (12.0-15.0); Immature Granulocyte Absolute 0.08 K/mm3 (0.00-0.031); Immature Granulocyte Percent A 1.1 % (0-0.5); Lymphocytes Absolute Auto 0.43 K/mm3 (0.9-3.2); Lymphocytes Percent Auto 5.7 % (18.3-44.2); Mean Corpuscular HGB Conc 31.9 g/dl (32-36); Mean Corpuscular Hemoglobin 35.3 pg (26-34); Mean Corpuscular Volume 110.7 fl (80-100); Mean Platelet Volume 10.5 fl (7.4-10.4); Monocytes Absolute Auto 1.2 K/mm3 (0.1-0.6); Monocytes Percent Auto 15.6 % (2.6-8.5); Neutrophils Absolute Auto 5.8 K/mm3 (1.3-6.7); Neutrophils Percent Auto 77.5 % (45.5-73.1); Nucleated Red Blood Cells Absolute Auto 0.1 K/mm3 (0.0-0.012); Nucleated Red Blood Cells Perc 0.7 % (0.0-0.2); Platelet Count Result 117 k/mm3 (150-375); Red Blood Count 2.72 M/mm3 (4.2-5.4); Red Cell Distribution Width 16.6 % (11.5-14.5); White Blood Count 7.5 K/mm3 (4.5-10.0)
[2023-04-10 04:52] LABS: Alanine Aminotransferase 24 U/L (6-35); Albumin Level 2.5 g/dL (3.5-5.1); Alkaline Phosphatase 82 U/L (38-126); Anion Gap 4 mmol/L (8-16); Aspartate Amino Transferase 26 U/L (14-36); Bilirubin,Total 1.8 mg/dL (0.2-1.3); Blood Urea Nitrogen 21 mg/dL (7-17); Calcium 8.8 mg/dL (8.4-10.2); Carbon Dioxide 36 mmol/L (22-30); Chloride 97 mmol/L (98-107); Estimated CRCL calculation 143 ml/min; Estimated Glomerular Filt Rate > 60; Glucose 149 mg/dL (65-110); Magnesium 1.8 mg/dL (1.6-2.3); Potassium 3.1 mmol/L (3.4-5.0); Sodium 137 mmol/L (137-145)
[2023-04-10 05:05] LABS: Anisocytosis 1+ (NORMAL); Platelet Estimate Decreased (Adequate); Schistocytes None Seen (NORMAL)
[2023-04-10 05:07] LABS: Alveolar/Arterial O2 Gradient 354.6 mmHg; Base Excess ABG 10.2 mEq/l (+/-2.0); Fractional Inspired Oxygen 65 %; HCO3 ABG 32.2 mEq/l (22.0-26.0); Oxygen Content ABG 14.7 %vol (16.0-22.0); Oxygen Saturation ABG 96.6 % (95.0-100.0); Oxyhemoglobin 94.4 % THb (90.0-100.0); PCO2 ABG 33.9 mmHg (35.0-45.0); PO2 FiO2 Ratio Arterial Blood 1.11 %
[2023-04-10 05:08] LABS: Arterial Blood Gas PEEP 8 cmH2O; Arterial Blood Gas Tidal Volume 400 ml; Arterial Blood Gas Vent Mode CMV; Arterial Blood Gas Ventilator rate 20 /MIN; Device VENTILATOR; Modified Allen's Test Pass; Site Drawn LEFT RADIAL; pH ABG 7.596 (7.350-7.450)
[2023-04-10] MEDS: CEFEPIME 2 GM/NS 50 ML 2 GM/50 ML BAG IVPB ×3 (05:59→20:23)
[2023-04-10] MEDS: LEVOTHYROXINE SODIUM 88 MCG TABLET PO (05:59)
[2023-04-10] MEDS: METOPROLOL TARTRATE 50 MG TAB PO ×4 (05:59→23:51)
[2023-04-10] MEDS: CENTRAL LINE FLUSH 10 ML IV PUSH ×3 (06:00→23:43)
[2023-04-10] MEDS: PROPOFOL IV EMULSION 100 ML 19.2 MG IV CONT (08:00)
--- NOTE | 2023-04-10 08:13 | WPDCNINT ---
Assessment and Plan Assessment and plan (1) Acute hypercapnic respiratory failure: Code(s): J96.02 - Acute respiratory failure with hypercapnia Status: Acute Assessment and Plan: 04/09/2023: Patient presented the ED from [facility] with complains of worsening shortness of breath, hypoxia. Upon arrival to the ED she was on 6 L nasal cannula with 93% O2 sats. Patient was placed on BiPAP, but continue get somnolent and lethargic so was intubated for airway protection -04/09: Intubated -Currently on CMV mode of ventilation, peep of 8, 55% FiO2 -chest x-ray and ABGs reviewed, ventilator adjusted, decreased tidal volume -add bronchodilators -continue propofol for sedation, maintain RASS of 0 to -2, daily sedation vacation -04/09: Chest x-ray, showed worsening diffuse lung disease, likely metastatic disease and superimposed pulmonary edema versus pneumonia. Small left pleural effusion, cardiomegaly -04/09: CT chest/abdomen/pelvis: Showed enlarging left apical pulmonary mass and right upper lobe nodule, concerning for malignancy, moderate bilateral pleural effusions, bilateral dependent consolidation may represent infection, aspiration could be considered. (2) Pneumonia: Code(s): J18.9 - Pneumonia, unspecified organism Status: Acute Assessment and Plan: Pneumonia as seen on CT scan as above -patient started on vancomycin and cefepime (04/09) -04/09: Blood cultures have been ordered and pending -04/10/2023: Sputum cultures have been ordered (3) Pleural effusion: Code(s): J90 - Pleural effusion, not elsewhere classified Status: Acute Assessment and Plan: Patient has bilateral pleural effusions, continue peep of 8 -if pleural effusions do not resolve, may need thoracentesis (4) Atrial fibrillation: Qualifiers: Atrial fibrillation type: unspecified Qualified Code(s): I48.91 - Unspecified atrial fibrillation Code(s): I48.91 - Unspecified atrial fibrillation Status: Acute Assessment and Plan: History of atrial fibrillation, hemodynamically stable, heart rates in the 100s -continue diltiazem, metoprolol, rivaroxaban -will continue to monitor the heart rate and blood pressures (5) Cancer of left lung: Code(s): C34.92 - Malignant neoplasm of unspecified part of left bronchus or lung Status: Acute Assessment and Plan: History of left lung malignancy -follows Dr. Infante -last chemotherapy was on 03/29/2023 -continue anastrozole (6) Cancer of right breast: Code(s): C50.911 - Malignant neoplasm of unspecified site of right female breast Status: Acute Assessment and Plan: As above (7) CHF (congestive heart failure): Qualifiers: Heart failure type: unspecified Heart failure chronicity: unspecified Qualified Code(s): I50.9 - Heart failure, unspecified Code(s): I50.9 - Heart failure, unspecified Status: Acute Assessment and Plan: 02/06/2023 echocardiogram:? 1. Left ventricular chamber dimension is normal. ? 2. Left ventricular systolic function is normal, estimated at 65-70%. ? 3. There is mildly increased left ventricular wall thickness. ? 4. The left ventricular diastolic function is indeterminate. ? 5. Right ventricular chamber dimension is mildly enlarged. ? 6. Left atrial chamber dimension is severely enlarged. ? 7. Right atrial chamber dimension is severely enlarged. ? 8. There is mild to moderate aortic valve regurgitation. ? 9. There is mild aortic valve calcification. ? 10. There is mild to moderate mitral valve regurgitation. ? 11. There is moderate to severe tricuspid valve regurgitation. ? 12. Severe pulmonary hypertension, estimated pulmonary arterial systolic pressure is 79 mmHg. ? 13. There is mild to moderate pulmonic regurgitation. (8) Thrombocytopenia: Code(s): D69.6 - Thrombocytopenia, unspecified Status: Acute Assessment and Plan: Dianna
[2023-04-10] MEDS: PANTOPRAZOLE SODIUM IV 40 MG VIAL IV PUSH ×2 (08:15→20:23)
[2023-04-10] MEDS: LACTATED RINGERS 500 ML IV CONT (08:15)
[2023-04-10] MEDS: POTASSIUM CHLORIDE 20 MEQ PACKET (FOR LIQUID) 80 MEQ FEED TUBE (08:57)
[2023-04-10] MEDS: CHOLECALCIFEROL 1,000 UNITS TABLET 2000 UNITS PO (08:58)
[2023-04-10] MEDS: MINERAL OIL/WHITE PETROLATUM OINTMENT 1 APPLIC EACH EYE ×2 (09:00→20:25)
[2023-04-10] MEDS: ANASTROZOLE (*CHEMO) 1 MG TABLET PO (09:01)
[2023-04-10] MEDS: dilTIAZem HCL CD 180 MG CAP.24HR PO (09:02)
[2023-04-10 12:37] LABS: Alveolar/Arterial O2 Gradient 186.8 mmHg; Base Excess ABG 10.3 mEq/l (+/-2.0); Fractional Inspired Oxygen 45 %; HCO3 ABG 34.3 mEq/l (22.0-26.0); Oxygen Content ABG 15.4 %vol (16.0-22.0); Oxygen Saturation ABG 97.1 % (95.0-100.0); Oxyhemoglobin 95.4 % THb (90.0-100.0); PCO2 ABG 43.6 mmHg (35.0-45.0); PO2 ABG 84.5 mmHg (80.0-100.0); PO2 FiO2 Ratio Arterial Blood 1.88 %; Total Hemoglobin 11.4 g/dL (12.0-18.0)
[2023-04-10 12:38] LABS: Arterial Blood Gas Ventilator rate 18 /MIN; Device VENTILATOR; Modified Allen's Test Pass; Site Drawn LEFT RADIAL; pH ABG 7.514 (7.350-7.450)
[2023-04-10 12:39] LABS: Arterial Blood Gas PEEP 8 cmH2O; Arterial Blood Gas Tidal Volume 350 ml; Arterial Blood Gas Vent Mode CMV
[2023-04-10] MEDS: TOLNAFTATE 1% POWDER 45 GM BTL 1 APPLIC TOPICAL ×2 (12:42→20:25)
[2023-04-10 12:44] LABS: Glucose Point of Care 151 mg/dl (65-105)
[2023-04-10] MEDS: PROPOFOL IV EMULSION 100 ML 24 MG IV CONT ×2 (13:14→17:23)
[2023-04-10] MEDS: oxyCODONE HCL (*CRX) 5 MG TAB IR PO (13:20)
[2023-04-10] MEDS: IPRATROPIUM BR 0.02% INH SOLN 0.5 MG/2.5 ML VIAL INHALATION ×2 (14:54→20:27)
[2023-04-10] MEDS: LEVALBUTEROL NEB 1.25 MG/3 ML 0.63 MG INHALATION ×2 (14:54→20:27)
--- NOTE | 2023-04-10 17:07 | PC.NURSE ---
Family concerned about pain management, disagree with oxycodone schedule. Dr. Swenson updated, Fentanyl gtt ordered.
[2023-04-10] MEDS: FENTANYL 2,500MCG/NS250ML(*CRX 2,500 MCG/250 ML BAG IV CONT (17:18)
[2023-04-10] MEDS: RIVAROXABAN 20 MG TABLET PO (17:44)
[2023-04-10 18:09] LABS: Glucose Point of Care 152 mg/dl (65-105)
[2023-04-10] MEDS: AMIODARONE 150 MG/D5W 100 ML 150 MG/100 ML BAG 600 MG IV CONT (22:28)
[2023-04-10] MEDS: AMIODARONE 360 MG/D5W 200 ML 360 MG/200 ML BAG 33.33 MG IV CONT (22:30)
--- NOTE | 2023-04-10 23:37 | PC.NURSE ---
Patient's heart rate continued to be Afib in the 130's-140's. Dr. Swenson notified and orders received to begin Amiodarone bolus and drip. Cardizem placed on hold. Will continue to monitor.
[2023-04-10] MEDS: PROPOFOL IV EMULSION 100 ML 33.6 MG IV CONT (23:43)
[2023-04-10 23:56] LABS: Glucose Point of Care 177 mg/dl (65-105)
[2023-04-11] VITALS (64 sets, daily range): BP systolic 92–121; BP diastolic 52–83; PULSE 96–115; RESP 15–23; TEMP 37.1–37.7; O2SAT 92–98; BMI 63.8
[2023-04-11] MEDS: PROPOFOL IV EMULSION 100 ML 28.8 MG IV CONT ×6 (02:12→18:56)
[2023-04-11] MEDS: LEVALBUTEROL NEB 1.25 MG/3 ML 0.63 MG INHALATION ×4 (02:24→20:45)
[2023-04-11] MEDS: IPRATROPIUM BR 0.02% INH SOLN 0.5 MG/2.5 ML VIAL INHALATION ×4 (02:24→20:45)
[2023-04-11 03:47] LABS: Vancomycin Trough 15.2 ug/mL (10.0-20.0)
[2023-04-11] MEDS: AMIODARONE 360 MG/D5W 200 ML 360 MG/200 ML BAG 16.67 MG IV CONT ×2 (04:13→15:50)
[2023-04-11] MEDS: VANCOMYCIN 1,500 MG/NS 500 ML 1,500 MG/500 ML BAG 250 MG IVPB ×2 (04:14→15:31)
[2023-04-11] MEDS: LEVOTHYROXINE SODIUM 88 MCG TABLET PO (05:35)
[2023-04-11] MEDS: METOPROLOL TARTRATE 50 MG TAB PO ×4 (05:35→23:46)
[2023-04-11] MEDS: CEFEPIME 2 GM/NS 50 ML 2 GM/50 ML BAG IVPB ×3 (05:35→21:09)
[2023-04-11] MEDS: CENTRAL LINE FLUSH 10 ML IV PUSH ×3 (05:36→21:12)
[2023-04-11 05:52] LABS: Alveolar/Arterial O2 Gradient 103.1 mmHg; Base Excess ABG 7.4 mEq/l (+/-2.0); Carboxyhemoglobin 0.3 % THb (0-2.0); Fractional Inspired Oxygen 35 %; HCO3 ABG 34.4 mEq/l (22.0-26.0); Methemoglobin ABG 0.2 %THb (0-1.5); Oxygen Content ABG 15.3 %vol (16.0-22.0); Oxygen Saturation ABG 94.5 % (95.0-100.0); Oxyhemoglobin 93.4 % THb (90.0-100.0); PO2 ABG 75.8 mmHg (80.0-100.0); PO2 FiO2 Ratio Arterial Blood 2.17 %; Reduced Hemoglobin 6.1 %THb (0-5.0); Total Hemoglobin 11.6 g/dL (12.0-18.0)
[2023-04-11 05:55] LABS: Device VENTILATOR; Modified Allen's Test Pass; PCO2 ABG 60.8 mmHg (35.0-45.0)
[2023-04-11 05:56] LABS: Arterial Blood Gas Ventilator rate 18 /MIN; Site Drawn LEFT RADIAL
[2023-04-11 05:57] LABS: Arterial Blood Gas PEEP 8 cmH2O; Arterial Blood Gas Tidal Volume 350 ml; Arterial Blood Gas Vent Mode CMV
[2023-04-11 06:05] LABS: Basophils Absolute Auto 0.1 K/mm3 (0.0-0.1); Basophils Percent Auto 0.7 % (0.2-1.2); Eosinophils Absolute Auto 0.1 K/mm3 (0-0.3); Eosinophils Percent Auto 1.9 % (0-4.4); Hematocrit 34.3 % (37.0-47.0); Hemoglobin 10.7 g/dL (12.0-15.0); Immature Granulocyte Absolute 0.13 K/mm3 (0.00-0.031); Immature Granulocyte Percent A 1.9 % (0-0.5); Lymphocytes Absolute Auto 0.63 K/mm3 (0.9-3.2); Mean Corpuscular HGB Conc 31.2 g/dl (32-36); Mean Corpuscular Hemoglobin 35.4 pg (26-34); Mean Corpuscular Volume 113.6 fl (80-100); Mean Platelet Volume 10.1 fl (7.4-10.4); Monocytes Absolute Auto 1.8 K/mm3 (0.1-0.6); Monocytes Percent Auto 26.1 % (2.6-8.5); Neutrophils Absolute Auto 4.3 K/mm3 (1.3-6.7); Neutrophils Percent Auto 60.4 % (45.5-73.1); Platelet Count Result 175 k/mm3 (150-375); Red Blood Count 3.02 M/mm3 (4.2-5.4); Red Cell Distribution Width 17.2 % (11.5-14.5)
[2023-04-11 06:09] LABS: INR 1.9; Prothrombin Time 22.6 Seconds (11.1-14.7)
[2023-04-11 06:10] LABS: Partial Thromboplastin Time 39.5 SECONDS (22.3-36.8)
[2023-04-11 06:16] LABS: Alanine Aminotransferase 21 U/L (6-35); Albumin Level 2.7 g/dL (3.5-5.1); Alkaline Phosphatase 98 U/L (38-126); Anion Gap 4 mmol/L (8-16); Aspartate Amino Transferase 23 U/L (14-36); Bilirubin,Total 1.2 mg/dL (0.2-1.3); Blood Urea Nitrogen 26 mg/dL (7-17); Calcium 8.9 mg/dL (8.4-10.2); Carbon Dioxide 34 mmol/L (22-30); Chloride 99 mmol/L (98-107); Estimated CRCL calculation 121 ml/min; Estimated Glomerular Filt Rate > 60; Glucose 180 mg/dL (65-110); Magnesium 1.8 mg/dL (1.6-2.3); Phosphorus 4.6 mg/dL (2.5-4.5); Potassium 3.9 mmol/L (3.4-5.0); Sodium 137 mmol/L (137-145); Triglycerides 152 mg/dL (<150)
[2023-04-11 06:19] LABS: Lactic Acid Reflex 1.2 mmol/L (0.7-2.0)
[2023-04-11] MEDS: CHOLECALCIFEROL 1,000 UNITS TABLET 2000 UNITS PO (07:55)
[2023-04-11] MEDS: PANTOPRAZOLE SODIUM IV 40 MG VIAL IV PUSH ×2 (07:55→20:16)
[2023-04-11] MEDS: ANASTROZOLE (*CHEMO) 1 MG TABLET PO (07:55)
[2023-04-11] MEDS: FUROSEMIDE 20 MG TABLET BY MOUTH (07:55)
[2023-04-11] MEDS: MINERAL OIL/WHITE PETROLATUM OINTMENT 1 APPLIC EACH EYE ×2 (07:56→20:16)
[2023-04-11] MEDS: TOLNAFTATE 1% POWDER 45 GM BTL 1 APPLIC TOPICAL ×2 (07:56→20:17)
[2023-04-11 08:00] LABS: Anisocytosis 3+ (NORMAL); Macrocytosis 1+ (NORMAL); Microcytosis 2+ (NORMAL); Platelet Estimate Adequate (Adequate)
[2023-04-11 08:01] LABS: Hypochromasia 1+ (NORMAL); Schistocytes None Seen (NORMAL)
--- NOTE | 2023-04-11 08:54 | P.PNINT_ITS ---
Progress Note: A&P Assessment and Plan (1) Acute hypercapnic respiratory failure: Code(s): J96.02 - Acute respiratory failure with hypercapnia Status: Acute Assessment and Plan: 04/09/2023: Patient presented the ED from [facility] with complains of worsening shortness of breath, hypoxia. Upon arrival to the ED she was on 6 L nasal cannula with 93% O2 sats. Patient was placed on BiPAP, but continue get somnolent and lethargic so was intubated for airway protection -04/09: Intubated -Currently on CMV mode of ventilation, peep of 8,35% FiO2 -chest x-ray and ABGs reviewed, ventilator adjusted, -continue bronchodilators -continue propofol and fentanyl for sedation, maintain RASS of 0 to -2, daily sedation vacation -Chest x-ray this morning: There are minimal bilateral pleural effusions with probable minimal bibasilar pulmonary edema/atelectasis. Hazy airspace opacity left upper lobe again present.? -04/09: CT chest/abdomen/pelvis: Showed enlarging left apical pulmonary mass and right upper lobe nodule, concerning for malignancy, moderate bilateral pleural effusions, bilateral dependent consolidation may represent infection, aspiration could be considered. (2) Pneumonia: Code(s): J18.9 - Pneumonia, unspecified organism Status: Acute Assessment and Plan: Pneumonia as seen on CT scan as above -continue vancomycin and cefepime (04/09) -04/10/2023: Sputum cultures have been ordered (3) Pleural effusion: Code(s): J90 - Pleural effusion, not elsewhere classified Status: Acute Assessment and Plan: Patient has bilateral pleural effusions, continue peep of 8 -if pleural effusions do not resolve, may need thoracentesis (4) Atrial fibrillation: Qualifiers: Atrial fibrillation type: unspecified Qualified Code(s): I48.91 - Unspecified atrial fibrillation Code(s): I48.91 - Unspecified atrial fibrillation Status: Acute Assessment and Plan: History of atrial fibrillation, hemodynamically stable, heart rates in the 100s -04/10 evening patient went to [facility], started on amiodarone bolus and infusion -heart rates much better this morning, continue metoprolol per tube -will continue to monitor the heart rate and blood pressures (5) Cancer of left lung: Code(s): C34.92 - Malignant neoplasm of unspecified part of left bronchus or lung Status: Acute Assessment and Plan: History of left lung malignancy, -follows Dr. Infante -last chemotherapy was on 03/29/2023 (6) Cancer of right breast: Code(s): C50.911 - Malignant neoplasm of unspecified site of right female breast Status: Acute Assessment and Plan: -continue anastrozole (7) CHF (congestive heart failure): Qualifiers: Heart failure chronicity: unspecified Heart failure type: unspecified Qualified Code(s): I50.9 - Heart failure, unspecified Code(s): I50.9 - Heart failure, unspecified Status: Acute Assessment and Plan: 02/06/2023 echocardiogram:? 1. Left ventricular chamber dimension is normal. ? 2. Left ventricular systolic function is normal, estimated at 65-70%. ? 3. There is mildly increased left ventricular wall thickness. ? 4. The left ventricular diastolic function is indeterminate. ? 5. Right ventricular chamber dimension is mildly enlarged. ? 6. Left atrial chamber dimension is severely enlarged. ? 7. Right atrial chamber dimension is severely enlarged. ? 8. There is mild to moderate aortic valve regurgitation. ? 9. There is mild aortic valve calcification. ? 10. Th
[2023-04-11 12:03] LABS: Glucose Point of Care 132 mg/dl (65-105)
--- NOTE | 2023-04-11 15:04 | PM.IMPN ---
Progress Note: A&P Assessment and Plan (1) Acute hypercapnic respiratory failure: Code(s): J96.02 - Acute respiratory failure with hypercapnia Status: Acute Assessment and Plan: 04/09/2023: Patient presented the ED from [facility] with complains of worsening shortness of breath, hypoxia. Upon arrival to the ED she was on 6 L nasal cannula with 93% O2 sats. Patient was placed on BiPAP, but continue get somnolent and lethargic so was intubated for airway protection -04/09: Intubated -Currently on CMV mode of ventilation, peep of 8,35% FiO2 -chest x-ray and ABGs reviewed, ventilator adjusted, -continue bronchodilators -continue propofol and fentanyl for sedation, maintain RASS of 0 to -2, daily sedation vacation -Chest x-ray this morning: There are minimal bilateral pleural effusions with probable minimal bibasilar pulmonary edema/atelectasis. Hazy airspace opacity left upper lobe again present.? -04/09: CT chest/abdomen/pelvis: Showed enlarging left apical pulmonary mass and right upper lobe nodule, concerning for malignancy, moderate bilateral pleural effusions, bilateral dependent consolidation may represent infection, aspiration could be considered. (2) Pneumonia: Code(s): J18.9 - Pneumonia, unspecified organism Status: Acute Assessment and Plan: Pneumonia as seen on CT scan as above -continue vancomycin and cefepime (04/09) -04/10/2023: Sputum cultures have been ordered (3) Pleural effusion: Code(s): J90 - Pleural effusion, not elsewhere classified Status: Acute Assessment and Plan: Patient has bilateral pleural effusions, continue peep of 8 -if pleural effusions do not resolve, may need thoracentesis (4) Atrial fibrillation: Qualifiers: Atrial fibrillation type: unspecified Qualified Code(s): I48.91 - Unspecified atrial fibrillation Code(s): I48.91 - Unspecified atrial fibrillation Status: Acute Assessment and Plan: History of atrial fibrillation, hemodynamically stable, heart rates in the 100s -04/10 evening patient went to [facility], started on amiodarone bolus and infusion -heart rates much better this morning, continue metoprolol per tube -will continue to monitor the heart rate and blood pressures (5) Cancer of left lung: Code(s): C34.92 - Malignant neoplasm of unspecified part of left bronchus or lung Status: Acute Assessment and Plan: History of left lung malignancy, -follows Dr. Infante -last chemotherapy was on 03/29/2023 (6) Cancer of right breast: Code(s): C50.911 - Malignant neoplasm of unspecified site of right female breast Status: Acute Assessment and Plan: -continue anastrozole (7) CHF (congestive heart failure): Qualifiers: Heart failure type: unspecified Heart failure chronicity: unspecified Qualified Code(s): I50.9 - Heart failure, unspecified Code(s): I50.9 - Heart failure, unspecified Status: Acute Assessment and Plan: 02/06/2023 echocardiogram:? 1. Left ventricular chamber dimension is normal. ? 2. Left ventricular systolic function is normal, estimated at 65-70%. ? 3. There is mildly increased left ventricular wall thickness. ? 4. The left ventricular diastolic function is indeterminate. ? 5. Right ventricular chamber dimension is mildly enlarged. ? 6. Left atrial chamber dimension is severely enlarged. ? 7. Right atrial chamber dimension is severely enlarged. ? 8. There is mild to moderate aortic valve regurgitation. ? 9. There is mild aortic valve calcification. ? 10. There is mild to moderate mitral valve regurgitation. ? 11. There is moderate to severe tricuspid valve regurgitation. ? 12. Severe pulmonary hypertension, estimated pulmonary arterial systolic pressure is 79 mmHg. ? 13. There is mild to moderate pulmonic regurgitation. (8) Thrombocytopenia: Code(s): D69.6 - Thrombocytopenia, unspecified Statu
[2023-04-11] MEDS: RIVAROXABAN 20 MG TABLET PO (18:03)
[2023-04-11 18:19] LABS: Glucose Point of Care 170 mg/dl (65-105)
[2023-04-11] MEDS: FENTANYL 2,500MCG/NS250ML(*CRX 2,500 MCG/250 ML BAG 7.5 MCG IV CONT (22:28)
[2023-04-11] MEDS: PROPOFOL IV EMULSION 100 ML 24 MG IV CONT (22:52)
[2023-04-11 23:54] LABS: Glucose Point of Care 136 mg/dl (65-105)
[2023-04-12] VITALS (59 sets, daily range): BP systolic 96–123; BP diastolic 59–81; PULSE 75–121; RESP 18–26; TEMP 37.7–38.1; O2SAT 92–97
[2023-04-12] MEDS: LEVALBUTEROL NEB 1.25 MG/3 ML 0.63 MG INHALATION ×4 (01:09→20:50)
[2023-04-12] MEDS: IPRATROPIUM BR 0.02% INH SOLN 0.5 MG/2.5 ML VIAL INHALATION ×4 (01:10→20:50)
[2023-04-12] MEDS: PROPOFOL IV EMULSION 100 ML 24 MG IV CONT (02:23)
[2023-04-12] MEDS: AMIODARONE 360 MG/D5W 200 ML 360 MG/200 ML BAG 16.67 MG IV CONT ×2 (03:20→14:54)
[2023-04-12] MEDS: VANCOMYCIN 1,500 MG/NS 500 ML 1,500 MG/500 ML BAG 250 MG IVPB (03:21)
[2023-04-12 04:31] LABS: Basophils Percent Auto 0.5 % (0.2-1.2); Eosinophils Absolute Auto 0.2 K/mm3 (0-0.3); Eosinophils Percent Auto 3.2 % (0-4.4); Hematocrit 30.3 % (37.0-47.0); Hemoglobin 9.2 g/dL (12.0-15.0); Immature Granulocyte Percent A 3.5 % (0-0.5); Lymphocytes Absolute Auto 0.54 K/mm3 (0.9-3.2); Lymphocytes Percent Auto 9.6 % (18.3-44.2); Mean Corpuscular HGB Conc 30.4 g/dl (32-36); Mean Corpuscular Hemoglobin 34.6 pg (26-34); Mean Corpuscular Volume 113.9 fl (80-100); Mean Platelet Volume 9.8 fl (7.4-10.4); Monocytes Absolute Auto 1.1 K/mm3 (0.1-0.6); Monocytes Percent Auto 19.8 % (2.6-8.5); Neutrophils Absolute Auto 3.6 K/mm3 (1.3-6.7); Neutrophils Percent Auto 63.4 % (45.5-73.1); Platelet Count Result 177 k/mm3 (150-375); Red Blood Count 2.66 M/mm3 (4.2-5.4); Red Cell Distribution Width 17.4 % (11.5-14.5); White Blood Count 5.7 K/mm3 (4.5-10.0)
[2023-04-12 04:40] LABS: Alanine Aminotransferase 19 U/L (6-35); Albumin Level 2.2 g/dL (3.5-5.1); Alkaline Phosphatase 85 U/L (38-126); Anion Gap 2 mmol/L (8-16); Aspartate Amino Transferase 21 U/L (14-36); Bilirubin,Total 0.8 mg/dL (0.2-1.3); Blood Urea Nitrogen 22 mg/dL (7-17); Calcium 8.2 mg/dL (8.4-10.2); Carbon Dioxide 35 mmol/L (22-30); Chloride 99 mmol/L (98-107); Estimated CRCL calculation 146 ml/min; Estimated Glomerular Filt Rate > 60; Glucose 137 mg/dL (65-110); Magnesium 1.7 mg/dL (1.6-2.3); Phosphorus 3.3 mg/dL (2.5-4.5); Potassium 3.7 mmol/L (3.4-5.0); Sodium 136 mmol/L (137-145)
[2023-04-12 04:41] LABS: INR 1.8; Prothrombin Time 21.7 Seconds (11.1-14.7)
[2023-04-12 04:42] LABS: Partial Thromboplastin Time 39.8 SECONDS (22.3-36.8)
[2023-04-12 05:07] LABS: Anisocytosis 1+ (NORMAL); Hypochromasia 1+ (NORMAL); Large Platelets Present; Ovalocytes 1+ (NORMAL); Platelet Estimate Adequate (Adequate); Schistocytes None Seen (NORMAL)
[2023-04-12 05:16] LABS: Carboxyhemoglobin 0.3 % THb (0-2.0); Fractional Inspired Oxygen 35 %; HCO3 ABG 33.5 mEq/l (22.0-26.0); Methemoglobin ABG 0.2 %THb (0-1.5); Oxygen Content ABG 14.3 %vol (16.0-22.0); Oxygen Saturation ABG 93.9 % (95.0-100.0); Oxyhemoglobin 92.1 % THb (90.0-100.0); PCO2 ABG 51.1 mmHg (35.0-45.0); PO2 ABG 68.1 mmHg (80.0-100.0); PO2 FiO2 Ratio Arterial Blood 1.95 %; Reduced Hemoglobin 7.4 %THb (0-5.0); pH ABG 7.434 (7.350-7.450)
[2023-04-12 05:17] LABS: Device VENTILATOR; Modified Allen's Test Pass; Site Drawn LEFT RADIAL
[2023-04-12 05:18] LABS: Arterial Blood Gas PEEP 8 cmH2O; Arterial Blood Gas Tidal Volume 350 ml; Arterial Blood Gas Vent Mode CMV; Arterial Blood Gas Ventilator rate 20 /MIN
[2023-04-12] MEDS: CEFEPIME 2 GM/NS 50 ML 2 GM/50 ML BAG IVPB ×3 (05:33→20:35)
[2023-04-12] MEDS: METOPROLOL TARTRATE 50 MG TAB PO ×4 (05:34→23:01)
[2023-04-12] MEDS: CENTRAL LINE FLUSH 10 ML IV PUSH ×3 (05:34→20:35)
[2023-04-12] MEDS: LEVOTHYROXINE SODIUM 88 MCG TABLET PO (05:34)
[2023-04-12] MEDS: PROPOFOL IV EMULSION 100 ML 28.8 MG IV CONT (06:06)
[2023-04-12] MEDS: PANTOPRAZOLE SODIUM IV 40 MG VIAL IV PUSH ×2 (08:18→20:34)
[2023-04-12] MEDS: TOLNAFTATE 1% POWDER 45 GM BTL 1 APPLIC TOPICAL ×2 (08:18→20:32)
[2023-04-12] MEDS: CHOLECALCIFEROL 1,000 UNITS TABLET 2000 UNITS PO (08:18)
[2023-04-12] MEDS: FUROSEMIDE INJ 40 MG/4 ML VIAL IV PUSH (08:18)
[2023-04-12] MEDS: ANASTROZOLE (*CHEMO) 1 MG TABLET PO (08:18)
[2023-04-12] MEDS: MINERAL OIL/WHITE PETROLATUM OINTMENT 1 APPLIC EACH EYE ×2 (08:18→20:32)
[2023-04-12] MEDS: ACETAMINOPHEN 325 MG TABLET 650 MG PO (08:18)
[2023-04-12] MEDS: PROPOFOL IV EMULSION 100 ML 33.6 MG IV CONT (09:00)
--- NOTE | 2023-04-12 09:03 | WPDINTPN ---
Progress Note: A&P Assessment and Plan (1) Acute hypercapnic respiratory failure: Code(s): J96.02 - Acute respiratory failure with hypercapnia Status: Acute Assessment and Plan: 04/09/2023: Patient presented the ED from [facility] with complains of worsening shortness of breath, hypoxia. Upon arrival to the ED she was on 6 L nasal cannula with 93% O2 sats. Patient was placed on BiPAP, but continue get somnolent and lethargic so was intubated for airway protection -04/09: Intubated -Currently on CMV mode of ventilation, peep of 8,35% FiO2 -chest x-ray and ABGs reviewed, ventilator adjusted, -continue bronchodilators -continue propofol and fentanyl for sedation, maintain RASS of 0 to -2, daily sedation vacation -Chest x-ray this morning: [id number] pleural effusions with bibasilar pulmonary edema/atelectasis. Stable left upper lobe mass. Will diurese with Lasix 40 mg IV x1 today -04/09: CT chest/abdomen/pelvis: Showed enlarging left apical pulmonary mass and right upper lobe nodule, concerning for malignancy, moderate bilateral pleural effusions, bilateral dependent consolidation may represent infection, aspiration could be considered. (2) Pneumonia: Code(s): J18.9 - Pneumonia, unspecified organism Status: Acute Assessment and Plan: Pneumonia as seen on CT scan as above -continue vancomycin and cefepime (04/09) -04/10/2023: Sputum cultures: No growth (3) Pleural effusion: Code(s): J90 - Pleural effusion, not elsewhere classified Status: Acute Assessment and Plan: Patient has bilateral pleural effusions, continue peep of 8 -will diurese today, if pleural effusions on improve, may require thoracentesis (4) Atrial fibrillation: Qualifiers: Atrial fibrillation type: unspecified Qualified Code(s): I48.91 - Unspecified atrial fibrillation Code(s): I48.91 - Unspecified atrial fibrillation Status: Acute Assessment and Plan: History of atrial fibrillation, hemodynamically stable, heart rates in the 100s -04/10 evening patient went to [facility], started on amiodarone bolus and infusion -heart rates much better this morning, continue metoprolol per tube -start home cardia -will continue to monitor the heart rate and blood pressures (5) Cancer of left lung: Code(s): C34.92 - Malignant neoplasm of unspecified part of left bronchus or lung Status: Acute Assessment and Plan: History of left lung malignancy, -follows Dr. Infante -last chemotherapy was on 03/29/2023 (6) Cancer of right breast: Code(s): C50.911 - Malignant neoplasm of unspecified site of right female breast Status: Acute Assessment and Plan: -continue anastrozole (7) CHF (congestive heart failure): Qualifiers: Heart failure type: unspecified Heart failure chronicity: unspecified Qualified Code(s): I50.9 - Heart failure, unspecified Code(s): I50.9 - Heart failure, unspecified Status: Acute Assessment and Plan: 02/06/2023 echocardiogram:? 1. Left ventricular chamber dimension is normal. ? 2. Left ventricular systolic function is normal, estimated at 65-70%. ? 3. There is mildly increased left ventricular wall thickness. ? 4. The left ventricular diastolic function is indeterminate. ? 5. Right ventricular chamber dimension is mildly enlarged. ? 6. Left atrial chamber dimension is severely enlarged. ? 7. Right atrial chamber dimension is severely enlarged. ? 8. There is mild to moderate aortic valve regurgitation. ? 9. There is mild aortic valve calcification. ? 10. There is mild to moderate mitral valve regurgitation. ? 11. There is moderate to severe tricuspid valve regurgitation. ? 12. Severe pulmonary hypertension, estimated pulmonary arterial systolic pressure is 79 mmHg. ? 13. There is mild to moderate pulmonic regurgitation. (8) Thrombocytopenia: Code(s): D69.6 - Thrombocyt
[2023-04-12] MEDS: dilTIAZem HCL 60 MG TABLET FEED TUBE ×3 (10:34→20:34)
--- NOTE | 2023-04-12 11:10 | PCFNICU ---
ICU Rounding Note: Pt current nutrition is Glucerna 1.2 at 70 ml/hr. Nutrition recommendation: Decrease tube feedings to 50 ml/hr. Last recorded weight is 168 kg, up from 163.4 kg on admit. Bowel Motility:+BM reported 1/2 Labs Reviewed:Glu 137, BUN 22, Cr 0.5,Na 136, Alb 2.2 Meds Noted:Propofol 35 mcgs, Vancomycin, Fentanyl,Lasix Skin:WNL Additional Notes:Patient current with mechanical vent. Tube feedings of Glucerna at 70 ml/hr (1848 kcals/92 gms protein.) tolerating per nursing. Propofol at 35 mcgs providing an additional 887 kcals. Would recommend to decrease tube feeding rate to 50 ml/hr due to overfeeding. Discussions in rounds regarding decreasing Propofol today and possible breathing trial. Will continue to monitor propofol infusion and tube feeding rates. Following daily in ICU rounds. Following for tube feeding tolerance, plan of care, labs, weights, medications, stool patterns. Follow up Tuesdays and Fridays.
[2023-04-12 11:20] LABS: Glucose Point of Care 164 mg/dl (65-105)
[2023-04-12] MEDS: dexmedeTOMIDine 400 MCG/100 ML 400 MCG/100 ML BAG 8.4 MCG IV CONT (14:55)
[2023-04-12 18:09] LABS: Glucose Point of Care 227 mg/dl (65-105)
[2023-04-12] MEDS: RIVAROXABAN 20 MG TABLET PO (18:10)
[2023-04-12] MEDS: oxyCODONE HCL (*CRX) 5 MG TAB IR PO (18:10)
[2023-04-12] MEDS: INSULIN ASPART (*BKC) 100 UNITS/ML SUB-Q (18:11)
[2023-04-12] MEDS: dexmedeTOMIDine 400 MCG/100 ML 400 MCG/100 ML BAG 21 MCG IV CONT (21:12)
[2023-04-12 23:09] LABS: Glucose Point of Care 190 mg/dl (65-105)
[2023-04-13] VITALS (35 sets, daily range): BP systolic 104–135; BP diastolic 51–78; PULSE 70–111; RESP 15–32; TEMP 37.4–38.1; O2SAT 91–100
[2023-04-13] MEDS: dexmedeTOMIDine 400 MCG/100 ML 400 MCG/100 ML BAG 21 MCG IV CONT (01:32)
[2023-04-13] MEDS: AMIODARONE 360 MG/D5W 200 ML 360 MG/200 ML BAG 16.67 MG IV CONT ×2 (02:16→15:12)
[2023-04-13] MEDS: IPRATROPIUM BR 0.02% INH SOLN 0.5 MG/2.5 ML VIAL INHALATION (02:40)
[2023-04-13] MEDS: LEVALBUTEROL NEB 1.25 MG/3 ML 0.63 MG INHALATION (02:40)
[2023-04-13 05:05] LABS: Alveolar/Arterial O2 Gradient 132.8 mmHg; Carboxyhemoglobin 0.4 % THb (0-2.0); Device VENTILATOR; Fractional Inspired Oxygen 35 %; HCO3 ABG 33.4 mEq/l (22.0-26.0); Methemoglobin ABG 0.1 %THb (0-1.5); Modified Allen's Test Pass; Oxygen Content ABG 15.3 %vol (16.0-22.0); Oxygen Saturation ABG 93.9 % (95.0-100.0); Oxyhemoglobin 91.8 % THb (90.0-100.0); PCO2 ABG 45.1 mmHg (35.0-45.0); PO2 ABG 64.3 mmHg (80.0-100.0); PO2 FiO2 Ratio Arterial Blood 1.84 %; Reduced Hemoglobin 7.7 %THb (0-5.0); Site Drawn RIGHT RADIAL; Total Hemoglobin 11.8 g/dL (12.0-18.0); pH ABG 7.488 (7.350-7.450)
[2023-04-13 05:06] LABS: Arterial Blood Gas PEEP 8 cmH2O; Arterial Blood Gas Tidal Volume 350 ml; Arterial Blood Gas Vent Mode CMV; Arterial Blood Gas Ventilator rate 20 /MIN
[2023-04-13] MEDS: METOPROLOL TARTRATE 50 MG TAB PO ×4 (05:14→23:51)
[2023-04-13] MEDS: LEVOTHYROXINE SODIUM 88 MCG TABLET PO (05:14)
[2023-04-13] MEDS: CEFEPIME 2 GM/NS 50 ML 2 GM/50 ML BAG IVPB ×3 (05:14→21:06)
[2023-04-13] MEDS: dilTIAZem HCL 60 MG TABLET FEED TUBE ×3 (05:14→21:40)
[2023-04-13] MEDS: CENTRAL LINE FLUSH 10 ML IV PUSH ×3 (05:15→21:37)
[2023-04-13 05:17] LABS: Basophils Percent Auto 0.3 % (0.2-1.2); Eosinophils Absolute Auto 0.1 K/mm3 (0-0.3); Eosinophils Percent Auto 0.8 % (0-4.4); Hematocrit 33.4 % (37.0-47.0); Hemoglobin 10.4 g/dL (12.0-15.0); Lymphocytes Absolute Auto 0.67 K/mm3 (0.9-3.2); Lymphocytes Percent Auto 6.7 % (18.3-44.2); Mean Corpuscular HGB Conc 31.1 g/dl (32-36); Mean Corpuscular Hemoglobin 34.9 pg (26-34); Mean Corpuscular Volume 112.1 fl (80-100); Mean Platelet Volume 10.8 fl (7.4-10.4); Monocytes Absolute Auto 1.6 K/mm3 (0.1-0.6); Monocytes Percent Auto 15.5 % (2.6-8.5); Neutrophils Absolute Auto 7.5 K/mm3 (1.3-6.7); Neutrophils Percent Auto 74.7 % (45.5-73.1); Platelet Count Result 245 k/mm3 (150-375); Red Blood Count 2.98 M/mm3 (4.2-5.4); Red Cell Distribution Width 17.4 % (11.5-14.5); White Blood Count 10.1 K/mm3 (4.5-10.0)
[2023-04-13 05:29] LABS: INR 1.8; Prothrombin Time 21.7 Seconds (11.1-14.7)
[2023-04-13 05:30] LABS: Partial Thromboplastin Time 43.1 SECONDS (22.3-36.8)
[2023-04-13 05:31] LABS: Alanine Aminotransferase 17 U/L (6-35); Albumin Level 2.5 g/dL (3.5-5.1); Alkaline Phosphatase 90 U/L (38-126); Anion Gap 4 mmol/L (8-16); Aspartate Amino Transferase 20 U/L (14-36); Bilirubin,Total 0.7 mg/dL (0.2-1.3); Blood Urea Nitrogen 21 mg/dL (7-17); Calcium 8.6 mg/dL (8.4-10.2); Carbon Dioxide 36 mmol/L (22-30); Chloride 95 mmol/L (98-107); Estimated CRCL calculation 150 ml/min; Estimated Glomerular Filt Rate > 60; Glucose 198 mg/dL (65-110); Phosphorus 2.8 mg/dL (2.5-4.5); Potassium 3.5 mmol/L (3.4-5.0); Sodium 135 mmol/L (137-145); Triglycerides 109 mg/dL (<150)
[2023-04-13 05:40] LABS: Anisocytosis 1+ (NORMAL); Platelet Estimate Adequate (Adequate); Polychromasia 1+ (NORMAL)
[2023-04-13 05:41] LABS: Schistocytes None Seen (NORMAL)
[2023-04-13] MEDS: dexmedeTOMIDine 400 MCG/100 ML 400 MCG/100 ML BAG 25.2 MCG IV CONT (05:51)
[2023-04-13] MEDS: FUROSEMIDE INJ 40 MG/4 ML VIAL IV PUSH (07:59)
[2023-04-13] MEDS: PANTOPRAZOLE SODIUM IV 40 MG VIAL IV PUSH ×2 (07:59→21:06)
[2023-04-13] MEDS: POTASSIUM CHLORIDE 20 MEQ PACKET (FOR LIQUID) 40 MEQ FEED TUBE (07:59)
[2023-04-13] MEDS: CHOLECALCIFEROL 1,000 UNITS TABLET 2000 UNITS PO (07:59)
[2023-04-13] MEDS: ANASTROZOLE (*CHEMO) 1 MG TABLET PO (07:59)
[2023-04-13] MEDS: MINERAL OIL/WHITE PETROLATUM OINTMENT 1 APPLIC EACH EYE (07:59)
[2023-04-13] MEDS: TOLNAFTATE 1% POWDER 45 GM BTL 1 APPLIC TOPICAL ×2 (08:00→21:07)
--- NOTE | 2023-04-13 08:16 | WPDINTPN ---
Progress Note: A&P Assessment and Plan (1) Acute hypercapnic respiratory failure: Code(s): J96.02 - Acute respiratory failure with hypercapnia Status: Acute Assessment and Plan: 04/09/2023: Patient presented the ED from [facility] with complains of worsening shortness of breath, hypoxia. Upon arrival to the ED she was on 6 L nasal cannula with 93% O2 sats. Patient was placed on BiPAP, but continue get somnolent and lethargic so was intubated for airway protection -04/09: Intubated -Currently on CMV mode of ventilation, peep of 8,35% FiO2 -chest x-ray and ABGs reviewed, decreased ventilator to 18 -continue bronchodilators -decreased Precedex -will attempt a weaning trial -continue Lasix 40 mg IV x1 again today -04/09: CT chest/abdomen/pelvis: Showed enlarging left apical pulmonary mass and right upper lobe nodule, concerning for malignancy, moderate bilateral pleural effusions, bilateral dependent consolidation may represent infection, aspiration could be considered. (2) Pneumonia: Code(s): J18.9 - Pneumonia, unspecified organism Status: Acute Assessment and Plan: Pneumonia as seen on CT scan as above -continue cefepime (04/09). Vancomycin discontinued -04/10/2023: Blood and sputum cultures: No growth (3) Pleural effusion: Code(s): J90 - Pleural effusion, not elsewhere classified Status: Acute Assessment and Plan: Patient has bilateral pleural effusions, continue peep of 8 -will diurese again today, if pleural effusions on improve, may require thoracentesis (4) Atrial fibrillation: Qualifiers: Atrial fibrillation type: unspecified Qualified Code(s): I48.91 - Unspecified atrial fibrillation Code(s): I48.91 - Unspecified atrial fibrillation Status: Acute Assessment and Plan: History of atrial fibrillation, hemodynamically stable, heart rates in the 100s -04/10 evening [facility], started on amiodarone bolus and infusion -heart rates much better this morning, continue metoprolol and diltiazem per tube -will continue to monitor the heart rate and blood pressures (5) Cancer of left lung: Code(s): C34.92 - Malignant neoplasm of unspecified part of left bronchus or lung Status: Acute Assessment and Plan: History of left lung malignancy, -follows Dr. Infante -last chemotherapy was on 03/29/2023 (6) Cancer of right breast: Code(s): C50.911 - Malignant neoplasm of unspecified site of right female breast Status: Acute Assessment and Plan: -continue anastrozole (7) CHF (congestive heart failure): Qualifiers: Heart failure type: unspecified Heart failure chronicity: unspecified Qualified Code(s): I50.9 - Heart failure, unspecified Code(s): I50.9 - Heart failure, unspecified Status: Acute Assessment and Plan: Lasix IV today 02/06/2023 echocardiogram:? 1. Left ventricular chamber dimension is normal. ? 2. Left ventricular systolic function is normal, estimated at 65-70%. ? 3. There is mildly increased left ventricular wall thickness. ? 4. The left ventricular diastolic function is indeterminate. ? 5. Right ventricular chamber dimension is mildly enlarged. ? 6. Left atrial chamber dimension is severely enlarged. ? 7. Right atrial chamber dimension is severely enlarged. ? 8. There is mild to moderate aortic valve regurgitation. ? 9. There is mild aortic valve calcification. ? 10. There is mild to moderate mitral valve regurgitation. ? 11. There is moderate to severe tricuspid valve regurgitation. ? 12. Severe pulmonary hypertension, estimated pulmonary arterial systolic pressure is 79 mmHg. ? 13. There is mild to moderate pulmonic regurgitation. (8) Thrombocytopenia: Code(s): D69.6 - Thrombocytopenia, unspecified Status: Acute Assessment and Plan: Likely related to chemotherapy that he received on 03/29/2023, could be related
[2023-04-13 09:31] LABS: Alveolar/Arterial O2 Gradient 126.7 mmHg; Base Excess ABG 10.2 mEq/l (+/-2.0); Fractional Inspired Oxygen 35 %; HCO3 ABG 35.5 mEq/l (22.0-26.0); Oxygen Content ABG 16.2 %vol (16.0-22.0); Oxygen Saturation ABG 93.3 % (95.0-100.0); Oxyhemoglobin 91.4 % THb (90.0-100.0); PCO2 ABG 50.5 mmHg (35.0-45.0); PO2 ABG 64.1 mmHg (80.0-100.0); PO2 FiO2 Ratio Arterial Blood 1.83 %; Total Hemoglobin 12.6 g/dL (12.0-18.0); pH ABG 7.465 (7.350-7.450)
[2023-04-13 09:34] LABS: Device VENTILATOR; Modified Allen's Test Pass; Site Drawn LEFT RADIAL
[2023-04-13 09:36] LABS: Arterial Blood Gas PEEP 8 cmH2O; Arterial Blood Gas Vent Mode PRESSURE SUPPORT; Peak Inspiratory Pressure 5 cmH2O
--- NOTE | 2023-04-13 10:59 | PCFNICU ---
ICU Rounding Note: Pt current nutrition is NPO. Nutrition recommendation: advance diet as tolerated to Diabetic Consistent Carb per MD orders. Last recorded weight is 174.8 kg Bowel Motility:+BM reported 04/13 Labs Reviewed:Glu 198, Na 135, Alb 2.5 Meds Noted:Protonix, Vit D Skin: Deep Tissue-Right thigh Additional Notes: Patient is currently NPO. Extubated. When medically able recommend a diabetic consistent carb diet with Gab BID for wound healing. Following daily in ICU rounds. Following for tube feeding tolerance, plan of care, labs, weights, medications, stool patterns every 3 days.
[2023-04-13] MEDS: oxyCODONE HCL (*CRX) 5 MG TAB IR PO ×4 (11:13→23:51)
[2023-04-13 12:18] LABS: Glucose Point of Care 165 mg/dl (65-105)
[2023-04-13 16:54] LABS: Glucose Point of Care 167 mg/dl (65-105)
[2023-04-13] MEDS: RIVAROXABAN 20 MG TABLET PO (17:43)
--- NOTE | 2023-04-13 18:40 | PM.IMPN ---
Progress Note: A&P Assessment and Plan (1) Pneumonia: Code(s): J18.9 - Pneumonia, unspecified organism Status: Acute (2) Lung cancer: Code(s): C34.90 - Malignant neoplasm of unspecified part of unspecified bronchus or lung Status: Acute (3) Pleural effusion: Code(s): J90 - Pleural effusion, not elsewhere classified Status: Acute (4) Thrombocytopenia: Code(s): D69.6 - Thrombocytopenia, unspecified Status: Acute (5) Acute respiratory failure with hypoxia and hypercapnia: Code(s): J96.01 - Acute respiratory failure with hypoxia; J96.02 - Acute respiratory failure with hypercapnia Status: Acute Plan 67F w/ multiple medical comorbidities intubated on admission with hypoxic and hypercapnic respiratory failure on 04/09/23. extubated today on 04/13. she is on 3L NC and breathing well. continue bronchodilators. received another dose of lasix today. re-assess fluid status and pleural effusions again in AM. continue cefepime for HCAP. blood cultures NGTD. check procal in AM to assist in mgmt of abx. on amiodarone infusion, attempt to transition to PO in the morning. she would benefit from controller inhalers going home in light of her hypercapnia and smoking history + CPAP w/ pulm follow up cont to wean o2 and keep on telemetry. stable. Subjective Date/time seen: 04/13/23 18:40 Interval history: patient extubated, now on 3L NC. patiet denies any symptoms and reports good breathing with mild dry cough and itchy throat Review of Systems Review of Systems: All systems reviewed & are unremarkable except as noted in HPI and below (subjective) Exam Const: General: comfortable and no acute distress Eyes: Pupils: Equal, round and reactive pupils present Resp: Effort & Inspection: normal respiratory effort Other: difficult to assess due to body habitus Cardio: Rate: regular rate Rhythm: abnormal rhythm Heart sounds: no gallops, no murmurs and no rubs GI: GI Palp: Yes Soft to palpation and No Tenderness to palpation present (GI) Extrem: General: no edema Objective Data Vital Signs Vital Signs: Vital Signs - 24 hr 04/12/23 20:00 04/12/23 20:00 04/12/23 20:00 Temperature 100.6 F H Pulse Rate 88 88 Respiratory Rate 21 H 21 H Blood Pressure 109/75 Pulse Oximetry 94 95 Oxygen Delivery Mechanical Ventilation Oxygen Flow Rate Fraction of Inspired Oxygen 35 35 04/12/23 20:20 04/12/23 20:00 04/12/23 21:12 Temperature Pulse Rate 83 81 84 Respiratory Rate 22 H 21 H Blood Pressure Pulse Oximetry Oxygen Delivery Oxygen Flow Rate Fraction of Inspired Oxygen 04/12/23 21:12 04/12/23 20:55 04/12/23 20:57 Temperature Pulse Rate 86 93 93 Respiratory Rate 21 H 26 H Blood Pressure Pulse Oximetry 95 Oxygen Delivery Mechanical Ventilation Oxygen Flow Rate Fraction of Inspired Oxygen 35 04/12/23 22:00 04/12/23 22:00 04/12/23 22:16 Temperature 100.6 F H Pulse Rate 75 81 83 Respiratory Rate 20 20 Blood Pressure 96/59 L Pulse Oximetry 92 Oxygen Delivery Oxygen Flow Rate Fraction of Inspired Oxygen 04/12/23 23:01 04/13/23 00:00 04/13/23 00:00 Temperature 100.6 F H Pulse Rate 90 82 Respiratory Rate 18 Blood Pressure 109/71 Pulse Oximetry 96 Oxygen Delivery Oxygen Flow Rate Fraction of Inspired Oxygen 35 04/13/23 00:00 04/13/23 00:00 04/13/23 01:32 Temperature Pulse Rate 82 87 83 Respiratory Rate 18 20 Blood Pressure Pulse Oximetry 96 Oxygen Delivery Mechanical Ventilation Oxygen Flow Rate Fraction of Inspired Oxygen 35 04/13/23 01:32 04/13/23 02:16 04/13/23 02:16 Temperature Pulse Rate 83 77 77 Respiratory Rate 20 Blood Pressure 112/61 112/61 Pulse Oximetry Oxygen Delivery Oxygen Flow Rate Fraction of Inspired Oxygen 04/13/23 02:17 04/13/23 02:00 04/13/23 02:00 Temperature 100.4 F H Pulse Rate 86
[2023-04-13 21:47] LABS: Glucose Point of Care 163 mg/dl (65-105)
--- NOTE | 2023-04-13 21:52 | PC.NURSE ---
Cough noted post liquid PO intake. Discussed possible aspiration risk with patient and family. Reviewed precautions and plan of care for prevention. Both verbalized understanding.
[2023-04-13] MEDS: LORazepam INJ (*CRX) 2 MG/ML VIAL 1 MG IV PUSH (23:06)
[2023-04-14] VITALS (21 sets, daily range): BP systolic 115–135; BP diastolic 57–89; PULSE 65–118; RESP 14–25; TEMP 36.3–37.4; O2SAT 90–99; BMI 11.0
[2023-04-14] MEDS: AMIODARONE 360 MG/D5W 200 ML 360 MG/200 ML BAG 16.67 MG IV CONT (02:36)
[2023-04-14] MEDS: oxyCODONE HCL (*CRX) 5 MG TAB IR PO ×3 (04:45→22:07)
[2023-04-14 04:51] LABS: Basophils Absolute Auto 0.1 K/mm3 (0.0-0.1); Basophils Percent Auto 0.5 % (0.2-1.2); Eosinophils Absolute Auto 0.2 K/mm3 (0-0.3); Eosinophils Percent Auto 2.2 % (0-4.4); Hemoglobin 10.5 g/dL (12.0-15.0); Immature Granulocyte Absolute 0.39 K/mm3 (0.00-0.031); Lymphocytes Absolute Auto 0.64 K/mm3 (0.9-3.2); Lymphocytes Percent Auto 6.5 % (18.3-44.2); Mean Corpuscular HGB Conc 30.9 g/dl (32-36); Mean Corpuscular Hemoglobin 34.7 pg (26-34); Mean Corpuscular Volume 112.2 fl (80-100); Mean Platelet Volume 9.7 fl (7.4-10.4); Monocytes Absolute Auto 1.4 K/mm3 (0.1-0.6); Monocytes Percent Auto 14.4 % (2.6-8.5); Neutrophils Absolute Auto 7.1 K/mm3 (1.3-6.7); Neutrophils Percent Auto 72.4 % (45.5-73.1); Platelet Count Result 349 k/mm3 (150-375); Red Blood Count 3.03 M/mm3 (4.2-5.4); Red Cell Distribution Width 17.2 % (11.5-14.5); White Blood Count 9.8 K/mm3 (4.5-10.0)
[2023-04-14 05:09] LABS: Alanine Aminotransferase 18 U/L (6-35); Albumin Level 2.6 g/dL (3.5-5.1); Alkaline Phosphatase 79 U/L (38-126); Aspartate Amino Transferase 21 U/L (14-36); Bilirubin,Total 0.8 mg/dL (0.2-1.3); Blood Urea Nitrogen 19 mg/dL (7-17); Calcium 8.6 mg/dL (8.4-10.2); Carbon Dioxide > 40 mmol/L (22-30); Chloride 93 mmol/L (98-107); Estimated CRCL calculation 141 ml/min; Estimated Glomerular Filt Rate > 60; Glucose 145 mg/dL (65-110); Phosphorus 3.2 mg/dL (2.5-4.5); Potassium 3.2 mmol/L (3.4-5.0); Sodium 136 mmol/L (137-145)
[2023-04-14 05:29] LABS: INR 2.4; Prothrombin Time 27.9 Seconds (11.1-14.7)
[2023-04-14 05:30] LABS: Partial Thromboplastin Time 48.2 SECONDS (22.3-36.8)
[2023-04-14 05:35] LABS: Procalcitonin 0.1 ng/mL
[2023-04-14 05:55] LABS: Alveolar/Arterial O2 Gradient 107.1 mmHg; Base Excess ABG 12.1 mEq/l (+/-2.0); Carboxyhemoglobin 0.1 % THb (0-2.0); Fractional Inspired Oxygen 36 %; HCO3 ABG 39.6 mEq/l (22.0-26.0); Methemoglobin ABG 0.1 %THb (0-1.5); Oxygen Content ABG 15.6 %vol (16.0-22.0); Oxygen Saturation ABG 93.5 % (95.0-100.0); Oxyhemoglobin 92.7 % THb (90.0-100.0); PO2 ABG 71.2 mmHg (80.0-100.0); PO2 FiO2 Ratio Arterial Blood 1.98 %; Reduced Hemoglobin 7.1 %THb (0-5.0); Total Hemoglobin 11.9 g/dL (12.0-18.0); pH ABG 7.386 (7.350-7.450)
[2023-04-14 05:56] LABS: Device NASAL CANNULA; Modified Allen's Test Pass; PCO2 ABG 67.6 mmHg (35.0-45.0); Site Drawn RIGHT RADIAL
[2023-04-14 05:57] LABS: Anisocytosis 2+ (NORMAL); Hypochromasia 1+ (NORMAL); Microcytosis 1+ (NORMAL); Platelet Estimate Adequate (Adequate); Polychromasia 1+ (NORMAL); Schistocytes None Seen (NORMAL)
[2023-04-14] MEDS: LEVOTHYROXINE SODIUM 88 MCG TABLET PO (06:20)
[2023-04-14] MEDS: CEFEPIME 2 GM/NS 50 ML 2 GM/50 ML BAG IVPB ×3 (06:20→21:45)
[2023-04-14] MEDS: METOPROLOL TARTRATE 50 MG TAB PO ×3 (06:20→17:23)
[2023-04-14] MEDS: dilTIAZem HCL 60 MG TABLET FEED TUBE ×3 (06:20→21:45)
[2023-04-14] MEDS: CENTRAL LINE FLUSH 10 ML IV PUSH ×3 (06:21→22:08)
[2023-04-14 07:38] LABS: Glucose Point of Care 122 mg/dl (65-105)
--- NOTE | 2023-04-14 08:20 | WPDINTPN ---
Progress Note: A&P Assessment and Plan (1) Acute hypercapnic respiratory failure: Code(s): J96.02 - Acute respiratory failure with hypercapnia Status: Acute Assessment and Plan: 04/09/2023: Patient presented the ED from [facility] with complains of worsening shortness of breath, hypoxia. Upon arrival to the ED she was on 6 L nasal cannula with 93% O2 sats. Patient was placed on BiPAP, but continue get somnolent and lethargic so was intubated for airway protection -04/09: Intubated 04/13 extubated after a successful weaning trial Currently on nasal cannula Continue nippv p.r.n. and at night Continue Lasix -04/09: CT chest/abdomen/pelvis: Showed enlarging left apical pulmonary mass and right upper lobe nodule, concerning for malignancy, moderate bilateral pleural effusions, bilateral dependent consolidation may represent infection, aspiration could be considered. (2) Pneumonia: Code(s): J18.9 - Pneumonia, unspecified organism Status: Acute Assessment and Plan: Pneumonia as seen on CT scan as above -continue cefepime (04/09). Vancomycin discontinued -04/10/2023: Blood and sputum cultures: No growth (3) Pleural effusion: Code(s): J90 - Pleural effusion, not elsewhere classified Status: Acute Assessment and Plan: Patient has bilateral pleural effusions Continue diuretics (4) Atrial fibrillation: Qualifiers: Atrial fibrillation type: unspecified Qualified Code(s): I48.91 - Unspecified atrial fibrillation Code(s): I48.91 - Unspecified atrial fibrillation Status: Acute Assessment and Plan: History of atrial fibrillation, hemodynamically stable, heart rates in the 100s -04/10 evening patient went to [facility], started on amiodarone bolus and infusion -heart rates much better this morning, continue metoprolol and diltiazem per tube -DC amiodarone (5) Cancer of left lung: Code(s): C34.92 - Malignant neoplasm of unspecified part of left bronchus or lung Status: Acute Assessment and Plan: History of left lung malignancy, -follows Dr. Infante -last chemotherapy was on 03/29/2023 (6) Cancer of right breast: Code(s): C50.911 - Malignant neoplasm of unspecified site of right female breast Status: Acute Assessment and Plan: -continue anastrozole (7) CHF (congestive heart failure): Qualifiers: Heart failure type: unspecified Heart failure chronicity: unspecified Qualified Code(s): I50.9 - Heart failure, unspecified Code(s): I50.9 - Heart failure, unspecified Status: Acute Assessment and Plan: Lasix IV today 02/06/2023 echocardiogram:? 1. Left ventricular chamber dimension is normal. ? 2. Left ventricular systolic function is normal, estimated at 65-70%. ? 3. There is mildly increased left ventricular wall thickness. ? 4. The left ventricular diastolic function is indeterminate. ? 5. Right ventricular chamber dimension is mildly enlarged. ? 6. Left atrial chamber dimension is severely enlarged. ? 7. Right atrial chamber dimension is severely enlarged. ? 8. There is mild to moderate aortic valve regurgitation. ? 9. There is mild aortic valve calcification. ? 10. There is mild to moderate mitral valve regurgitation. ? 11. There is moderate to severe tricuspid valve regurgitation. ? 12. Severe pulmonary hypertension, estimated pulmonary arterial systolic pressure is 79 mmHg. ? 13. There is mild to moderate pulmonic regurgitation. (8) Thrombocytopenia: Code(s): D69.6 - Thrombocytopenia, unspecified Status: Acute Assessment and Plan: Likely related to chemotherapy that he received on 03/29/2023, could be related to infection -platelets have improved -continue to monitor (9) Type 2 diabetes mellitus with diabetic neuropathy: Qualifiers: Diabetes mellitus intermediate project manager insulin use: without care home use Qualified Code(s): E11.40 - Type 2
[2023-04-14] MEDS: ANASTROZOLE (*CHEMO) 1 MG TABLET PO (08:31)
[2023-04-14] MEDS: PANTOPRAZOLE SODIUM IV 40 MG VIAL IV PUSH (08:31)
[2023-04-14] MEDS: CHOLECALCIFEROL 1,000 UNITS TABLET 2000 UNITS PO (08:31)
[2023-04-14] MEDS: KCL 40 MEQ/WATER 100 ML 100 ML 25 ML IVPB (08:32)
[2023-04-14] MEDS: POTASSIUM CHLORIDE 20 MEQ PACKET (FOR LIQUID) 40 MEQ PO (08:33)
[2023-04-14] MEDS: TOLNAFTATE 1% POWDER 45 GM BTL 1 APPLIC TOPICAL ×2 (08:42→21:00)
[2023-04-14] MEDS: LEVALBUTEROL NEB 1.25 MG/3 ML 0.63 MG INHALATION (10:01)
[2023-04-14] MEDS: IPRATROPIUM BR 0.02% INH SOLN 0.5 MG/2.5 ML VIAL INHALATION (10:03)
--- NOTE | 2023-04-14 11:07 | PCNFU ---
Nutrition Follow-Up Complete: Increased protein energy needs related to mechanical ventilation as evidenced by need for full tube feeding goal: Meet estimated protein energy needs Patient is progressing towards goal. We will continue current goal. Pt current nutrition is DB. Nutrition recommendation: Glucerna shakes BID Last recorded weight is 160.7 kg. Bowel Motility:+BM reported / Labs Reviewed:Glu 145, Cr 0.5,BUN 19, K 3.2,Alb 2.6,Hct 35.2,Hgb 10.5 Meds Noted:Vit D, Protonix, Synthroid. Skin: Deep Tissue-right thigh Additional Notes: Patient diet has been upgraded to [facility] diet. Oral Intake about 10% for breakfast. Recommend Glucerna shakes BID for additional 220 kcals and 10 gms protein. Agree with diet orders. Following for tube feeding tolerance, plan of care, labs, weights, medications, stool patterns every 5 days.
[2023-04-14] MEDS: FUROSEMIDE INJ 40 MG/4 ML VIAL IV PUSH ×2 (12:33→18:29)
[2023-04-14 13:04] LABS: Glucose Point of Care 160 mg/dl (65-105)
[2023-04-14 16:16] LABS: Glucose Point of Care 157 mg/dl (65-105)
[2023-04-14] MEDS: RIVAROXABAN 20 MG TABLET PO (17:23)
[2023-04-14] MEDS: ACETAMINOPHEN 325 MG TABLET 650 MG PO (17:24)
--- NOTE | 2023-04-14 18:07 | PM.IMPN ---
Progress Note: A&P Assessment and Plan (1) Hypokalemia: Code(s): E87.6 - Hypokalemia Status: Acute (2) Pneumonia: Code(s): J18.9 - Pneumonia, unspecified organism Status: Acute (3) Lung cancer: Code(s): C34.90 - Malignant neoplasm of unspecified part of unspecified bronchus or lung Status: Acute (4) Pleural effusion: Code(s): J90 - Pleural effusion, not elsewhere classified Status: Acute (5) Acute respiratory failure with hypoxia and hypercapnia: Code(s): J96.01 - Acute respiratory failure with hypoxia; J96.02 - Acute respiratory failure with hypercapnia Status: Acute (6) Atrial fibrillation with RVR: Code(s): I48.91 - Unspecified atrial fibrillation Status: Acute Plan Since extubation, the patient has been doing well. Although, this AM 04/14 her PCO2 was elevated again. Will start lasix 40mg iv BID as she still appears to have pulmonary edema. As well, she is to cont to wear NIV at night. She is on high doses of cardizem and metoprolol and her HR varies between 90's and 120's. Amiodarone IV has since been dc'ed but was working well. Starting amiodarone 200mg po qday. If still not controlled in the AM, cardiology consult is appropriate. Cont cefepime for PNA. The patient is DNR, hospice consult has been placed. The patient has been considering this recently considering her multiple admission, lung cancer and other comorbidities. Subjective Date/time seen: 04/14/23 18:07 Interval history: naoe. patient has no complaints. Review of Systems Review of Systems: All systems reviewed & are unremarkable except as noted in HPI and below (subjective) Exam Const: General: comfortable and no acute distress Eyes: Pupils: Equal, round and reactive pupils present Neck: Neck: supple Resp: Effort & Inspection: normal respiratory effort Auscultation: clear to auscultation bilaterally Cardio: Rate: tachycardic Rhythm: abnormal rhythm GI: GI Palp: Yes Soft to palpation and No Tenderness to palpation present (GI) Extrem: General: no edema Objective Data Vital Signs Vital Signs: Vital Signs - 24 hr 04/13/23 20:00 04/13/23 20:00 01/04/24 20:00 Temperature 99.6 F Pulse Rate 102 H 86 Respiratory Rate 21 H Blood Pressure 131/74 Pulse Oximetry 91 91 Oxygen Delivery Nasal Cannula Oxygen Flow Rate 2 Fraction of Inspired Oxygen 04/13/23 22:00 04/13/23 22:00 04/13/23 23:51 Temperature 99.4 F Pulse Rate 107 H 107 H 110 H Respiratory Rate 20 Blood Pressure 129/67 Pulse Oximetry 92 Oxygen Delivery Oxygen Flow Rate Fraction of Inspired Oxygen 04/14/23 00:00 04/14/23 00:00 04/14/23 00:00 Temperature 99.1 F Pulse Rate 111 H 85 Respiratory Rate 19 Blood Pressure 131/60 Pulse Oximetry 94 94 Oxygen Delivery Nasal Cannula Oxygen Flow Rate 4 Fraction of Inspired Oxygen 04/13/23 23:45 04/14/23 02:36 04/14/23 02:00 Temperature Pulse Rate 111 H 104 H 97 Respiratory Rate 32 H Blood Pressure 118/74 Pulse Oximetry 93 Oxygen Delivery BiPAP Oxygen Flow Rate Fraction of Inspired Oxygen 04/14/23 02:00 04/14/23 04:00 04/14/23 04:00 Temperature 99.3 F 99 F Pulse Rate 97 102 H 101 H Respiratory Rate 16 20 Blood Pressure 118/74 120/68 Pulse Oximetry 94 98 Oxygen Delivery Oxygen Flow Rate Fraction of Inspired Oxygen 04/14/23 04:00 04/14/23 06:20 04/14/23 06:00 Temperature Pulse Rate 109 H 94 Respiratory Rate Blood Pressure Pulse Oximetry 95 Oxygen Delivery BiPAP Oxygen Flow Rate Fraction of Inspired Oxygen 40 04/14/23 06:00 04/14/23 07:43 04/14/23 10:03 Temperature 98.7 F 98.7 F Pulse Rate 94 100 107 H Respiratory Rate 17 20 16 Blood Pressure 135/66 127/68 Pulse Oximetry 95 93 Oxygen Delivery Oxygen Flow Rate Fraction of Inspired Oxygen 04/14/23 10:10 04/14/23 10:13 04/14/23 08:00 Temperature Pul
[2023-04-14 18:57] LABS: Blood Urea Nitrogen 21 mg/dL (7-17); Calcium 8.6 mg/dL (8.4-10.2); Carbon Dioxide > 40 mmol/L (22-30); Chloride 93 mmol/L (98-107); Estimated CRCL calculation 120 ml/min; Estimated Glomerular Filt Rate > 60; Glucose 195 mg/dL (65-110); Magnesium 1.9 mg/dL (1.6-2.3); Potassium 3.4 mmol/L (3.4-5.0); Sodium 137 mmol/L (137-145)
[2023-04-14 22:14] LABS: Glucose Point of Care 145 mg/dl (65-105)
[2023-04-15] VITALS (20 sets, daily range): BP systolic 120–152; BP diastolic 60–88; PULSE 95–120; RESP 15–25; TEMP 36.6–37.3; O2SAT 91–96
[2023-04-15] MEDS: METOPROLOL TARTRATE 50 MG TAB PO ×3 (00:48→12:48)
[2023-04-15 05:06] LABS: Alveolar/Arterial O2 Gradient 126.7 mmHg; Base Excess ABG 16.3 mEq/l (+/-2.0); Carboxyhemoglobin 0.2 % THb (0-2.0); Fractional Inspired Oxygen 40 %; Methemoglobin ABG 0.2 %THb (0-1.5); Oxygen Content ABG 15.7 %vol (16.0-22.0); PO2 ABG 77.4 mmHg (80.0-100.0); PO2 FiO2 Ratio Arterial Blood 1.94 %; Reduced Hemoglobin 5.6 %THb (0-5.0); Total Hemoglobin 11.8 g/dL (12.0-18.0); pH ABG 7.413 (7.350-7.450)
[2023-04-15 05:08] LABS: Device NON-INVASIVE VENT; Modified Allen's Test Pass; PCO2 ABG 70.5 mmHg (35.0-45.0); Site Drawn LEFT RADIAL
[2023-04-15 05:09] LABS: Non-Invasive Expiratory Pressure 8 CMH2O; Non-Invasive Inspiratory Pressure 12 CMH2O; Non-Invasive Vent Rate 4 /MIN
[2023-04-15] MEDS: dilTIAZem HCL 60 MG TABLET FEED TUBE (05:40)
[2023-04-15] MEDS: LEVOTHYROXINE SODIUM 88 MCG TABLET PO (05:40)
[2023-04-15] MEDS: CENTRAL LINE FLUSH 10 ML IV PUSH (05:40)
[2023-04-15] MEDS: CEFEPIME 2 GM/NS 50 ML 2 GM/50 ML BAG IVPB (05:41)
[2023-04-15 06:08] LABS: Basophils Percent Auto 0.5 % (0.2-1.2); Eosinophils Absolute Auto 0.3 K/mm3 (0-0.3); Eosinophils Percent Auto 3.3 % (0-4.4); Hematocrit 34.9 % (37.0-47.0); Hemoglobin 10.6 g/dL (12.0-15.0); Immature Granulocyte Absolute 0.23 K/mm3 (0.00-0.031); Immature Granulocyte Percent A 2.8 % (0-0.5); Lymphocytes Percent Auto 7.3 % (18.3-44.2); Mean Corpuscular HGB Conc 30.4 g/dl (32-36); Mean Corpuscular Hemoglobin 34.5 pg (26-34); Mean Corpuscular Volume 113.7 fl (80-100); Mean Platelet Volume 9.6 fl (7.4-10.4); Monocytes Absolute Auto 1.4 K/mm3 (0.1-0.6); Monocytes Percent Auto 16.8 % (2.6-8.5); Neutrophils Absolute Auto 5.7 K/mm3 (1.3-6.7); Neutrophils Percent Auto 69.3 % (45.5-73.1); Platelet Count Result 415 k/mm3 (150-375); Red Blood Count 3.07 M/mm3 (4.2-5.4); Red Cell Distribution Width 16.6 % (11.5-14.5); White Blood Count 8.2 K/mm3 (4.5-10.0)
[2023-04-15 06:19] LABS: INR 1.9
[2023-04-15 06:20] LABS: Partial Thromboplastin Time 42.2 SECONDS (22.3-36.8)
[2023-04-15 06:31] LABS: Alanine Aminotransferase 17 U/L (6-35); Albumin Level 2.8 g/dL (3.5-5.1); Alkaline Phosphatase 75 U/L (38-126); Aspartate Amino Transferase 19 U/L (14-36); Bilirubin,Total 0.8 mg/dL (0.2-1.3); Blood Urea Nitrogen 20 mg/dL (7-17); Calcium 8.8 mg/dL (8.4-10.2); Carbon Dioxide > 40 mmol/L (22-30); Chloride 91 mmol/L (98-107); Estimated CRCL calculation 141 ml/min; Estimated Glomerular Filt Rate > 60; Glucose 142 mg/dL (65-110); Magnesium 2.1 mg/dL (1.6-2.3); Potassium 3.2 mmol/L (3.4-5.0); Sodium 137 mmol/L (137-145)
[2023-04-15] MEDS: TOLNAFTATE 1% POWDER 45 GM BTL 1 APPLIC TOPICAL (08:30)
[2023-04-15] MEDS: ANASTROZOLE (*CHEMO) 1 MG TABLET PO (08:30)
[2023-04-15] MEDS: FUROSEMIDE INJ 40 MG/4 ML VIAL IV PUSH (08:30)
[2023-04-15] MEDS: CHOLECALCIFEROL 1,000 UNITS TABLET 2000 UNITS PO (08:30)
[2023-04-15 09:12] LABS: Glucose Point of Care 153 mg/dl (65-105)
--- NOTE | 2023-04-15 11:35 | PM.IMPN ---
Progress Note: A&P Assessment and Plan (1) Pneumonia: Code(s): J18.9 - Pneumonia, unspecified organism Status: Acute (2) Acute respiratory failure with hypoxia and hypercapnia: Code(s): J96.01 - Acute respiratory failure with hypoxia; J96.02 - Acute respiratory failure with hypercapnia Status: Acute Plan 67F w/ PMH morbid obesity, paroxysmal a fib, HFpEF, CKD, HTN, sleep apnea, NIDDM, breast cancer, lung cancer, HLD, hypothyroidism presented with SOB. Admitted on 04/09/23. # acute hypercapnic respiratory failure - extubated 04/13. on 04/15 her PaCO2 creeps backs up to 70. She has been noncompliant with BIPAP. She is DNR, does not want resuscitation or intubation so she has been counseled on the appropriate use of the BIPAP. She agrees to wear it today 04/15 continuously. Repeat ABG in AM. - hospice consult pending # sleep apnea - cont BIPAP # acute decompensated HFpEF - cont lasix 40mg IV BID. she is still overloaded # HCAP - vanc discontinued. cont cefepime. blood and sputum cultures NGTD # pleural effusion - b/l. thoracentesis could be a consideration # a fib w/ RVR - now near controlled. HR in 110's. she was on amiodarone infusion but has since been stopped. starting amiodarone 100mg po qday. monitor TSH and LFT's in near future. pt agreeable after discussing risk vs benefit. - cont metoprolol at 50mg po QID and cardizem 180mg QAM - cont tele monitor - cont xarelto # HFpEF - acutely decompensated. cont lasix 40mg IV BID # malignant neoplasm of left lung - last chemo was 03/29/23 - follows with Dr. Infante - cont anastrozole # NIDDM - accuchecks and ISS # CKD - stable FEN: cardiac diabetic diet. saline lock IV GI prophylaxis: not indicated DVT prophylaxis: xarelto Lines: pIV. PICC left arm (remove 04/16), remove gutierrez 04/15 Code Status: DNR Dispo: guarded More than 35 minutes spent on chart review, patient interaction and assessment and plan. Subjective Date/time seen: 04/15/23 11:35 Interval history: NAOE. pt denies complaints, but she has many reasons why she did not want to wear the BIPAP last night. Review of Systems Review of Systems: All systems reviewed & are unremarkable except as noted in HPI and below (subjective) Exam Const: General: comfortable and no acute distress Eyes: Pupils: Equal, round and reactive pupils present Resp: Effort & Inspection: normal respiratory effort Auscultation: crackles Cardio: Rate: tachycardic Rhythm: abnormal rhythm Heart sounds: no gallops, no murmurs and no rubs GI: GI Palp: Yes Soft to palpation and No Tenderness to palpation present (GI) Extrem: General: edema Objective Data Vital Signs Vital Signs: Vital Signs - 24 hr 04/14/23 12:00 04/14/23 12:32 04/14/23 12:00 Temperature 98.3 F Pulse Rate 110 H 106 H Respiratory Rate 22 H Blood Pressure 133/89 Pulse Oximetry 93 95 Oxygen Delivery Nasal Cannula Oxygen Flow Rate 4 04/14/23 13:01 04/14/23 13:55 04/14/23 12:00 Temperature Pulse Rate 106 H 107 H Respiratory Rate 24 H Blood Pressure Pulse Oximetry 95 Oxygen Delivery BiPAP Nasal Cannula Oxygen Flow Rate 3 04/14/23 14:00 04/14/23 17:23 04/14/23 16:00 Temperature 97.3 F L Pulse Rate 103 H 118 H 65 Respiratory Rate 14 Blood Pressure 115/57 L Pulse Oximetry 99 Oxygen Delivery Oxygen Flow Rate 04/14/23 16:00 04/14/23 18:00 04/14/23 16:00 Temperature Pulse Rate 112 H 111 H Respiratory Rate Blood Pressure Pulse Oximetry 94 Oxygen Delivery Nasal Cannula Oxygen Flow Rate 4 04/14/23 18:00 04/14/23 20:00 04/14/23 20:00 Temperature 99.1 F Pulse Rate 111 H 105 H Respiratory Rate 25 H 22 H Blood Pressure 129/64 134/73 Pulse Oximetry 93 90 94 Oxygen Delivery Nasal Cannula Oxygen Flow Rate 4 04/15/23 00:48 04/14/23 20:00 04/14/23 22:00 Temperature Pulse Rate 105 H 107 H 106 H Respiratory Rate Blood Pressure
[2023-04-15 12:19] LABS: Glucose Point of Care 155 mg/dl (65-105)
--- NOTE | 2023-04-15 12:23 | PC.NURSE ---
This patient, Amanda Schultz, was transferred to [facility] via bed on 04/15/23 at 1100. Personal belongings sent with patient. Report given to MAX Oconnor Appropriate documentation sent with patient.
[2023-04-15] MEDS: dilTIAZem HCL CD 180 MG CAP.24HR PO (12:47)
[2023-04-15] MEDS: AMIODARONE HCL 100 MG TABLET PO (12:47)
--- NOTE | 2023-04-15 13:17 | PCPTNOTE ---
Attempted to see for PT evaluation, pt refused states she is too tired and does not want to get out of bed.
[2023-04-15] MEDS: MORPHINE SULFATE ORAL CONC SOL (*CRX) 10 MG/0.5 ML SYRINGE 5 MG PO ×2 (16:48→22:37)
[2023-04-15] MEDS: SCOPOLAMINE 1 MG PATCH 1 PATCH TRANSDERM (16:48)
--- NOTE | 2023-04-15 20:10 | PC.NURSE ---
Transfered from ICU3 via stretcher,belongings in hand.
[2023-04-15] MEDS: oxyCODONE HCL (*CRX) 5 MG TAB IR PO (20:59)
[2023-04-16] MEDS: LORazepam (*CRX) 1 MG TABLET PO ×2 (01:30→22:30)
[2023-04-16 06:00] VITALS: BP 156/78; PULSE 115; RESP 20; TEMP 36.5; O2SAT 97
[2023-04-16 08:00] VITALS: PULSE 115; RESP 20; O2SAT 97
--- NOTE | 2023-04-16 09:15 | PM.IMPN ---
Progress Note: A&P Assessment and Plan (1) Lung cancer: Code(s): C34.90 - Malignant neoplasm of unspecified part of unspecified bronchus or lung Status: Acute Plan Comfort care measures. The patient is content with her decision made yesterday for hospice. Will add oxycodone 10 mg q.4 hours scheduled at the patient's request for uncontrolled pain. Dispo pending with care coordination. Subjective Date/time seen: 04/16/23 09:15 Interval history: No acute overnight. The son is present in the room. The patient complains of uncontrolled pain in her abdomen and lower back. She does take scheduled oxycodone on at home. She requests for increased pain control. She has no other acute complaints. Review of Systems Review of Systems: All systems reviewed & are unremarkable except as noted in HPI and below (Subjective) Exam Const: General: comfortable and no acute distress Eyes: Pupils: Equal, round and reactive pupils present Resp: Effort & Inspection: normal respiratory effort Auscultation: clear to auscultation bilaterally Cardio: Rate: regular rate Rhythm: regular rhythm GI: GI Palp: Yes Soft to palpation and No Tenderness to palpation present (GI) Extrem: General: no edema Objective Data Vital Signs Vital Signs: Vital Signs - 24 hr 04/15/23 10:00 04/15/23 11:38 04/15/23 12:47 Temperature 98.3 F Pulse Rate 110 H 116 H 120 H Respiratory Rate 20 Blood Pressure 150/60 H Pulse Oximetry 96 Oxygen Delivery Oxygen Flow Rate Fraction of Inspired Oxygen 04/15/23 12:48 04/15/23 12:00 04/15/23 12:00 Temperature Pulse Rate 120 H 111 H 111 H Respiratory Rate 20 Blood Pressure Pulse Oximetry 96 Oxygen Delivery Nasal Cannula Oxygen Flow Rate 4 Fraction of Inspired Oxygen 40 04/15/23 14:00 04/15/23 16:00 04/15/23 16:00 Temperature Pulse Rate 99 107 H 99 Respiratory Rate 20 Blood Pressure Pulse Oximetry 96 Oxygen Delivery Nasal Cannula Oxygen Flow Rate 4 Fraction of Inspired Oxygen 40 04/15/23 18:00 04/15/23 20:00 04/15/23 20:00 Temperature 97.9 F Pulse Rate 113 H 112 H Respiratory Rate 22 H Blood Pressure 152/88 H Pulse Oximetry 92 93 Oxygen Delivery Nasal Cannula Oxygen Flow Rate 4 Fraction of Inspired Oxygen 04/16/23 06:00 Temperature 97.7 F Pulse Rate 115 H Respiratory Rate 20 Blood Pressure 156/78 H Pulse Oximetry 97 Oxygen Delivery Oxygen Flow Rate Fraction of Inspired Oxygen Intake/Output Intake/Output: Intake & Output 04/13/23 04/14/23 04/15/23 04/16/23 23:59 23:59 23:59 23:59 Intake Total 2234 890 900 300 Output Total 2450 3000 3300 425 Balance -216 -2110 -2400 -125 Meds/Results Medications: Active Medications Generic Name Dose Route Start Last Admin Trade Name Freq PRN Reason Stop Dose Admin Bisacodyl 5 mg 04/15/23 16:32 Bisacodyl 5 Mg Tablet Ec PO QAM PRN Constipation Lorazepam 1 mg 04/15/23 16:32 04/16/23 01:30 Lorazepam (*Crx) 1 Mg Tablet PO 1 mg Q1HR PRN Administration Anxiety Morphine Sulfate 5 mg 04/15/23 16:32 04/15/23 22:37 Morphine Sulfate Oral Conc Rachelle (*Crx) 10 Mg/0.5 Ml Syringe PO 5 mg Q1HR PRN Administration Pain Scopolamine 1 patch 04/15/23 16:32 04/15/23 16:48 Scopolamine 1 Mg Patch TRANSDERM 1 patch Q72HR PRN Administration secretions Radiology Results: ITS Impressions Abdomen X-Ray 04/09/23 14:08 IMPRESSION: NG tube side port at the GE junction, consider advancing 5 cm. Chest/Abdomen/Pelvis CT 04/09/23 14:31 IMPRESSION: Enlarging left apical pulmonary mass and right upper lobe nodule, concerning for malignancy. Moderate bilateral pleural effusions, the loculation suspected in the prior radiograph were secondary to artifact from the left apical mass and adjacent pleural effusion and lung consolidation. Bilateral dependent consolidation may represent infection. Aspiratio
[2023-04-16] MEDS: oxyCODONE HCL (*CRX) 5 MG TAB IR 10 MG PO ×4 (09:20→22:30)
[2023-04-16 20:00] VITALS: O2SAT 97
[2023-04-16] MEDS: MORPHINE SULFATE ORAL CONC SOL (*CRX) 10 MG/0.5 ML SYRINGE 5 MG PO (21:25)
[2023-04-17] MEDS: MORPHINE SULFATE ORAL CONC SOL (*CRX) 10 MG/0.5 ML SYRINGE 5 MG PO (00:54)
[2023-04-17] MEDS: oxyCODONE HCL (*CRX) 5 MG TAB IR 10 MG PO ×5 (04:57→20:32)
[2023-04-17 08:00] VITALS: O2SAT 97
--- NOTE | 2023-04-17 11:20 | PM.DS ---
DS: Admitting Diagnosis Discharge Date 04/17/23 Admitting Diagnosis acute hypercapnic respiratory failure DS: Discharge Diagnosis Discharge Diagnosis (1) Pneumonia: Code(s): J18.9 - Pneumonia, unspecified organism Status: Acute (2) Lung cancer: Code(s): C34.90 - Malignant neoplasm of unspecified part of unspecified bronchus or lung Status: Acute (3) Acute respiratory failure with hypoxia and hypercapnia: Code(s): J96.01 - Acute respiratory failure with hypoxia; J96.02 - Acute respiratory failure with hypercapnia Status: Acute DS: Summary Hospital Course Hospital Course: 67F w/ PMH morbid obesity, paroxysmal a fib, HFpEF, CKD, HTN, sleep apnea, NIDDM, breast cancer, lung cancer, HLD, hypothyroidism presented with SOB. Admitted on 04/09/23. The patient has chronic comorbidities and has had multiple hospitalizations recently. She also has lung cancer. On April 15 she decided to pursue hospice and comfort care after considering it for some time now. She is discharged in stable but terminal condition to [facility] for hospice care. She will take scopolamine Roxanol and Ativan p.r.n.. She is scheduled oxycodone 10 mg Q 6 hours for her previous underlying chronic pain and lung cancer. all concerns and questions answered to the patient and family to satisfaction. Time Spent with Patient Time attestation: Total time spent providing and/or coordinating discharge services: Exam Const: General: comfortable and no acute distress Resp: Effort & Inspection: normal respiratory effort Auscultation: clear to auscultation bilaterally Cardio: Rate: regular rate Rhythm: regular rhythm Discharge Plan Discharge Attending physician on discharge: Shahrzad Gil Consulting providers: Josie Swenson Discharging Clinician: Shahrzad Gil Patient Disposition: Hospice - Medical Facility Diet: as tolerated Stand Alone Forms: General Discharge Information Discharge Medications: New oxycodone 10 mg tablet 10 mg PO Q4H Qty: 7 0RF lorazepam 1 mg tablet 1 mg PO .q2hr PRN (Reason: anxiety) Qty: 7 0RF morphine concentrate 100 mg/5 mL (20 mg/mL) solution 10 mg PO Q6H PRN (Reason: pain) Qty: 15 0RF scopolamine base 1 mg over 3 days patch 3 day 1 patch transdermal Q72H PRN (Reason: nausea and vomiting) Qty: 4 0RF Discontinued pregabalin [Lyrica] 100 mg capsule 100 mg PO BID cholecalciferol (vitamin D3) 25 mcg (1,000 unit) capsule 50 mcg PO DAILY anastrozole 1 mg tablet 1 mg PO DAILY diphenhydramine-acetaminophen [Tylenol PM Extra Strength] 25-500 mg tablet 2 tablet PO QHS PRN (Reason: Insomnia) furosemide 20 mg tablet See Rx Instructions .ROUTE .COMPLEX Rx Instructions: twice a week on and Mon trazodone 50 mg tablet 25 mg PO QHS PRN (Reason: insomnia) Qty: 10 0RF oxycodone 5 mg tablet 5 mg PO BID PRN (Reason: Breakthrough Pain) metoprolol tartrate 50 mg Tablet 50 mg PO Q6H Qty: 120 0RF diltiazem HCl 180 mg Capsule,Ext.Rel 24h Degradable 180 mg PO QAM Qty: 30 0RF Xarelto 20 mg tablet 20 mg PO QPM pantoprazole 40 mg tablet,delayed release (DR/EC) 40 mg PO DAILY Xtampza ER 18 mg cap,sprinkl,ER12hr(DONT CRUSH) 18 mg PO Q12H Rx Instructions: 01/20-02/04 albuterol sulfate [Ventolin HFA] 90 mcg/actuation HFA aerosol inhaler 1 inh INHALATION DAILY pravastatin 10 mg tablet 10 mg PO DAILY Qty: 90 1RF Januvia 50 mg tablet 50 mg PO DAILY Qty: 90 0RF levothyroxine 88 mcg tablet 88 mcg PO DAILY Qty: 90 0RF Ozempic 1 mg/dose (4 mg/3 mL) pen injector 1 mg subcut WEEKLY Qty: 3 1RF Rx Instructions: on saturdays Date of admission: 04/09/23 16:11 Primary Care Provider: James Hoang Admitting Provider: Javris Spear Attending physician on admission: Jarvis Spear Condition: Terminal
[2023-04-17] MEDS: NEOMYCIN/POLYMYXIN/BACITRACIN OINTMENT PACKET 1 PACKET (12:31)
--- NOTE | 2023-04-17 12:47 | PC.NURSE ---
Per MD Gil, ok to remove PICC line prior to d/c. Provider is ok with either removing gutierrez catheter or keeping in for comfort based on patient preference. Patient prefers to leave gutierrez catheter in for now. Pt. will d/c to [facility] with gutierrez catheter. PICC line removed and patient tolerated procedure well.
[2023-04-17 13:05] LABS: SARS-CoV-2 RNA PCR Negative (Negative)
--- NOTE | 2023-04-17 13:39 | PC.NURSE ---
Called [facility] to give report on patient at [phone]. [place] to call back, left name and number with facility.
--- NOTE | 2023-04-17 14:59 | PC.NURSE ---
Attempted x3 at 1415, 1445 and 1500 to call [facility] with report on patient. Left VM x3 times. Paperwork faxed over to facility and paperwork received. Will continue to try and reach facility to give report.
--- NOTE | 2023-04-17 17:18 | PC.NURSE ---
Pt. is no longer discharging to [facility] due to insurance complications. Family aware. Attempted to inform aziza Andrade for doctor.
[2023-04-17 20:00] VITALS: O2SAT 97
[2023-04-18] MEDS: MORPHINE SULFATE ORAL CONC SOL (*CRX) 10 MG/0.5 ML SYRINGE 5 MG PO (00:15)
[2023-04-18] MEDS: oxyCODONE HCL (*CRX) 5 MG TAB IR 10 MG PO ×4 (00:40→11:41)
[2023-04-18 08:00] VITALS: PULSE 115; RESP 20; O2SAT 97
--- NOTE | 2023-04-18 12:01 | PC.NURSE ---
Several attempts to call report for pt transfer without success. Message left per facility answering machine to call back for report prior to pt transfer time of 1 PM.
--- NOTE | 2023-04-18 12:15 | PC.NURSE ---
Nursing from [place] returned call stating that this nurse called the wrong department. Call sent to a different extension with no answer. Message left again for nursing to call prior to 1PM citrus picker time.
== END 2023-04-18 13:30 | disposition hospice, inpatient (51) | DRG 208 ==
LOC: ANHED 13:43 → ANHICU 15:37 → ANHIMU 04-15 11:29 → ANH3MEDSUR 04-15 19:03
PROVIDERS: General Practice; Internal Medicine; Physician Assistant; Admitting Provider Internal Medicine; Emergency Provider Emergency Medicine; PCP Family Medicine; Visit Provider Internal Medicine
DX: J96.01 Acute respiratory failure with hypoxia (principal); J18.9 Pneumonia, unspecified organism; I13.0 Hypertensive heart and chronic kidney disease with heart failure and stage 1 through stage 4 chronic kidney disease, or unspecified chronic kidney disease; I50.31 Acute diastolic (congestive) heart failure; Z68.44 Body mass index [BMI] 60.0-69.9, adult; C34.92 Malignant neoplasm of unspecified part of left bronchus or lung; J96.02 Acute respiratory failure with hypercapnia; C50.911 Malignant neoplasm of unspecified site of right female breast; D69.6 Thrombocytopenia, unspecified; D53.9 Nutritional anemia, unspecified; E66.01 Morbid (severe) obesity due to excess calories; E87.6 Hypokalemia; E78.5 Hyperlipidemia, unspecified; E55.9 Vitamin D deficiency, unspecified; E11.40 Type 2 diabetes mellitus with diabetic neuropathy, unspecified; E11.22 Type 2 diabetes mellitus with diabetic chronic kidney disease; E03.9 Hypothyroidism, unspecified; G47.00 Insomnia, unspecified; G47.33 Obstructive sleep apnea (adult) (pediatric); I48.0 Paroxysmal atrial fibrillation; N18.9 Chronic kidney disease, unspecified; Z79.01 Long term (current) use of anticoagulants; Z66 Do not resuscitate; Z79.85 Long-term (current) use of injectable non-insulin antidiabetic drugs; Z11.52 Encounter for screening for COVID-19
CPT/HCPCS: 31500; 36415; 36569; 36600; 71045; 71260; 74177; 80048; 80053; 80202; 81001; 82375; 82805; 82948; 83050; 83605; 83735; 83880; 84100; 84145; 84478; 85025; 85046; 85055; 85384; 85610; 85730; 86140; 87070; 87205; 87635; 87637; 87641; 93005; 94002; 94003; 94640; 96365; 96375; 97166; 99291; A9270; C1751; C9113; J0282; J0692; J1815; J1940; J2060; J2704; J3010; J3370; J3480; J7030; J7120; Q9967